=== PATIENT | male | born 1950 | race Caucasian/White ===

== ENCOUNTER 2020-05-19 01:09 | Outpatient (CLI) | payer MEDICARE, BC, SELFPAY ==
[2020-05-19 20:15] LABS: SARS-CoV-2 RNA PCR Negative
== END 2020-05-19 01:10 | disposition home or self-care (01) ==
LOC: ANHCOVIDDT 01:10
PROVIDERS: PCP Family Medicine; Visit Provider Internal Medicine Gastroenterology
DX: Z01.812 Encounter for preprocedural laboratory examination (principal); Z20.828 Contact with and (suspected) exposure to other viral communicable diseases
CPT/HCPCS: 87635; C9803; U0003

== ENCOUNTER 2020-05-22 01:12 | Day surgery (SDC) | payer MEDICARE, BC, SELFPAY ==
[2020-05-16 10:07] VITALS: BMI 22.7
[2020-05-22 07:40] VITALS: BP 142/85; PULSE 69; RESP 20; TEMP 36.4; O2SAT 98
[2020-05-22] MEDS: LACTATED RINGERS 1,000 ML 150 ML IV CONT (07:53)
--- NOTE | 2020-05-22 08:14 | WPDANESEPPF ---
Anes - Initial Pre Proc Eval Procedure: Operation Date: 05/22/20 09:00 Proposed Procedures p Esophagogastroduodenoscopy - Yifan Simpson MD Date/Time: 05/22/20 08:14 Surgeon: Yifan Simpson MD Pre Op Diagnosis: dysphagia Patient Data Age: 69 Gender: M Height: 5 ft 10 in Weight: 68.7 kg Last Vital Signs Temp 36.4 C L 05/22/20 07:40 Pulse 69 05/22/20 07:40 Resp 20 05/22/20 07:40 BP 142/85 H 05/22/20 07:40 Pulse Ox 98 05/22/20 07:40 Allergies Allergy/AdvReac Type Severity Reaction Status Date / Time cat dander Allergy Mild Congested Verified 05/22/20 07:37 Home Medications Medication Instructions Recorded Confirmed Type travoprost 0.004 % eye drops 1 drop EACH EYE QPM 06/23/19 05/16/20 History omeprazole 40 mg capsule,delayed 40 mg PO DAILY #30 cap 04/26/20 05/16/20 Rx release Patient hx anesthesia problems: none Family hx anesthesia problems: none PMFSH Past Medical History Medical History Cerebral atherosclerosis Dysphagia History of bleeding peptic ulcer Tear of medial meniscus of right knee Social History Social History Smoking packs per day: 1 Smoking cigarettes per day: 20.0 Years smoked: 2 Smoking pack-years: 2.00 Smoking status: Former smoker Alcohol intake: current Drinks per week: 1 Substance use: never Substance use type: does not use Living arrangements: with family Gender identity (if verbalized by the patient): Male Spiritual care concerns: No Anes - Eval Final PreProcedure Day of Procedure 05/22/20 08:14 Patient weight: normal Heart: regular rate and rhythm Lungs: clear to auscultation Airway: Mallampati scale class II Neurological: alert and oriented Last oral intake: >/= 8 hours ASA classification: II Emergent: no Anesthetic plan: proceed Anesthesia type and monitoring: general GIVS and standard monitoring Informed Consent: The patient's anesthetic plan and its attendant risks and benefits were discussed with the patient/family/POA. Questions were solicited and answers provided to the satisfaction of the patient/family/POA.
--- NOTE | 2020-05-22 08:41 | WPDGICN ---
Assessment and Plan Assessment and plan (1) Dysphagia: Qualifiers: Dysphagia type: esophageal phase Qualified Code(s): R13.10 - Dysphagia, unspecified Code(s): R13.10 - Dysphagia, unspecified Status: Acute Assessment and Plan: Patient has difficulty with food catching in the mid epigastric area. Plan to evaluate more thoroughly with EGD. Agree with trial of omeprazole 20 mg p.o. daily. Soft diet is advised. Further recommendations will be given after endoscopy. (2) History of bleeding peptic ulcer: Code(s): Z87.11 - Personal history of peptic ulcer disease Status: Acute GI Consult Note Consult date/time: 05/22/20 08:41 HPI: Suhail Elise is a 69 year old male Seen in evaluation at the request of Dr. Ambrose Watkins. Patient has a history of difficulty swallowing over the last several years. He states food will enter the stomach but probably hold up. This happens more commonly with solid foods rather than liquids. He will feel gassy. Feels full very quickly. Eventually this will pass and he will feel better. He has noticed some improvement on taking omeprazole over the last 3 weeks. He has a rather vague upper abdominal discomfort. He denies any weight loss or bleeding. Omeprazole over the last 3 weeks has helped to some degree. The patient gives a very distant history of peptic ulcer disease for which she was treated. He had bleeding. He was treated for H pylori at that time. Family history is noncontributory. Patient denies any weight loss or bleeding currently. Review of Systems Review of Systems: All systems reviewed & are unremarkable except as noted in HPI and below PMFSH Past Medical History Medical History Cerebral atherosclerosis Dysphagia History of bleeding peptic ulcer Tear of medial meniscus of right knee Social History Social History Smoking packs per day: 1 Smoking cigarettes per day: 20.0 Years smoked: 2 Smoking pack-years: 2.00 Smoking status: Former smoker Alcohol intake: current Drinks per week: 1 Substance use: never Substance use type: does not use Living arrangements: with family Gender identity (if verbalized by the patient): Male Spiritual care concerns: No Meds Home Medications and Allergies Home Medications Medication Instructions Recorded Confirmed Type travoprost 0.004 % eye drops 1 drop EACH EYE QPM 06/23/19 05/16/20 History omeprazole 40 mg capsule,delayed 40 mg PO DAILY #30 cap 04/26/20 05/16/20 Rx release Allergies Allergy/AdvReac Type Severity Reaction Status Date / Time cat dander Allergy Mild Congested Verified 05/22/20 07:37 Vital Signs Vital Signs - 24 hr 05/22/20 07:40 Temperature 97.5 F L Pulse Rate 69 Respiratory Rate 20 Blood Pressure 142/85 H Pulse Oximetry 98 Exam Narrative: Exam Narrative: Physical exam reveals patient to be alert. Vital signs stable. HEENT exam unremarkable. Lungs are clear to auscultation and percussion. Heart is without murmur or extra sounds. Abdominal exam bowel sounds are present soft nontender no organomegaly. No distention. No tenderness.
[2020-05-22] MEDS: BENZOCAINE (*SP) 60 ML SPRAY CAN (HURRICAINE) 1 SPRAY MUCOUS MEM (08:52)
[2020-05-22 08:58] VITALS: BP 122/81; PULSE 68; RESP 18; O2SAT 97
[2020-05-22 09:08] VITALS: BP 128/64; PULSE 64; RESP 20; O2SAT 98
[2020-05-22 09:18] VITALS: BP 131/64; PULSE 57; RESP 15; O2SAT 99
== END 2020-05-22 09:38 | disposition home or self-care (01) ==
PROVIDERS: PCP Family Medicine; Visit Provider Internal Medicine Gastroenterology
PROC: 0DJ08ZZ Inspection of Upper Intestinal Tract, Via Natural or Artificial Opening Endoscopic (ICD-10-PCS; CPT 43235; principal; 2020-05-22 09:00)
DX: R13.10 Dysphagia, unspecified (principal); Q39.4 Esophageal web; Z87.11 Personal history of peptic ulcer disease; I67.2 Cerebral atherosclerosis; Z87.891 Personal history of nicotine dependence
CPT/HCPCS: 43450; 43235; J2704; J7120

== ENCOUNTER 2020-08-14 09:14 | Outpatient (CLI) | payer MEDICARE, BC, SELFPAY | END 2020-08-14 09:15 | disposition home or self-care (01) | LOC: ANHCOVIDVC 09:14 | PROVIDERS: PCP Family Medicine | DX: Z23 Encounter for immunization (principal) | CPT/HCPCS: 0001A; 91300 ==

== ENCOUNTER 2020-09-04 09:13 | Outpatient (CLI) | payer MEDICARE, BC, SELFPAY | END 2020-09-04 09:14 | disposition home or self-care (01) | LOC: ANHCOVIDVC 09:13 | PROVIDERS: PCP Family Medicine | DX: Z23 Encounter for immunization (principal) | CPT/HCPCS: 0002A; 91300 ==

== ENCOUNTER 2021-01-31 06:41 | Outpatient (CLI) | payer MEDICARE, BC, SELFPAY ==
[2021-01-31 08:04] LABS: Anion Gap 6 mmol/L (8-16); Blood Urea Nitrogen 19 mg/dL (9-20); Calcium 9.1 mg/dL (8.4-10.2); Carbon Dioxide 27 mmol/L (22-30); Chloride 107 mmol/L (98-107); Cholesterol 147 mg/dL (0-200); Estimated Glomerular Filt Rate > 60; Glucose 101 mg/dL (65-110); HDL Direct 44 mg/dL; Sodium 140 mmol/L (137-145); Triglycerides 96 mg/dL (<150)
[2021-01-31 08:16] LABS: LDL Cholesterol Direct 72 mg/dL
[2021-01-31 08:35] LABS: Prostate Specific Antigen 2.1 ng/mL (< OR = 4.0)
== END 2021-01-31 06:42 | disposition home or self-care (01) ==
PROVIDERS: PCP Family Medicine; Visit Provider Physician Assistant Medical
DX: Z13.1 Encounter for screening for diabetes mellitus (principal); E78.5 Hyperlipidemia, unspecified; Z13.220 Encounter for screening for lipoid disorders; Z12.5 Encounter for screening for malignant neoplasm of prostate
CPT/HCPCS: 36415; 80048; 80061; 84153; G0103

== ENCOUNTER 2021-10-12 06:49 | Outpatient (CLI) | payer MEDICARE, BC, SELFPAY ==
[2021-10-12 08:09] LABS: Alanine Aminotransferase 15 U/L (4-50); Cholesterol 155 mg/dL (0-200); Creatine Kinase 148 U/L (55-170); HDL Direct 43 mg/dL; Triglycerides 64 mg/dL (<150)
[2021-10-12 08:20] LABS: LDL Cholesterol Direct 80 mg/dL
== END 2021-10-12 06:50 | disposition home or self-care (01) ==
LOC: ANHLAB 06:53
PROVIDERS: PCP Family Medicine; Visit Provider Physician Assistant Medical
DX: E78.5 Hyperlipidemia, unspecified (principal)
CPT/HCPCS: 36415; 80061; 82550; 84460

== ENCOUNTER 2022-09-16 06:50 | Outpatient (CLI) | payer MEDICARE, BC, SELFPAY ==
[2022-09-16 07:33] LABS: Anion Gap 6 mmol/L (8-16); Blood Urea Nitrogen 21 mg/dL (9-20); Calcium 8.6 mg/dL (8.4-10.2); Carbon Dioxide 29 mmol/L (22-30); Chloride 105 mmol/L (98-107); Cholesterol 137 mg/dL (0-200); Estimated Glomerular Filt Rate > 60; Glucose 91 mg/dL (65-110); HDL Direct 41 mg/dL; Potassium 3.9 mmol/L (3.4-5.0); Sodium 140 mmol/L (137-145); Triglycerides 106 mg/dL (<150)
[2022-09-16 07:47] LABS: LDL Cholesterol Direct 74 mg/dL
[2022-09-16 08:03] LABS: Prostate Specific Antigen 2.7 ng/mL (< OR = 4.0)
== END 2022-09-16 06:51 | disposition home or self-care (01) ==
LOC: ANHLAB 06:51
PROVIDERS: PCP Family Medicine; Visit Provider Nurse Practitioner Family
DX: R13.10 Dysphagia, unspecified (principal); E78.5 Hyperlipidemia, unspecified; Z12.5 Encounter for screening for malignant neoplasm of prostate; Z13.29 Encounter for screening for other suspected endocrine disorder
CPT/HCPCS: 36415; 80048; 80061; 84153; 84443; G0103

== ENCOUNTER 2022-10-14 15:15 | Emergency (ER) | payer MEDICARE, BC, SELFPAY ==
--- NOTE | ~2022-10-14 | XR_ITS ---
EXAMINATION: XR chest 2V 10/14/2022 16:50 INDICATION: Shortness of breath PROCEDURE: 2 view chest COMPARISON: 09/04/2014 FINDINGS: The lungs are clear. The cardiomediastinal silhouette is within normal limits. There are no pleural effusions. There is no pneumothorax suspected. IMPRESSION: 1: NO ACUTE CARDIOPULMONARY DISEASE. Reviewed, dictated and finalized at location L.
[2022-10-14 15:25] VITALS: BP 137/70; PULSE 60; RESP 16; TEMP 36.6; O2SAT 96
--- NOTE | 2022-10-14 15:33 | ECG_ITS ---
Measurements Intervals [place] Rate: 58 P: -43 NV: 146 QRS: 28 QRSD: 101 T: 30 QT: 391 QTc: 385 Interpretive Statements SINUS BRADYCARDIA CANNOT RULE OUT SEPTAL INFARCT, AGE INDETERMINATE ABNORMAL ECG NO PREVIOUS ECG AVAILABLE FOR COMPARISON Electronically Signed On 10-15-2022 14:08:46 CDT by Ousmane Palomino D.O.
[2022-10-14 16:53] LABS: Basophils Percent Auto 0.8 % (0.2-1.2); Eosinophils Absolute Auto 0.1 K/mm3 (0-0.3); Eosinophils Percent Auto 2.2 % (0-4.4); Hematocrit 43.6 % (42.0-52.0); Hemoglobin 15.5 g/dL (14.0-18.0); Immature Granulocyte Absolute 0.01 K/mm3 (0.00-0.031); Immature Granulocyte Percent A 0.2 % (0-0.5); Lymphocytes Absolute Auto 1.22 K/mm3 (0.9-3.2); Lymphocytes Percent Auto 24.5 % (18.3-44.2); Mean Corpuscular HGB Conc 35.6 g/dl (32-36); Mean Corpuscular Hemoglobin 33.3 pg (26-34); Mean Corpuscular Volume 93.6 fl (80-100); Mean Platelet Volume 10.2 fl (7.4-10.4); Monocytes Absolute Auto 0.5 K/mm3 (0.1-0.6); Monocytes Percent Auto 10.2 % (2.6-8.5); Neutrophils Absolute Auto 3.1 K/mm3 (1.3-6.7); Neutrophils Percent Auto 62.1 % (45.5-73.1); Platelet Count Result 217 k/mm3 (150-375); Red Blood Count 4.66 M/mm3 (4.6-6.20); Red Cell Distribution Width 12.9 % (11.5-14.5)
[2022-10-14 17:04] LABS: Alanine Aminotransferase 18 U/L (6-50); Albumin Level 4.3 g/dL (3.5-5.1); Alkaline Phosphatase 61 U/L (38-126); Anion Gap 5 mmol/L (8-16); Aspartate Amino Transferase 29 U/L (17-59); Blood Urea Nitrogen 21 mg/dL (9-20); Carbon Dioxide 26 mmol/L (22-30); Chloride 107 mmol/L (98-107); Estimated CRCL calculation 49 ml/min; Estimated Glomerular Filt Rate 59; Glucose 95 mg/dL (65-110); Sodium 138 mmol/L (137-145)
--- NOTE | 2022-10-14 17:48 | ED.GENADULT ---
HPI - General Adult General Chief complaint: Shortness of Breath/Dyspnea Stated complaint: generalized weakness Time Seen by Provider: 10/14/22 16:40 Source: patient and family Mode of arrival: ambulatory Limitations: no limitations History of Present Illness HPI narrative: 71-year-old here with complaints of intermittent shortness of breath. Patient states that he has to take a deep breath, several times a day at times. He denied having any chest pain. He also states that they have after eating meal he has to take a deep breath. He states that he is not anxious but it is making him stressful. Related Data Home Medications Medication Instructions Recorded Confirmed travoprost 0.004 % eye drops 1 drop ophthalmic (eye) QPM 06/23/19 09/15/22 (Travatan Z) Allergies Allergy/AdvReac Type Severity Reaction Status Date / Time No Known Allergies Allergy Verified 10/14/22 16:40 Review of Systems Review of Systems: All systems reviewed & are unremarkable except as noted in HPI and below Constitutional: Constitutional: Reports no additional constitutional complaints Eyes: Eyes: Reports no additional eye complaints ENT: Reports system reviewed and no additional complaints, except as documented Cardiovascular: Cardiovascular: Reports no additional cardiovascular complaints Respiratory: Respiratory: Reports as per HPI Gastrointestinal: Gastrointestinal: Reports no additional gastrointestinal complaints Genitourinary: Genitourinary: Reports no additional male genitourinary complaints Musculoskeletal: Musculoskeletal: Reports no additional musculoskeletal complaints Integumentary/Breasts: Skin/Breast: Reports system reviewed and no additional complaints, except as docu Neurologic: Reports system reviewed and no additional complaints, except as documented PMF Past Medical History Medical History BMI 21.0-21.9, adult Cerebral atherosclerosis Dysphagia History of bleeding peptic ulcer Tear of medial meniscus of right knee Surgical History Surgical History H/O knee surgery Family History Family History Mother No problems noted. Sibling No problems noted. Social History Social History Smoking packs per day: 1 Smoking cigarettes per day: 20.0 Years smoked: 2 Smoking pack-years: 2.00 Smoking status: Former smoker Second hand tobacco smoke exposure: No Alcohol intake: current Drinks per week: 1 Substance use: never Substance use type: does not use Lack of Transportation: No Lack of Food: Never True Current Housing: I Have Housing Concerned About Future Housing: No Difficulty Paying Gas/Electric Bills: No Difficulty Paying for Meds: No Currently Unemployed: No Education: Bachelor's Degree Difficulty w/ Childcare or Family Care: No Living arrangements: with family Occupation/Education: retired 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 HEAD: Normocephalic, atraumatic. EYES: PERRLA and EOMI.. NECK: Supple. CHEST: Clear to auscultation. No respiratory distress. HEART: Regular rate and rhythm. No murmur heard. Normal peripheral pulses. ABDOMEN: Soft, nontender, nondistended, normal active bowel sounds. EXTREMITIES: Normal range of motion. No edema. SKIN: Warm, dry, no rash. NEURO: No focal deficits. Alert and oriented x3. PSYCH: Normal mood and affect. Course Course Emergency Course: Patient remained asymptomatic while he was here in the ER. Informed him and his about his lab work, EKG and chest x-ray findings. Because of intermittent take deep b
[2022-10-14 18:16] VITALS: RESP 20; O2SAT 100
== END 2022-10-14 18:17 | disposition home or self-care (01) ==
LOC: ANHED 18:02
PROVIDERS: Preventive Medicine Aerospace Medicine; Emergency Provider Family Medicine; PCP Family Medicine
DX: F41.9 Anxiety disorder, unspecified (principal); I67.2 Cerebral atherosclerosis; Z87.891 Personal history of nicotine dependence; R00.1 Bradycardia, unspecified; R94.31 Abnormal electrocardiogram [ECG] [EKG]
CPT/HCPCS: 36415; 71046; 80053; 85025; 93005; 99284

== ENCOUNTER 2022-10-30 07:49 | Outpatient (CLI) | payer MEDICARE, BC, SELFPAY ==
--- NOTE | ~2022-10-30 | NM_ITS ---
EXAM: NM gastric emptying study DATE: 10/30/2022 13:01 CDT INDICATION: Esophageal obstruction TECHNIQUE: A gastric emptying study was performed using the methodology of Keiry HAYDEN, et al. J Nucl Med 2007; 48:568-572. The patient was given a meal consisting of 2 scrambled eggs labeled with 0.944 mCi Tc-99m sulfur colloid, 2 slices of toast, two packages of jam, and approximately 120 mL of water . Simultaneous anterior and posterior 1-min images of the abdomen were obtained with the patient supi ne at multiple time points over a total period of 4 hours. The geometric mean of anterior and posteri or views was determined, and the percentage retention was calculated for each time point. COMPARISON: CT dated 02/14/2019 FINDINGS: Gastric retention of the radiotracer-labeled meal was 50%, 32%, and 3% at the 1-hour, 2-ho ur, and 4-hour time points, respectively. With this technique, apparent rapid gastric emptying is sug gested by <30% gastric retention at 1 hour. Delayed gastric emptying is defined by gastric retention of >90% at 1 hour, >60% retention at 2 hours, or >10% retention at 4 hours. IMPRESSION: 1. Normal gastric emptying. Reviewed, dictated and finalized at location L. IMPRESSION: 1. Normal gastric emptying.
== END 2022-10-30 07:50 | disposition home or self-care (01) ==
PROVIDERS: PCP Family Medicine; Visit Provider Family Medicine
DX: K22.2 Esophageal obstruction (principal); R14.0 Abdominal distension (gaseous)
CPT/HCPCS: 78264; A9541

== ENCOUNTER 2023-09-30 07:42 | Outpatient (CLI) | payer MEDICARE, BC, SELFPAY ==
[2023-09-30 08:31] LABS: Alanine Aminotransferase 16 U/L (6-50); Albumin Level 4.4 g/dL (3.5-5.1); Alkaline Phosphatase 60 U/L (38-126); Anion Gap 5 mmol/L (4-12); Aspartate Amino Transferase 27 U/L (17-59); Bilirubin,Total 1.1 mg/dL (0.2-1.3); Blood Urea Nitrogen 16 mg/dL (9-20); Calcium 9.4 mg/dL (8.4-10.2); Carbon Dioxide 28 mmol/L (22-30); Chloride 108 mmol/L (98-107); Cholesterol 137 mg/dL (0-200); Estimated Glomerular Filt Rate > 60; Glucose 107 mg/dL (65-110); HDL Direct 46 mg/dL; Potassium 4.5 mmol/L (3.4-5.0); Sodium 141 mmol/L (137-145); Triglycerides 109 mg/dL (<150)
[2023-09-30 08:42] LABS: LDL Cholesterol Direct 78 mg/dL
[2023-09-30 09:01] LABS: Prostate Specific Antigen 3.9 ng/mL (< OR = 4.0)
== END 2023-09-30 07:43 | disposition home or self-care (01) ==
LOC: ANHLAB 07:46
PROVIDERS: PCP Family Medicine; Visit Provider Nurse Practitioner Family
DX: Z12.5 Encounter for screening for malignant neoplasm of prostate (principal); E78.5 Hyperlipidemia, unspecified; Z13.29 Encounter for screening for other suspected endocrine disorder
CPT/HCPCS: 36415; 80053; 80061; 84153; 84443; G0103

== ENCOUNTER 2024-03-04 14:09 | Outpatient (CLI) | payer MEDICARE, BC, SELFPAY ==
[2024-03-04 15:03] LABS: Basophils Percent Auto 0.7 % (0.2-1.2); Eosinophils Absolute Auto 0.1 K/mm3 (0-0.3); Eosinophils Percent Auto 3.3 % (0-4.4); Hematocrit 42.5 % (42.0-52.0); Hemoglobin 15.5 g/dL (14.0-18.0); Immature Granulocyte Absolute 0.01 K/mm3 (0.00-0.031); Immature Granulocyte Percent A 0.2 % (0-0.5); Lymphocytes Absolute Auto 1.35 K/mm3 (0.9-3.2); Mean Corpuscular HGB Conc 36.5 g/dl (32-36); Mean Corpuscular Hemoglobin 33.5 pg (26-34); Mean Platelet Volume 10.4 fl (7.4-10.4); Monocytes Absolute Auto 0.4 K/mm3 (0.1-0.6); Monocytes Percent Auto 10.2 % (2.6-8.5); Neutrophils Absolute Auto 2.3 K/mm3 (1.3-6.7); Neutrophils Percent Auto 53.6 % (45.5-73.1); Platelet Count Result 221 k/mm3 (150-375); Red Blood Count 4.62 M/mm3 (4.6-6.20); White Blood Count 4.2 K/mm3 (4.5-10.0)
[2024-03-04 15:27] LABS: Alanine Aminotransferase 14 U/L (6-50); Albumin Level 4.1 g/dL (3.5-5.1); Alkaline Phosphatase 57 U/L (38-126); Anion Gap 8 mmol/L (4-12); Aspartate Amino Transferase 28 U/L (17-59); Bilirubin,Total 1.2 mg/dL (0.2-1.3); Blood Urea Nitrogen 21 mg/dL (9-20); Calcium 8.9 mg/dL (8.4-10.2); Carbon Dioxide 27 mmol/L (22-30); Chloride 106 mmol/L (98-107); Estimated Glomerular Filt Rate > 60; Glucose 93 mg/dL (65-110); Potassium 3.8 mmol/L (3.4-5.0); Sodium 141 mmol/L (137-145)
[2024-03-04 15:51] LABS: Prostate Specific Antigen 3.6 ng/mL (< OR = 4.0)
== END 2024-03-04 14:10 | disposition home or self-care (01) ==
PROVIDERS: PCP Family Medicine; Visit Provider Physician Assistant Medical
DX: D72.9 Disorder of white blood cells, unspecified (principal); R10.11 Right upper quadrant pain; G89.29 Other chronic pain; R97.20 Elevated prostate specific antigen [PSA]
CPT/HCPCS: 36415; 80053; 84153; 85025; 86664; 86665

== ENCOUNTER 2024-03-10 09:39 | Outpatient (CLI) | payer MEDICARE, BC, SELFPAY ==
--- NOTE | ~2024-03-10 | US_ITS ---
Abdominal Sonogram: Real-time sonographic imaging of the abdomen was performed. Clinical History: Abdominal pain Findings: The liver appears normal with no evidence of solid mass lesion or bile duct dilatation. Sm all hepatic cyst noted. Main portal vein demonstrates normal direction of flow. The spleen is normal in size without evidence of focal lesion. The gallbladder is well distended, and appears normal with no evidence of gallstone or wall thickening. The common bile duct measures 4 mm. The visualized fraire creas, aorta, and IVC are unremarkable. The right kidney measures 10.2 cm in length and the left kid jered measures 10.8 cm. There is no hydronephrosis or renal calculus. Impression: No significant abnormality. Reviewed, dictated and finalized at [facility]. Impression: No significant abnormality.
== END 2024-03-10 09:40 | disposition home or self-care (01) ==
LOC: ANHIMG 09:41
PROVIDERS: PCP Family Medicine; Visit Provider Physician Assistant Medical
DX: G89.29 Other chronic pain (principal); R10.11 Right upper quadrant pain
CPT/HCPCS: 76700

== ENCOUNTER 2024-04-06 08:12 | Outpatient (CLI) | payer MEDICARE, BC, SELFPAY ==
[2024-04-06 09:07] LABS: Basophils Percent Auto 0.8 % (0.2-1.2); Eosinophils Absolute Auto 0.2 K/mm3 (0-0.3); Eosinophils Percent Auto 3.9 % (0-4.4); Hematocrit 46.2 % (42.0-52.0); Hemoglobin 16.4 g/dL (14.0-18.0); Immature Granulocyte Absolute 0.01 K/mm3 (0.00-0.031); Immature Granulocyte Percent A 0.3 % (0-0.5); Lymphocytes Absolute Auto 1.25 K/mm3 (0.9-3.2); Lymphocytes Percent Auto 32.1 % (18.3-44.2); Mean Corpuscular HGB Conc 35.5 g/dl (32-36); Mean Corpuscular Hemoglobin 33.1 pg (26-34); Mean Corpuscular Volume 93.3 fl (80-100); Mean Platelet Volume 10.6 fl (7.4-10.4); Monocytes Absolute Auto 0.4 K/mm3 (0.1-0.6); Monocytes Percent Auto 10.3 % (2.6-8.5); Neutrophils Absolute Auto 2.1 K/mm3 (1.3-6.7); Neutrophils Percent Auto 52.6 % (45.5-73.1); Platelet Count Result 207 k/mm3 (150-375); Red Blood Count 4.95 M/mm3 (4.6-6.20); Red Cell Distribution Width 12.8 % (11.5-14.5); White Blood Count 3.9 K/mm3 (4.5-10.0)
== END 2024-04-06 08:13 | disposition home or self-care (01) ==
PROVIDERS: PCP Family Medicine; Visit Provider Physician Assistant Medical
DX: R14.0 Abdominal distension (gaseous) (principal); D72.9 Disorder of white blood cells, unspecified
CPT/HCPCS: 36415; 85025

== ENCOUNTER 2024-05-06 08:49 | Emergency (ER) | payer MEDICARE, BC, SELFPAY ==
--- NOTE | ~2024-05-06 | XR_ITS ---
EXAMINATION: XR shoulder LT min 2V DATE: 05/06/2024 09:12 INDICATION: Left shoulder pain post fall TECHNIQUE: AP internally and externally rotated, AP oblique externally rotated and transscapular Y vi ews of the left shoulder were obtained. COMPARISON: None FINDINGS: Normal alignment. No fracture.Mild left of acromioclavicular and glenohumeral osteoarthritis. Visual ized portions of the left lung are clear with no pneumothorax or evident pleural effusion. Soft tissu es are unremarkable. 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 No acute osseous abnormality Reviewed, dictated and finalized at location A. [facility]
[2024-05-06 08:54] VITALS: BP 146/84; PULSE 61; RESP 18; TEMP 36.6; O2SAT 100
--- NOTE | 2024-05-06 09:37 | ED_ITS ---
HPI - Extremity Injury (Upper) General Chief Complaint: Extremity Injury, Upper Stated Complaint: fall yesterday, L shoulder pain Time Seen by Provider: 05/06/24 09:03 Source: patient Mode of arrival: ambulatory Limitations: no limitations History of Present Illness HPI narrative: this is a 73-year-old male that presents to the emergency department after a fall yesterday. Reports he tripped and fell down about 2 steps. He landed on his left shoulder. Reports decreased range of motion in the shoulder due to pain. He did not hit his head or lose consciousness. He is not on anticoagulation. Denies weakness or numbness. Related Data Home Medications Medication Instructions Recorded Confirmed travoprost 0.004 % eye drops 1 drop ophthalmic (eye) QPM 06/23/20 03/01/24 (Travatan Z) Allergies Allergy/AdvReac Type Severity Reaction Status Date / Time No Known Allergies Allergy Verified 05/06/24 08:50 Review of Systems Review of Systems: CONSTITUTIONAL: Denies fever MUSCULOSKELETAL: Reports joint pain, and myalgia. NEUROLOGIC: Denies numbness, or weakness. All systems reviewed & are unremarkable except as noted in HPI and below PMFSH Past Medical History Medical History Bloating BMI 21.0-21.9, adult Cerebral atherosclerosis Dysphagia Esophageal stricture History of bleeding peptic ulcer Tear of medial meniscus of right knee Surgical History Surgical History H/O knee surgery Family History Family History Mother No problems noted. Sibling No problems noted. Social History Social History Smoking packs per day: 1 Smoking cigarettes per day: 20.0 Years smoked: 2 Smoking pack-years: 2.00 Smoking status: Former smoker Second hand tobacco smoke exposure: No Alcohol intake: current Drinks per week: 1 Substance use: never Substance use type: does not use Lack of Transportation: No Lack of Food: Never True Current Housing: I Have Housing Concerned About Future Housing: No Difficulty Paying Gas/Electric Bills: No Difficulty Paying for Meds: No Currently Unemployed: No Education: Bachelor's Degree Difficulty w/ Childcare or Family Care: No Living arrangements: with family Occupation/Education: retired 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 HEAD: Normocephalic, atraumatic. EYES: EOMI. CHEST: Clear to auscultation. No respiratory distress. No wheezes rales or rhonchi HEART: Regular rate and rhythm. No murmur heard. Normal peripheral pulses. EXTREMITIES: Decreased active range of motion in the left shoulder due to pain. No edema or obvious deformity. Normal radial pulse. Normal sensation SKIN: Warm, dry, no rash. NEURO: No focal deficits. Alert and oriented x3. PSYCH: Normal mood and affect Course Course Emergency Course: patient updated on his workup. Offered further evaluation with advanced imaging with CT scan, he declines at this time. Will be placed in sling and given follow-up with Orthopedics Vital Signs Vital signs: Vital Signs Temperature 97.9 F 05/06/24 08:54 Pulse Rate 61 05/06/24 08:54 Respiratory Rate 18 05/06/24 08:54 Blood Pressure 146/84 H 05/06/24 08:54 Pulse Oximetry 100 05/06/24 08:54 Oxygen Delivery Room Air 05/06/24 08:54 Temperature 97.9 F 05/06/24 08:54 Pulse Rate 61 05/06/24 08:54 Respiratory Rate 18 05/06/24 08:54 Blood Pressure 146/84 H 05/06/24 08:54 Pulse Oximetry 100 05/06/24 08:54 Oxygen Delivery Room Air 05/06/24 08:54 MDM - Extremity Injury (Upper) MDM Narrative Medical decision making narrative: patient presents to the emergency department after a fall yesterday with left shoulder pain. Reports he fell down 2 steps. Landed on his left shoulder. He did not hit his head or lose consciousness. He is not on anticoagulation. No other focal injuries or areas of pain. He is neurovascularly intact. Left shoulder x-ray shows mild osteoarthritis. No acute osseous abnormalities. Patient placed in a sling for comfort and instructed to follow up with his orthopedics doctor. 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 No acute osseous abnormality Critical Care Time Critical Care Time Critical Care Time: No Discharge Plan Discharge Clinical Impression: Shoulder sprain Qualifiers: Encounter type: initial encounter Shoulder sprain type: unspecified sprain Laterality: left Qualified Code(s): S43.402A - Unspecified sprain of left shoulder joint, initial encounter Patient Disposition: Home, Self-Care Condition: Stable Instructions: Shoulder Sprain (ED) Additional Instructions: Return to the ER if you experience fever, weakness, numbness, redness and swelling of your arm, or any other symptoms that are concerning to you Rest, use ice/heat, take anti-inflammatories (Aleve, Ibuprofen, Naproxen, etc) or Tylenol as needed for pain Follow up with your orthopedics doctor Prescriptions: No Action travoprost [Travatan Z] 0.004 % drops 1 drop EACH EYE QPM omeprazole 20 mg capsule,delayed release(DR/EC) 20 mg PO DAILY Qty: 30 12RF Follow-up/Referrals: Ambrose Watkins MD [Primary Care Provider] - Loc Nicolas MD [Physician] -
== END 2024-05-06 09:51 | disposition home or self-care (01) ==
PROVIDERS: Emergency Provider Physician Assistant; PCP Family Medicine
DX: S43.402A Unspecified sprain of left shoulder joint, initial encounter (principal); W10.9XXA Fall (on) (from) unspecified stairs and steps, initial encounter; Z87.891 Personal history of nicotine dependence
CPT/HCPCS: 73030; 99283; A4565

== ENCOUNTER 2024-07-11 13:09 | Outpatient (CLI) | payer MEDICARE, BC, SELFPAY ==
--- NOTE | ~2024-07-11 | XR_ITS ---
Right Knee Technique: AP, lateral, and sunrise views were obtained. Clinical History: Pain Findings: No fracture or dislocation is seen. Osseous alignment is anatomic. There is mild tricompart mental degenerative spurring. There is chondrocalcinosis of the lateral meniscus. Small joint effusio n is seen. Impression: Mild degenerative change. Chondrocalcinosis, as above. Small joint effusion. Reviewed, dictated and finalized at location [facility] Impression: Mild degenerative change. Chondrocalcinosis, as above. Small joint effusion.
--- OUTSIDE RECORDS SUMMARY | 2024-07-11 14:08 | XMS_ITS | Patient Health Summary ---
Author Organization [facility] Address [address] [place] [address] Care Team Providers Care [employer] Medical Sergeant Name Role Phone Ambrose Watkins MD Primary Care Provider [phone] Note from [facility],non-owned Affiliates and Associated Physician Practices is amultiple site organization consisting of ambulatory clinics and hospital sitesin [place], [place], [place] and [place]. This disclosure is being madepursuant to the Care Everywhere program and may not contain all information available regarding this patient. Last updated 18.[facility] [employer] Allergies No known active allergies Active Problems Problem Noted Date Diagnosed Date Need for prophylactic vaccin ation and inoculation against influenza 05/05/2021 Immunizations * INFLUENZA VACCINE, ADJUVANTED, QUADR. (FLUAD QUADRIVALENT; 65Y+) (AIIV4)(Given 05/05/2021) * INFLUENZA VACCINE, HIGH-DOSE, QUADR. (FLUZONE HIGH-DOSE QUADRIVALENT; 65Y+), 0.7 ML (HD-IIV4)(Given 04/14/2017, 04/08/2016) * INFLUENZA VACCINE, QUADR. (FLUZONE; FLULAVAL; FLUARIX; AFLURIA QUADRIVALENT; 6MO+), 0.5 ML (IIV4)(Given 04/19/2018) * TDAP (7yrs+)(Given 07/28/2019) Social History Tobacco Use Types Packs/Day Years Used Date Smoking Tobacco: Never Assessed Sex and Gender Information Value Date Recorded Sex Assigned at Not on file Gender Identity Not on file Sexual Orientation Not on file Care Teams [employer] Medical Sergeant Relationship Specialty Start Date End Date Ambrose Watkins MD [address] [place] [address] PCP - General Family Medicine 04/08/16
--- OUTSIDE RECORDS SUMMARY | 2024-07-11 14:08 | XMS_ITS | Clinical Summary ---
Author Organization [facility] Address [address] [address] Care Team Providers Care Digital Account Supervisor Name Role Phone Ambrose Watkins MD Primary Care Provider [phone] Source Comments [facility],non-owned Affiliates and Associated Physician Practices is amultiple site organization consisting of ambulatory clinics and hospital sitesin [place], [place], [place] and [place]. This disclosure is being madepursuant to the Care Everywhere program and may not contain all information available regarding this patient. Last updated 18.[facility] Allergies No known active allergies Active Problems Problem Noted Date Diagnosed Date Need for prophylactic vaccin ation and inoculation against influenza 05/05/2021 Immunizations Name Administration Dates Next Due INFLUENZA VACCINE, ADJUVANTE D, QUADR. (FLUAD QUADRIVALENT; 65Y+) (AIIV4) 05/05/2021 INFLUENZA VACCINE, HIGH-DOSE , QUADR. (FLUZONE HIGH-DOSE QUADRIVALENT; 65Y+), 0.7 ML (HD-IIV4) 04/14/2017,04/08/2016 INFLUENZA VACCINE, QUADR. (F LUZONE; FLULAVAL; FLUARIX; AFLURIA QUADRIVALENT; 6MO+), 0.5 ML (IIV4) 04/19/2018 TDAP (7yrs+) 07/28/2019 Social History Tobacco Use Types Packs/Day Years Used Date Smoking Tobacco: Never Assessed Sex and Gender Information Value Date Recorded Sex Assigned at Not on file Gender Identity Not on file Sexual Orientation Not on file Plan of Treatment Health Maintenance Due Date Last Done Comments COLOGUARD (AGES 45-75) - COLON CA SCREENING 1948 COLON MONITORING 1948 COLONOSCOPY - COLON CA SCREENING 1948 CT COLONOGRAPHY - COLON CA SCREENING 1948 Colorectal Cancer Screening 1948 FIT - COLON CA SCREENING 1948 FLEX SIG - COLON CA SCREENING 1948 LIPID TESTING 1948 MEDICARE AWV ? 12 MONTHS 1948 HEPATITIS C SCREENING 10/12/1966 PNEUMOCOCCAL VACCINE 50+ (1 of 1 - PCV) 1998 ZOSTER VACCINE (1 of 2) 1998 Respiratory Syncytial Virus (RSV) Vaccine Pt: or over 60 yrs (1 - 1-dose 75+ series) 10/17/2023 COVID-19 VACCINE (5 - season) 2024 04/09/2021, 09/04/2020, 08/28/2020, Additional history exists INFLUENZA VACCINE (#1) 2024 , 04/14/2019, 04/19/2018, Additional history exists DEPRESSION SCREENING 06/08/2024 DTAP/TDAP/TD VACCINES (2 - Td or Tdap) 07/28/2029 07/28/2019 HEPATITIS B VACCINE Aged Out No longe r eligible based on patient's age to complete this topic HIB VACCINE Aged Out No longer eligi ble based on patient's age to complete this topic HPV VACCINE Aged Out No longer eligi ble based on patient's age to complete this topic MENINGOCOCCAL (Group B) VACCINE Aged Out No longer eligible based on patient's age to complete this topic MENINGOCOCCAL VACCINE Aged Out No greg ag eligible based on patient's age to complete this topic Care Teams Digital Account Supervisor Relationship Specialty Start Date End Date Ambrose Watkins MD [address] [place] [address] PCP - General Family Medicine 04/08/16
--- OUTSIDE RECORDS SUMMARY | 2024-07-11 14:08 | XMS_ITS | Referral Summary ---
Author Organization [facility] Address [address] [place] [address] Care Team Providers Care Events Intern Name Role Phone Ambrose Watkins MD Primary Care Provider [phone] Source Comments [facility],non-owned Affiliates and Associated Physician Practices is amultiple site organization consisting of ambulatory clinics and hospital sitesin [place], [place], [place] and [place]. This disclosure is being madepursuant to the Care Everywhere program and may not contain all information available regarding this patient. Last updated 18.[facility] Allergies No known active allergies Active Problems [...] Orientation Not on file Plan of Treatment Not on file Care Teams Events Intern Relationship Specialty Start Date End Date Ambrose Watkins MD [address] [place] [address] PCP - General Family Medicine 04/08/16
--- OUTSIDE RECORDS SUMMARY | 2024-07-11 14:08 | XMS_ITS | Clinical Summary ---
Author Organization [facility] Address [address] [place] [address] Phone Care Team Providers Care Csr Retail Name Role Phone Ambrose Watkins MD Primary Care Provider + [phone] Liliya Montalvo MUSEUM OR ZOO DIRECTOR Unavailable [phone] Allergies Active Allergy Reactions Criticality Noted Date Comments Cat Dander Unknown 12/31/2012 Medications latanoprost (XALATAN) 0.005 % ophthalmic solution INT 1 GTT IN OU QD HS 11/10/2019 Active brimonidine-tana loL (COMBIGAN) 0.2-0.5 % ophthalmic solution Active omeprazole (PriLOSEC) 20 mg capsule Take by mouth daily 09/08/2020 Active Active Problems Problem Noted Date Diagnosed Date Hemochromatosis 11/12/2017 Encounters Date Type Department Care Team Description 07/06/2024 2:45 PM MANAGER DIVISION Infusion [facility] [place] at [address] [place] [address] Hereditary hemochromatosis (HCC) 07/06/2024 2:00 PM MANAGER DIVISION Lab [facility] [place] at [address] [address] Hereditary hemochromatosis (HCC) 06/15/2024 Orders Only [facility] [address] [place] [address] 6 [place] [address] Dia De Anda Hereditary hemochromatosis (HCC) (Primary Dx) 06/13/2024 Telephone [facility] [place] Floor 6 [place] [address] Dia De Anda Parisa 05/12/2024 Anticoagulation Visit [facility] Floor [address] [place] [address] Hazel Hardwick RN 05/03/2024 Orders Only [facility] 6 [place] [address] Darling Frank Hereditary hemochromatosis (HCC) (Primary Dx) 04/27/2024 10:45 AM MANAGER DIVISION Infusion [facility] at [address] [place] [address] Hereditary hemochromatosis (HCC) (Primary Dx) 04/27/2024 10:15 AM MANAGER DIVISION Lab [facility] at [address] [address] Hereditary hemochromatosis (HCC) 04/27/2024 Telephone [facility] 6 [place] [address] Darling Frank 04/27/2024 Orders Only [facility] [address] [facility] 2nd Floor [address] [place] [address] Jayne Ag NP from Last 3 Months Immunizations Name Administration Dates Next Due Influenza, Quad, Adjuvantate d, Intramuscular 02/29/2020 Influenza, Quadrivalent, Spl it, Preservative Free, Intramuscular 04/19/2018 Influenza, Trivalent, High D ose, Split, Preservative Free, Intramuscular 04/14/2019,04/14/2017,04/08/2016 Pfizer SARS-CoV-2 Monovalent Vaccination (12+ Yrs) HINTON-READY TO USE 04/09/2022,03/10/2022,12/16/2021 Pfizer SARS-CoV-2 Monovalent Vaccination (12+ Yrs) PURPLE 09/11/2020,08/28/2020 Pneumococcal Polysaccharide PPV23 06/11/2018 Tdap 07/28/2019 ZOSTER LIVE 04/20/2017,04/02/2016 Surgical History Surgery Date Site/Laterality Comments COLONOSCOPY Medical History Medical History Date Comments Hereditary hemochromatosis (HCC) Social History Tobacco Use Types Packs/Day Years Used Date Smoking Tobacco: Former Cigarettes 0.5 1 Smokeless Tobacco: Never Alcohol Use Standard Drinks/Week Comments Yes 0 (1 standard drink = 0.6 oz pur e alcohol) AUDIT-C Answer Date Recorded Q1: How often do you have a drink containing alc ohol? 2-3 times a week 10/19/2023 Q2: How many drinks containi ng alcohol do you have on a typical day when you are drinking? 1 or 2 10/19/2023 Q3: How often do you have si x or more drinks on one occasion? Never 10/19/2023 Sex and Gender Information Value Date Recorded Sex Assigned at Not on file Legal Sex Male 10:28 AM MANAGER DIVISION Gender Identity Not on file Sexual Orientation Not on file Obstetrics History Last Filed Vital Signs Vital Sign Reading Time Taken Comments Blood Pressure 144/78 07/06/2024 2:13 PM MANAGER DIVISION Pulse 70 07/06/2024 2:13 PM MANAGER DIVISION Temperature 36.6 ??C (97.9 ??F) 07/06/2024 2:13 PM CS T Respiratory Rate 18 07/06/2024 2:13 PM MANAGER DIVISION Oxygen Saturation 98% 07/06/2024 2:13 PM MANAGER DIVISION Inhaled Oxygen Concentration - - Weight 70.9 kg (156 lb 4.8 oz) 07/06/2024 2:13 P M MANAGER DIVISION Height 179.1 cm (5' 10.5 ) 10/19/2023 1:42 PM CD T Body Mass Index 22.11 10/19/2023 1:42 PM CDT Plan of Treatment Health Maintenance Due Date Last Done Comments Colon Cancer Screening-Colonoscopy 1948 Depression Screening 1948 Fall Risk Assessment 1948 Hepatitis C Screening 1948 Hepatitis B Screening 1966 Abdominal Aortic Aneurysm (A AA) Screen 2013 Well Visit 65+ 2013 Zoster Vaccine (2 of 3) 06/15/2017 04/20/2017, 04/02 Pneumococcal vaccine 65+ (2 of 2 - PCV) 06/11/2019 06/11/2018 Covid-19 Vaccine (2023-2 5 season) 2024 04/09/2022, 03/10/2022, 12/16/2021, Additional history exists Influenza Vaccine (#1) 2024 , 04/14/2019, 04/19/2018, Additional history exists DTaP/Tdap/Td Vaccine (2 - Td or Tdap) 07/28/2029 07/28/2019 Procedures Procedure Name Priority Date/Time Associated Diagnosis Comments EGFR Routine 07/06/2024 1:42 PM MANAGER DIVISION Hereditary hemochromatosis (HCC) DIFFERENTIAL AUTO Routine 07/06/2024 1:4 2 PM MANAGER DIVISION Hereditary hemochromatosis (HCC) IRON PROFILE W/ IBC Routine 07/06/2024 1 :42 PM MANAGER DIVISION Hereditary hemochromatosis (HCC) FERRITIN Routine 07/06/2024 1:42 PM MANAGER DIVISION Hereditary hemochromatosis (HCC) CBC WITH AUTO DIFFERENTIAL Routine 07/06/2024 1:42 PM MANAGER DIVISION Hereditary hemochromatosis (HCC) COMPREHENSIVE METABOLIC PANEL Routine 07/06/2024 1:42 PM MANAGER DIVISION Hereditary hemochromatosis (HCC) EGFR Routine 04/27/2024 10:27 AM MANAGER DIVISION Hereditary hemochromatosis (HCC) DIFFERENTIAL AUTO Routine 04/27/2024 10: 27 AM MANAGER DIVISION Hereditary hemochromatosis (HCC) CBC WITH AUTO DIFFERENTIAL Routine 04/27/2024 10:27 AM MANAGER DIVISION Hereditary hemochromatosis (HCC) FERRITIN Routine 04/27/2024 10:27 AM MANAGER DIVISION Hereditary hemochromatosis (HCC) RETICULOCYTES Routine 04/27/2024 10:27 AM MANAGER DIVISION Hereditary hemochromatosis (HCC) IRON PROFILE W/ IBC Routine 04/27/2024 1 0:27 AM MANAGER DIVISION Hereditary hemochromatosis (HCC) COMPREHENSIVE METABOLIC PANEL Routine 04/27/2024 10:27 AM MANAGER DIVISION Hereditary hemochromatosis (HCC) [id number], TUMOR MARKER Routine 04/27/2024 10:27 AM MANAGER DIVISION Hereditary hemochromatosis (HCC) from Last 3 Months Results * eGFR (07/06/2024 1:42 PM MANAGER DIVISION) eGFR 89 >=60 mL/min/1. 73 m2 Comment: Interpretive Data Reference Interval Normal ?>/= 90 mL/min/1.73m2 Mildly decreased* ? 60 - 89 mL/min/1.73m2 Mildly to moderately decreased ?45 - 59 mL/min/1.73m2 Moderately to severely decreased ??30 - 44 mL/min/1.73m2 Severely decreased ?15 - 29 mL/min/1.73m2 Kidney Failure ?< 15 ??mL/min/1.73m2 *Relative to young adult level Estimated glomerular filtration rate is determined by the 2020 CKD-EPI equation recommended by the National Kidney Foundation (A Unifying Approach to GFR Estimation: Recommendations of the NKF-ASK Task Force on Reassessing the Inclusion of Race in Diagnosing Kidney Disease, JASN 2020). The CKD-EPI equation should not be used for patients with unstable renal function and has not been validated in children and those over 70. Current interpretive data was last reviewed 2021. Testing performed by: [facility], [address] [place] [address], [place]., [address] Blood 07/06/2024 1:42 PM MANAGER DIVISION 07/06/2024 1:49 PM MANAGER DIVISION Jayne Ag MUSEUM OR ZOO DIRECTOR LAB BLOOD ORDERABLES Final Result [facility] [address] Department [place] [address] * Differential, auto (07/06/2024 1:42 PM MANAGER DIVISION) Neutrophil abs 2.7 1.5 - 6.5 K/cumm Comment:Testing performed by : [address] [address] Imm gran abs 0.0 0.0 - 0.1 K/cumm [facility] Comment:Testing performed by : [address] [address] Lymphocyte abs 1.0 0.8 - 3.3 K/cumm T[facility]HA Comment:Testing performed by : [address] [address] Monocyte abs 0.3 0.2 - 0.8 K/cumm [facility] Comment:Testing performed by : [address] [address] Eosinophil abs 0.0 0.0 - 0.5 K/cumm T[facility] Comment:Testing performed by : [address] [address] Basophil abs 0.0 0.0 - 0.1 K/cumm [facility] Comment:Testing performed by : [address] [address] Neutrophil pct 66.0 % [facility] Comment: Interpretive Data Percent cell count reference ranges are not reported, since discordance with absolute values may lead to misinterpretation of CBC data. Current Interpretive Data was last revised on 2017. Testing performed by: [address] [address] Imm gran pct 0.2 % [facility] Comment: Interpretive Data Percent cell count reference ranges are not reported, since discordance with absolute values may lead to misinterpretation of CBC data. Current Interpretive Data was last revised on 2017. Testing performed by: [address] [address] Lymphocyte pct 24.0 % [facility] Comment: Interpretive Data Percent cell count reference ranges are not reported, since discordance with absolute values may lead to misinterpretation of CBC data. Current Interpretive Data was last revised on 2017. Testing performed by: [address] [address] Monocyte pct 8.3 % [facility] Comment: Interpretive Data Percent cell count reference ranges are not reported, since discordance with absolute values may lead to misinterpretation of CBC data. Current Interpretive Data was last revised on 2017. Testing performed by: [address] [address] Eosinophil pct 1.0 % [facility] Comment: Interpretive Data Percent cell count reference ranges are not reported, since discordance with absolute values may lead to misinterpretation of CBC data. Current Interpretive Data was last revised on 2017. Testing performed by: [address] [address] Basophil pct 0.5 % [facility] Comment: Interpretive Data Percent cell count reference ranges are not reported, since discordance with absolute values may lead to misinterpretation of CBC data. Current Interpretive Data was last revised on 2017. Testing performed by: [address] [address] Blood 07/06/2024 1:42 PM MANAGER DIVISION 07/06/2024 1:49 PM MANAGER DIVISION Jayne Ag MUSEUM OR ZOO DIRECTOR LAB BLOOD ORDERABLES Final Result [facility] [address] [facility] Department [place] [address] * (ABNORMAL) Iron profile w/ IBC (07/06/2024 1:42 PM MANAGER DIVISION) Iron 154(H) 50 - 150 mcg/dL Comment:Testing performed by : [address] [address] TIBC 206(L) 250 - 400 mcg/dL [facility] Comment:Testing performed by : [address] [address] Transferrin saturation 75(H) 20 - 50 % [facility] Comment:Testing performed by : [address] [address] Blood 07/06/2024 1:42 PM MANAGER DIVISION 07/06/2024 4:43 PM MANAGER DIVISION Jayne Ag MUSEUM OR ZOO DIRECTOR LAB BLOOD ORDERABLES Final Result [facility] [address] [facility] Department [place] [address] * (ABNORMAL) CBC with auto differential (07/06/2024 1:42 PM MANAGER DIVISION) Pathologist [facility] WBC 4.1 3.8 - 9.9 K/cumm Comment:Testing performed by : [address] [address] Hgb 15.5 13.0 - 17.5 g/dL [facility] Comment:Testing performed by : [address] [address] Hct 42.9 38.9 - 50.3 % [facility] Comment:Testing performed by : [address] [address] Plt 252 150 - 400 K/cumm [facility] Comment:Testing performed by : [address] [address] MPV 9.7 9.1 - 12.3 fL [facility] Comment:Testing performed by : [address] [address] RBC 4.83 4.30 - 5.80 M/cumm [facility] Comment:Testing performed by : [address] [address] MCV 88.8 81.3 - 96.4 fL [facility] Comment:Testing performed by : [address] [address] MCH 32.1 27.1 - 33.3 pg [facility] MUNOZ Comment:Testing performed by : [address] [address] MCHC 36.1(H) 32.3 - 35.7 g/dL [facility]HA MUNOZ Comment:Testing performed by : [address] [address] RDW CV 12.5 11.1 - 14.9 % [facility] Comment:Testing performed by : [address] [address] RDW SD 40.7 35.7 - 48.1 fL [facility] MUNOZ Comment:Testing performed by : [address] [address] NRBC abs 0.00 0.00 - 0.01 K/cumm [facility] Comment:Testing performed by : [address] [address] Blood 07/06/2024 1:42 PM MANAGER DIVISION 07/06/2024 1:49 PM MANAGER DIVISION Jayne Ag MUSEUM OR ZOO DIRECTOR LAB BLOOD ORDERABLES Final Result Performing Organization Address City/[facility] Co de Phone Number [address] [place] [address] * Ferritin (07/06/2024 1:42 PM MANAGER DIVISION) Pathologist [facility] Ferritin 132 30 - 400 ng/mL Comment:Testing performed by : [address], [address] Blood 07/06/2024 1:42 PM MANAGER DIVISION 07/06/2024 4:43 PM MANAGER DIVISION Jayne Ag LAB BLOOD ORDERABLES Final Result Performing Organization Address City/[facility] Co de Phone Number [address] [place] [address] * (ABNORMAL) Comprehensive metabolic panel (07/06/2024 1:42 PM MANAGER DIVISION) [facility] Sodium 145 135 - 145 mmol/L Comment:Testing performed by : [address] [address] Potassium, pl 4.2 3.3 - 4.9 mmol/L [facility] MUNOZ Comment:Testing performed by : [address] [address] Chloride 108 97 - 110 mmol/L [facility] Comment:Testing performed by : [facility], [address] [place] [address]., [address] CO2 27 22 - 32 mmol/L [facility] Comment:Testing performed by : [address] [address] Anion gap 10 2 - 15 mmol/L [facility] Comment:Testing performed by : [address], [place]., [address] BUN 17 6 - 25 mg/dL [facility] Comment:Testing performed by : [address], [place]., [address] Creatinine 0.90 0.80 - 1.30 mg/dL [facility] Comment:Testing performed by : [address] [address] Glucose 115 70 - 199 mg/dL [facility] Comment: Interpretive Data Fasting glucose >/= 126 mg/dl is diagnostic for diabetes. ?? Fasting is defined as no caloric intake for at least 8 hours. Fasting glucose between 100 mg/dl to 125 mg/dl is diagnostic of prediabetes. In a patient with classic symptoms of hyperglycemia or hyperglycemic crisis, a random glucose >/= 200 mg/dl is diagnostic for diabetes. In the absence of unequivocal hyperglycemia, results should be confirmed by repeat testing. The classification and Diagnosis of Diabetes Diabetes Care 202; 46: S19-S40. Current interpretive data was last revised 2022. Testing performed by: [address] [address] Calcium 9.1 8.5 - 10.3 mg/dL [facility] Comment:Testing performed by : [address] [address] Bilirubin, total 0.7 0.1 - 1.2 mg/dL [facility] Comment:Testing performed by : [address] [address] Protein, pl 6.4(L) 6.5 - 8.5 g/dL [facility] Comment:Testing performed by : [address] [address] Albumin 4.1 3.5 - 5.0 g/dL [facility] Comment:Testing performed by : [facility], [address] [place] [address]., [address] Alk phos 73 40 - 130 Units/L [facility] Comment:Testing performed by : [address] [address] ALT 8 7 - 55 Units/L [facility] Comment:Testing performed by : [address] [address] AST 14 10 - 50 Units/L [facility] Comment:Testing performed by : [address] [address] Blood 07/06/2024 1:42 PM MANAGER DIVISION 07/06/2024 1:49 PM MANAGER DIVISION us Jayne Ag MUSEUM OR ZOO DIRECTOR LAB BLOOD ORDERABLES Final Result Performing Organization Address City/State/[facility] Co de Phone Number [facility] [address] [facility] Department of Laboratories [place], [place] [id number] * eGFR (04/27/2024 10:27 AM MANAGER DIVISION) eGFR 70 >=60 mL/min/1. 73 m2 Comment: Interpretive Data Reference Interval Normal ?>/= 90 mL/min/1.73m2 Mildly decreased* ? 60 - 89 mL/min/1.73m2 Mildly to moderately decreased ?45 - 59 mL/min/1.73m2 Moderately to severely decreased ??30 - 44 mL/min/1.73m2 Severely decreased ?15 - 29 mL/min/1.73m2 Kidney Failure ?< 15 ??mL/min/1.73m2 *Relative to young adult level Estimated glomerular filtration rate is determined by the 2020 CKD-EPI equation recommended by the National Kidney Foundation (A Unifying Approach to GFR Estimation: Recommendations of the NKF-ASK Task Force on Reassessing the Inclusion of Race in Diagnosing Kidney Disease, BERNADETTESN 2020). The CKD-EPI equation should not be used for patients with unstable renal function and has not been validated in children and those over 70. Current interpretive data was last reviewed 2021. Testing performed by: [address] [address] Blood 04/27/2024 10:2 7 AM MANAGER DIVISION 04/27/2024 10:30 AM MANAGER DIVISION Jayne Ag MUSEUM OR ZOO DIRECTOR LAB BLOOD ORDERABLES Final Result [facility] [address] [facility] Department [place] [address] * Differential, auto (04/27/2024 10:27 AM MANAGER DIVISION) Neutrophil abs 2.1 1.5 - 6.5 K/cumm Comment:Testing performed by : [address] [address] Imm gran abs 0.0 0.0 - 0.1 K/cumm [facility] Comment:Testing performed by : [address] [address] Lymphocyte abs 0.9 0.8 - 3.3 K/cumm [facility] Comment:Testing performed by : [address] [address] Monocyte abs 0.4 0.2 - 0.8 K/cumm [facility] Comment:Testing performed by : [address] [address] Eosinophil abs 0.1 0.0 - 0.5 K/cumm [facility] Comment:Testing performed by : [address] [address] Basophil abs 0.0 0.0 - 0.1 K/cumm [facility] Comment:Testing performed by : [address] [address] Neutrophil pct 59.2 % [facility] Comment: Interpretive Data Percent cell count reference ranges are not reported, since discordance with absolute values may lead to misinterpretation of CBC data. Current Interpretive Data was last revised on 2017. Testing performed by: [address] [address] Imm gran pct 0.3 % [facility] Comment: Interpretive Data Percent cell count reference ranges are not reported, since discordance with absolute values may lead to misinterpretation of CBC data. Current Interpretive Data was last revised on 2017. Testing performed by: [address] [address] Lymphocyte pct 26.6 % [facility] Comment: Interpretive Data Percent cell count reference ranges are not reported, since discordance with absolute values may lead to misinterpretation of CBC data. Current Interpretive Data was last revised on 2017. Testing performed by: [address] [address] Monocyte pct 10.8 % [facility] Comment: Interpretive Data Percent cell count reference ranges are not reported, since discordance with absolute values may lead to misinterpretation of CBC data. Current Interpretive Data was last revised on 2017. Testing performed by: [address] [address] Eosinophil pct 2.3 % [facility] Comment: Interpretive Data Percent cell count reference ranges are not reported, since discordance with absolute values may lead to misinterpretation of CBC data. Current Interpretive Data was last revised on 2017. Testing performed by: [address] [address] Basophil pct 0.8 % [facility] Comment: Interpretive Data Percent cell count reference ranges are not reported, since discordance with absolute values may lead to misinterpretation of CBC data. Current Interpretive Data was last revised on 2017. Testing performed by: [address] [address] Blood 04/27/2024 10:2 7 AM MANAGER DIVISION 04/27/2024 10:30 AM MANAGER DIVISION Jayne Ag NP LAB BLOOD ORDERABLES Final Result [facility] [address] [facility] Department [place] [address] * (ABNORMAL) Iron profile w/ IBC (04/27/2024 10:27 AM MANAGER DIVISION) [facility] Iron 209(H) 50 - 150 mcg/dL Comment:Testing performed by : [address] [address] TIBC <226(L) 250 - 400 mcg/dL T[facility]HA MUNOZ Comment:Testing performed by : [address] [address] Transferrin saturation >92(H) 20 - 50 % [facility]HA MUNOZ Comment:Testing performed by : [address] [address] Blood 04/27/2024 10:2 7 AM MANAGER DIVISION 04/27/2024 12:06 PM MANAGER DIVISION Jayne Ag MUSEUM OR ZOO DIRECTOR LAB BLOOD ORDERABLES Final Result Performing Organization Address City/State/[facility] Co de Phone Number T[facility]HA MUNOZ [address] [facility] Department [place] [address] * (ABNORMAL) CBC with auto differential (04/27/2024 10:27 AM MANAGER DIVISION) [facility] WBC 3.5(L) 3.8 - 9.9 K/cumm Comment:Testing performed by : [address] [address] Hgb 15.7 13.0 - 17.5 g/dL [facility]HA MUNOZ Comment:Testing performed by : [address] [address] Hct 43.6 38.9 - 50.3 % [facility] MUNOZ Comment:Testing performed by : [address] [address] Plt 227 150 - 400 K/cumm TISHA MUNOZ Comment:Testing performed by : [address] [address] MPV 9.8 9.1 - 12.3 fL [facility]HA MUNOZ Comment:Testing performed by : [address] [address] RBC 4.82 4.30 - 5.80 M/cumm [facility] Comment:Testing performed by : [address] [address] MCV 90.5 81.3 - 96.4 fL [facility] Comment:Testing performed by : [address] [address] MCH 32.6 27.1 - 33.3 pg T[facility]HA MUNOZ Comment:Testing performed by : [address] [address] MCHC 36.0(H) 32.3 - 35.7 g/dL [facility] Comment:Testing performed by : [address], [address] RDW CV 12.6 11.1 - 14.9 % [facility] Comment:Testing performed by : [address] [address] RDW SD 41.5 35.7 - 48.1 fL [facility] Comment:Testing performed by : [address] [address] NRBC abs 0.00 0.00 - 0.01 K/cumm [facility] Comment:Testing performed by : [address] [address] Blood 04/27/2024 10:2 7 AM MANAGER DIVISION 04/27/2024 10:30 AM MANAGER DIVISION Jayne Ag NP LAB BLOOD ORDERABLES Final Result [facility] [address] [facility] Department [place] [address] * Wshli-1-[id number], Tumor Marker (04/27/2024 10:27 AM MANAGER DIVISION) Pathologist [facility] alpha Fetoprotein 2.2 0.0 - 8.3 ng/mL Comment: Interpretive Data The Cathy AFP assay procedure was used. Results from different manufacturers or methods may not be comparable. Serial testing should be performed using the same method. 0-1 ??month. ?? AFP concentrations may reach or exceed 100,000 ng/mL after depending on gestational age and weight. 1-3 months ? 50 ? 1000 ng/ml 3-6 months ? 10 ? 500 ng/ml 6-12 months ?3.0 ? 100 ng/ml >1 year ?0.0 ? 8.3 ng/ml References Jewel Mccrary et al. ??J. Ped Surg 1978;13:155-156 Mehreen Marcano et al. Clin Chem Lab Med 2018;57:783-797 Kierangeovanna Butt et al. ??Clin Chem 2014;8025-3852. Current interpretive data was last revised 2022. Testing performed by: [address] [address] Blood 04/27/2024 10:2 7 AM MANAGER DIVISION 04/27/2024 12:06 PM MANAGER DIVISION Jayne Ag NP LAB BLOOD ORDERABLES Final Result Performing Organization Address City/State/[facility] Co de Phone Number [facility] [address] [facility] Department [place] [address] * Reticulocyte Count (04/27/2024 10:27 AM MANAGER DIVISION) Retics, absolute 0.048 0.020 - 0.087 M/cumm Comment:Testing performed by : [address] [address] Retics 1.0 0.4 - 2.9 % [facility] Comment:Testing performed by : [address] [address] Reticulocyte Hgb 37.1 30.5 - 38.0 pg [facility]HA Comment:Testing performed by : [address] [address] Blood 04/27/2024 10:2 7 AM MANAGER DIVISION 04/27/2024 10:30 AM MANAGER DIVISION Jayne Ag NP LAB BLOOD ORDERABLES Final Result [facility] [place] [address] * Ferritin (04/27/2024 10:27 AM MANAGER DIVISION) Pathologist [facility] Ferritin 141 30 - 400 ng/mL Comment:Testing performed by : [address] [address] Blood 04/27/2024 10:2 7 AM MANAGER DIVISION 04/27/2024 12:06 PM MANAGER DIVISION Jayne Ag MUSEUM OR ZOO DIRECTOR LAB BLOOD ORDERABLES Final Result Performing Organization Address City/[facility] Co de Phone Number [facility] [address] [place] [address] * Comprehensive metabolic panel (04/27/2024 10:27 AM MANAGER DIVISION) [facility] Sodium 143 135 - 145 mmol/L Comment:Testing performed by : [address] [address] Potassium, pl 4.3 3.3 - 4.9 mmol/L TISHA Comment:Testing performed by : [address] [address] Chloride 106 97 - 110 mmol/L TISHA Comment:Testing performed by : [address] [address] CO2 26 22 - 32 mmol/L TISHA Comment:Testing performed by : [address] [address] Anion gap 11 2 - 15 mmol/L TISHA Comment:Testing performed by : [address] [address] BUN 18 6 - 25 mg/dL TISHA Comment:Testing performed by : [address] [address] Creatinine 1.10 0.80 - 1.30 mg/dL TISHA Comment:Testing performed by : [address] [address] Glucose 76 70 - 199 mg/dL TISHA Comment: Interpretive Data Fasting glucose >/= 126 mg/dl is diagnostic for diabetes. ?? Fasting is defined as no caloric intake for at least 8 hours. Fasting glucose between 100 mg/dl to 125 mg/dl is diagnostic of prediabetes. In a patient with classic symptoms of hyperglycemia or hyperglycemic crisis, a random glucose >/= 200 mg/dl is diagnostic for diabetes. In the absence of unequivocal hyperglycemia, results should be confirmed by repeat testing. The classification and Diagnosis of Diabetes Diabetes Care 202; 46: S19-S40. Current interpretive data was last revised 2022. Testing performed by: [address] [address] Calcium 9.4 8.5 - 10.3 mg/dL TISHA Comment:Testing performed by : [address] [address] Bilirubin, total 0.7 0.1 - 1.2 mg/dL TISHA Comment:Testing performed by : [address] [address] Protein, pl 6.5 6.5 - 8.5 g/dL TISHA Comment:Testing performed by : [address] [address] Albumin 4.2 3.5 - 5.0 g/dL TISHA Comment:Testing performed by : [address] [address] Alk phos 74 40 - 130 Units/L TISHA Comment:Testing performed by : [address] [address] ALT 10 7 - 55 Units/L TISHA Comment:Testing performed by : [address] [address] AST 18 10 - 50 Units/L TISHA Comment:Testing performed by : [address] [address] Blood 04/27/2024 10:2 7 AM MANAGER DIVISION 04/27/2024 10:30 AM MANAGER DIVISION us Jayne Ag NP LAB BLOOD ORDERABLES Final Result [facility] [id number] [facility] Department [place] [address] from Last 3 Months Insurance MEDICARE [facility] FED[employer]AL MEDICARE [facility] Address: [address] [place] [phone] [facility] [employer] Care Teams Csr Retail Relationship Specialty Start Date End Date Ambrose Watkins MD PCP - General Family Medicine 05/10/18 Liliya Montalvo NP [address] [place] [address] Nurse Practitioner Medical Oncology 10/20/22
--- OUTSIDE RECORDS SUMMARY | 2024-07-11 14:08 | XMS_ITS | Referral Summary ---
Author Organization [facility] Address [address] [place] [address] Phone Care Team Providers Care Aluminum Container Tester Name Role Phone Ambrose Watkins MD Primary Care Provider + [phone] Liliya Montalvo INSTALLATION SPECIALIST Unavailable [phone] Encounters Date Type Department Care Team Description 07/06/2024 2:45 PM RENT CONTROL OFFICE MANAGER Infusion [facility] at [address] [place] [address] Hereditary hemochromatosis (HCC) 07/06/2024 2:00 PM RENT CONTROL OFFICE MANAGER Lab [facility] at [address] [address] Hereditary hemochromatosis (HCC) 06/15/2024 Orders Only [facility] Hematology [address] [place] [phone] Dia De Anda Hereditary hemochromatosis (HCC) (Primary Dx) 06/13/2024 Telephone [facility] Hematology [address] [place] [address] 6 [place] [address] Dia De Anda 05/12/2024 Anticoagulation Visit [facility] Hematology [address] [place] [address] 6 [place] [address] Hazel Hardwick RN 05/03/2024 Orders Only [facility] Hematology [address] [place] [phone] Darling Frank Hereditary hemochromatosis (HCC) (Primary Dx) 04/27/2024 Telephone [facility] Hematology [address] [facility] Floor 6 [place] [phone] Darling Frank 04/27/2024 10:15 AM RENT CONTROL OFFICE MANAGER Lab [facility] [place] [address] [place] [address] Hereditary hemochromatosis (HCC) 04/27/2024 Orders Only [facility] Hematology [address] 2nd [address] [place] [address] Jayne Ag NP 04/27/2024 10:45 AM RENT CONTROL OFFICE MANAGER Infusion [facility] [place] at [address] [place] [phone] Hereditary hemochromatosis (HCC) (Primary Dx) from Last 3 Months Allergies Active Allergy Reactions Criticality Noted Date Comments Cat Dander Unknown 12/31/2012 Medications latanoprost (XALATAN) 0.005 % ophthalmic solution INT 1 GTT IN OU QD HS 11/10/2019 Active brimonidine-tana loL (COMBIGAN) 0.2-0.5 % ophthalmic solution Active omeprazole (PriLOSEC) 20 mg capsule Take by mouth daily 09/08/2020 Active Active Problems Problem Noted Date Diagnosed Date Hemochromatosis 11/12/2017 Immunizations Name Administration Dates Next Due Influenza, Quad, Adjuvantate d, Intramuscular 02/29/2020 Influenza, Quadrivalent, Spl it, Preservative Free, Intramuscular 04/19/2018 Influenza, Trivalent, High D ose, Split, Preservative Free, Intramuscular 04/14/2019,04/14/2017,04/08/2016 Pfizer SARS-CoV-2 Monovalent Vaccination (12+ Yrs) HINTON-READY TO USE 04/09/2022,03/10/2022,12/16/2021 Pfizer SARS-CoV-2 Monovalent Vaccination (12+ Yrs) PURPLE 09/11/2020,08/28/2020 Pneumococcal Polysaccharide PPV23 06/11/2018 Tdap 07/28/2019 ZOSTER LIVE 04/20/2017,04/02/2016 Social History Tobacco Use Types Packs/Day Years [...] on file Legal Sex Male 10:28 AM RENT CONTROL OFFICE MANAGER Gender Identity Not on file Sexual Orientation Not on file Last Filed Vital Signs Vital Sign Reading Time Taken Comments Blood Pressure 144/78 07/06/2024 2:13 PM RENT CONTROL OFFICE MANAGER Pulse 70 07/06/2024 2:13 PM RENT CONTROL OFFICE MANAGER Temperature 36.6 ??C (97.9 ??F) 07/06/2024 2:13 PM CS T Respiratory Rate 18 07/06/2024 2:13 PM RENT CONTROL OFFICE MANAGER Oxygen Saturation 98% 07/06/2024 2:13 PM RENT CONTROL OFFICE MANAGER Inhaled Oxygen Concentration - - Weight 70.9 kg (156 lb 4.8 oz) 07/06/2024 2:13 P M RENT CONTROL OFFICE MANAGER Height 179.1 cm (5' 10.5 ) 10/19/2023 1:42 PM CD T Body Mass Index 22.11 10/19/2023 1:42 PM CDT Plan of Treatment Not on file Procedures Procedure Name Priority Date/Time Associated Diagnosis Comments EGFR Routine 07/06/2024 1:42 PM RENT CONTROL OFFICE MANAGER Hereditary hemochromatosis (HCC) DIFFERENTIAL AUTO Routine 07/06/2024 1:4 2 PM RENT CONTROL OFFICE MANAGER Hereditary hemochromatosis (HCC) IRON PROFILE W/ IBC Routine 07/06/2024 1 :42 PM RENT CONTROL OFFICE MANAGER Hereditary hemochromatosis (HCC) FERRITIN Routine 07/06/2024 1:42 PM RENT CONTROL OFFICE MANAGER Hereditary hemochromatosis (HCC) CBC WITH AUTO DIFFERENTIAL Routine 07/06/2024 1:42 PM RENT CONTROL OFFICE MANAGER Hereditary hemochromatosis (HCC) COMPREHENSIVE METABOLIC PANEL Routine 07/06/2024 1:42 PM RENT CONTROL OFFICE MANAGER Hereditary hemochromatosis (HCC) EGFR Routine 04/27/2024 10:27 AM RENT CONTROL OFFICE MANAGER Hereditary hemochromatosis (HCC) DIFFERENTIAL AUTO Routine 04/27/2024 10: 27 AM RENT CONTROL OFFICE MANAGER Hereditary hemochromatosis (HCC) CBC WITH AUTO DIFFERENTIAL Routine 04/27/2024 10:27 AM RENT CONTROL OFFICE MANAGER Hereditary hemochromatosis (HCC) FERRITIN Routine 04/27/2024 10:27 AM RENT CONTROL OFFICE MANAGER Hereditary hemochromatosis (HCC) RETICULOCYTES Routine 04/27/2024 10:27 AM RENT CONTROL OFFICE MANAGER Hereditary hemochromatosis (HCC) IRON PROFILE W/ IBC Routine 04/27/2024 1 0:27 AM RENT CONTROL OFFICE MANAGER Hereditary hemochromatosis (HCC) COMPREHENSIVE METABOLIC PANEL Routine 04/27/2024 10:27 AM RENT CONTROL OFFICE MANAGER Hereditary hemochromatosis (HCC) SOPPO-3-PLEHWMACZER, TUMOR MARKER Routine 04/27/2024 10:27 AM RENT CONTROL OFFICE MANAGER Hereditary hemochromatosis (HCC) from Last 3 Months Results * eGFR (07/06/2024 1:42 PM RENT CONTROL OFFICE MANAGER) eGFR 89 >=60 mL/min/1. 73 m2 Comment: [...] was last reviewed 2021. Testing performed by: [address] [address] Blood 07/06/2024 1:42 PM RENT CONTROL OFFICE MANAGER 07/06/2024 1:49 PM RENT CONTROL OFFICE MANAGER Jayne Ag INSTALLATION SPECIALIST LAB BLOOD ORDERABLES Final Result TISHA [address] [facility] Department [place] [address] * Differential, auto (07/06/2024 1:42 PM RENT CONTROL OFFICE MANAGER) Neutrophil abs 2.7 1.5 - 6.5 K/cumm Comment:Testing performed by : [address] [address] Imm gran abs 0.0 0.0 - 0.1 K/cumm TISHA Comment:Testing performed by : [address] [address] Lymphocyte abs 1.0 0.8 - 3.3 K/cumm TISHA Comment:Testing performed by : [address] [address] Monocyte abs 0.3 0.2 - 0.8 K/cumm TISHA Comment:Testing performed by : [address] [address] Eosinophil abs 0.0 0.0 - 0.5 K/cumm TISHA Comment:Testing performed by : [address] [address] Basophil abs 0.0 0.0 - 0.1 K/cumm TISHA Comment:Testing performed by : [address] [address] Neutrophil pct 66.0 % CERTAMANNA Comment: Interpretive Data Percent cell count reference ranges are not reported, since discordance with absolute values may lead to misinterpretation of CBC data. Current Interpretive Data was last revised on 2017. Testing performed by: [address] [address] Imm gran pct 0.2 % TISHA Comment: Interpretive Data Percent cell count reference ranges are not reported, since discordance with absolute values may lead to misinterpretation of CBC data. Current Interpretive Data was last revised on 2017. Testing performed by: [address] [address] Lymphocyte pct 24.0 % TISHA Comment: Interpretive Data Percent cell count reference ranges are not reported, since discordance with absolute values may lead to misinterpretation of CBC data. Current Interpretive Data was last revised on 2017. Testing performed by: [address] [address] Monocyte pct 8.3 % TISHA Comment: Interpretive Data Percent cell count reference ranges are not reported, since discordance with absolute values may lead to misinterpretation of CBC data. Current Interpretive Data was last revised on 2017. Testing performed by: [address] [address] Eosinophil pct 1.0 % TISHA Comment: Interpretive Data Percent cell count reference ranges are not reported, since discordance with absolute values may lead to misinterpretation of CBC data. Current Interpretive Data was last revised on 2017. Testing performed by: [address] [address] Basophil pct 0.5 % CERTAMANNA Comment: Interpretive Data Percent cell count reference ranges are not reported, since discordance with absolute values may lead to misinterpretation of CBC data. Current Interpretive Data was last revised on 2017. Testing performed by: [address] [address] Blood 07/06/2024 1:42 PM RENT CONTROL OFFICE MANAGER 07/06/2024 1:49 PM RENT CONTROL OFFICE MANAGER Jayne Ag INSTALLATION SPECIALIST LAB BLOOD ORDERABLES Final Result Performing Organization Address [facility] de Phone Number TISHA [facility] [place] [address] * (ABNORMAL) Iron profile w/ IBC (07/06/2024 1:42 PM RENT CONTROL OFFICE MANAGER) Iron 154(H) 50 - 150 mcg/dL Comment:Testing performed by : [address] [address] TIBC 206(L) 250 - 400 mcg/dL TISHA MUNOZ Comment:Testing performed by : [address] [address] Transferrin saturation 75(H) 20 - 50 % TISHA MUNOZ Comment:Testing performed by : [address] [address] Blood 07/06/2024 1:42 PM RENT CONTROL OFFICE MANAGER 07/06/2024 4:43 PM RENT CONTROL OFFICE MANAGER Jayne Ag INSTALLATION SPECIALIST LAB BLOOD ORDERABLES Final Result Performing Organization Address [facility] de Phone Number [place] [phone] [facility] [place] [address] * (ABNORMAL) CBC with auto differential (07/06/2024 1:42 PM RENT CONTROL OFFICE MANAGER) WBC 4.1 3.8 - 9.9 K/cumm Comment:Testing performed by : [address] [address] Hgb 15.5 13.0 - 17.5 g/dL TISHA MUNOZ Comment:Testing performed by : [address] [address] Hct 42.9 38.9 - 50.3 % TISHA MUNOZ Comment:Testing performed by : [address] [address] Plt 252 150 - 400 K/cumm TISHA MUNOZ Comment:Testing performed by : [address] [address] MPV 9.7 9.1 - 12.3 fL TISHA MUNOZ Comment:Testing performed by : [address] [address] RBC 4.83 4.30 - 5.80 M/cumm TISHA MUNOZ Comment:Testing performed by : [address] [address] MCV 88.8 81.3 - 96.4 fL TISHA Comment:Testing performed by : [address] [address] MCH 32.1 27.1 - 33.3 pg TISHA Comment:Testing performed by : [address] [address] MCHC 36.1(H) 32.3 - 35.7 g/dL TISHA Comment:Testing performed by : [address], [address] RDW CV 12.5 11.1 - 14.9 % TISHA Comment:Testing performed by : [address] [address] RDW SD 40.7 35.7 - 48.1 fL TISHA Comment:Testing performed by : [address] [address] NRBC abs 0.00 0.00 - 0.01 K/cumm TISHA Comment:Testing performed by : [address] [address] Blood 07/06/2024 1:42 PM RENT CONTROL OFFICE MANAGER 07/06/2024 1:49 PM RENT CONTROL OFFICE MANAGER us Jayne Ag INSTALLATION SPECIALIST LAB BLOOD ORDERABLES Final Result TISHA [address] [facility] Department of Laboratories [place], [place] [id number] * Ferritin (07/06/2024 1:42 PM RENT CONTROL OFFICE MANAGER) Pathologist [facility] Ferritin 132 30 - 400 ng/mL Comment:Testing performed by : [address] [address] Blood 07/06/2024 1:42 PM RENT CONTROL OFFICE MANAGER 07/06/2024 4:43 PM RENT CONTROL OFFICE MANAGER Jayne Ag INSTALLATION SPECIALIST LAB BLOOD ORDERABLES Final Result [facility] [address] [facility] Department [place] [address] * (ABNORMAL) Comprehensive metabolic panel (07/06/2024 1:42 PM RENT CONTROL OFFICE MANAGER) Pathologist [facility] Sodium 145 135 - 145 mmol/L Comment:Testing performed by : [address] [address] Potassium, pl 4.2 3.3 - 4.9 mmol/L TISHA Comment:Testing performed by : [address] [address] Chloride 108 97 - 110 mmol/L TISHA Comment:Testing performed by : [address] [address] CO2 27 22 - 32 mmol/L TISHA Comment:Testing performed by : [address] [address] Anion gap 10 2 - 15 mmol/L TISHA Comment:Testing performed by : [address] [address] BUN 17 6 - 25 mg/dL TISHA Comment:Testing performed by : [address] [address] Creatinine 0.90 0.80 - 1.30 mg/dL TISHA Comment:Testing performed by : [address] [address] Glucose 115 70 - 199 mg/dL TISHA [...] was last revised 2022. Testing performed by: [address] [address] Calcium 9.1 8.5 - 10.3 mg/dL TISHA Comment:Testing performed by : [address] [address] Bilirubin, total 0.7 0.1 - 1.2 mg/dL TISHA Comment:Testing performed by : [address] [address] Protein, pl 6.4(L) 6.5 - 8.5 g/dL TISHA Comment:Testing performed by : [address] [address] Albumin 4.1 3.5 - 5.0 g/dL [facility] Comment:Testing performed by : [address] [address] Alk phos 73 40 - 130 Units/L TISHA Comment:Testing performed by : [address] [address] ALT 8 7 - 55 Units/L TISHA Comment:Testing performed by : [address] [address] AST 14 10 - 50 Units/L [facility] Comment:Testing performed by : [address] [address] Blood 07/06/2024 1:42 PM RENT CONTROL OFFICE MANAGER 07/06/2024 1:49 PM RENT CONTROL OFFICE MANAGER us Jayne Ag NP LAB BLOOD ORDERABLES Final Result TISHA [address] [facility] Department of Laboratories [place], [place] [id number] * eGFR (04/27/2024 10:27 AM RENT CONTROL OFFICE MANAGER) Pathologist [facility] eGFR 70 >=60 mL/min/1. 73 m2 Comment: [...] was last reviewed 2021. Testing performed by: [facility], [address] [place] [address]., [address] Blood 04/27/2024 10:2 7 AM RENT CONTROL OFFICE MANAGER 04/27/2024 10:30 AM RENT CONTROL OFFICE MANAGER us Jayne Ag INSTALLATION SPECIALIST LAB BLOOD ORDERABLES Final Result TISHA [address] [facility] Department [place] [address] * Differential, auto (04/27/2024 10:27 AM RENT CONTROL OFFICE MANAGER) [facility] Neutrophil abs 2.1 1.5 - 6.5 K/cumm Comment:Testing performed by : [address] [address] Imm gran abs 0.0 0.0 - 0.1 K/cumm [facility] Comment:Testing performed by : [address] [address] Lymphocyte abs 0.9 0.8 - 3.3 K/cumm [facility] Comment:Testing performed by : [address] [address] Monocyte abs 0.4 0.2 - 0.8 K/cumm [facility] Comment:Testing performed by : [address] [address] Eosinophil abs 0.1 0.0 - 0.5 K/cumm [facility] Comment:Testing performed by : [address] [address] Basophil abs 0.0 0.0 - 0.1 K/cumm [facility] Comment:Testing performed by : [address] [address] Neutrophil pct 59.2 % [facility] Comment: Interpretive Data Percent cell count reference ranges are not reported, since discordance with absolute values may lead to misinterpretation of CBC data. Current Interpretive Data was last revised on 2017. Testing performed by: [address] [address] Imm gran pct 0.3 % [facility] Comment: Interpretive Data Percent cell count reference ranges are not reported, since discordance with absolute values may lead to misinterpretation of CBC data. Current Interpretive Data was last revised on 2017. Testing performed by: [address] [address] Lymphocyte pct 26.6 % [facility] Comment: Interpretive Data Percent cell count reference ranges are not reported, since discordance with absolute values may lead to misinterpretation of CBC data. Current Interpretive Data was last revised on 2017. Testing performed by: [address] [address] Monocyte pct 10.8 % [facility] Comment: Interpretive Data Percent cell count reference ranges are not reported, since discordance with absolute values may lead to misinterpretation of CBC data. Current Interpretive Data was last revised on 2017. Testing performed by: [address] [address] Eosinophil pct 2.3 % TISHA Comment: Interpretive Data Percent cell count reference ranges are not reported, since discordance with absolute values may lead to misinterpretation of CBC data. Current Interpretive Data was last revised on 2017. Testing performed by: [address] [address] Basophil pct 0.8 % TISHA Comment: Interpretive Data Percent cell count reference ranges are not reported, since discordance with absolute values may lead to misinterpretation of CBC data. Current Interpretive Data was last revised on 2017. Testing performed by: [address] [address] Blood 04/27/2024 10:2 7 AM RENT CONTROL OFFICE MANAGER 04/27/2024 10:30 AM RENT CONTROL OFFICE MANAGER Jayne Ag LAB BLOOD ORDERABLES Final Result Performing Organization Address [facility] de Phone Number [place] [address] [facility] [place] [address] * (ABNORMAL) Iron profile w/ IBC (04/27/2024 10:27 AM RENT CONTROL OFFICE MANAGER) Iron 209(H) 50 - 150 mcg/dL Comment:Testing performed by : [address] [address] TIBC <226(L) 250 - 400 mcg/dL TISHA Comment:Testing performed by : [address] [address] Transferrin saturation >92(H) 20 - 50 % TISHA Comment:Testing performed by : [address] [address] Blood 04/27/2024 10:2 7 AM RENT CONTROL OFFICE MANAGER 04/27/2024 12:06 PM RENT CONTROL OFFICE MANAGER Jayne Ag INSTALLATION SPECIALIST LAB BLOOD ORDERABLES Final Result Performing Organization Address [facility] de Phone Number [facility] [address] Department [place] [address] * (ABNORMAL) CBC with auto differential (04/27/2024 10:27 AM RENT CONTROL OFFICE MANAGER) [facility] WBC 3.5(L) 3.8 - 9.9 K/cumm Comment:Testing performed by : [address] [address] Hgb 15.7 13.0 - 17.5 g/dL TISHA Comment:Testing performed by : [address] [address] Hct 43.6 38.9 - 50.3 % TISHA Comment:Testing performed by : [address], [address] Plt 227 150 - 400 K/cumm TISHA Comment:Testing performed by : [address] [address] MPV 9.8 9.1 - 12.3 fL TISHA Comment:Testing performed by : [address], [address] RBC 4.82 4.30 - 5.80 M/cumm TISHA Comment:Testing performed by : [address], [address] MCV 90.5 81.3 - 96.4 fL TISHA Comment:Testing performed by : [address] [address] MCH 32.6 27.1 - 33.3 pg TISHA Comment:Testing performed by : [address] [address] MCHC 36.0(H) 32.3 - 35.7 g/dL TISHA Comment:Testing performed by : [address], [address] RDW CV 12.6 11.1 - 14.9 % TISHA Comment:Testing performed by : [address], [address] RDW SD 41.5 35.7 - 48.1 fL TISHA Comment:Testing performed by : [address], [address] NRBC abs 0.00 0.00 - 0.01 K/cumm TISHA MUNOZ Comment:Testing performed by : [facility], [address] [place] [address]., [address] Blood 04/27/2024 10:2 7 AM RENT CONTROL OFFICE MANAGER 04/27/2024 10:30 AM RENT CONTROL OFFICE MANAGER Jayne Ag NP LAB BLOOD ORDERABLES Final Result TISHA [address] [facility] Department [place] [address] * [id number], Tumor Marker (04/27/2024 10:27 AM RENT CONTROL OFFICE MANAGER) alpha Fetoprotein 2.2 0.0 - 8.3 ng/mL [...] year ?0.0 ? 8.3 ng/ml References Jewel Piper. et al. ??J. Ped Surg 1978;13:155-156 Mehreen Marcano et al. Clin Chem Lab Med 2018;57:783-797 Kieran Butt et al. ??Clin Chem 2014;2823-6669. Current interpretive data was last revised 2022. Testing performed by: [facility], [address] [place] [address]., [address] Blood 04/27/2024 10:2 7 AM RENT CONTROL OFFICE MANAGER 04/27/2024 12:06 PM RENT CONTROL OFFICE MANAGER Jayne Ag NP LAB BLOOD ORDERABLES Final Result Performing Organization Address [facility] de Phone Number CHATO[address] [address] * Reticulocyte Count (04/27/2024 10:27 AM RENT CONTROL OFFICE MANAGER) [facility] Retics, absolute 0.048 0.020 - 0.087 M/cumm Comment:Testing performed by : [address] [address] Retics 1.0 0.4 - 2.9 % TISHA Comment:Testing performed by : [address] [address] Reticulocyte Hgb 37.1 30.5 - 38.0 pg TISHA Comment:Testing performed by : [address] [address] Blood 04/27/2024 10:2 7 AM RENT CONTROL OFFICE MANAGER 04/27/2024 10:30 AM RENT CONTROL OFFICE MANAGER Jayne Ag INSTALLATION SPECIALIST LAB BLOOD ORDERABLES Final Result Performing Organization Address [facility] de Phone Number [address] [address] * Ferritin (04/27/2024 10:27 AM RENT CONTROL OFFICE MANAGER) [facility] Ferritin 141 30 - 400 ng/mL Comment:Testing performed by : [address] [address] Blood 04/27/2024 10:2 7 AM RENT CONTROL OFFICE MANAGER 04/27/2024 12:06 PM RENT CONTROL OFFICE MANAGER Jayne Ag INSTALLATION SPECIALIST LAB BLOOD ORDERABLES Final Result Performing Organization Address [facility] de Phone Number [address] [address] * Comprehensive metabolic panel (04/27/2024 10:27 AM RENT CONTROL OFFICE MANAGER) [facility] Sodium 143 135 - 145 mmol/L Comment:Testing performed by : [address] [place]., [address] Potassium, pl 4.3 3.3 - 4.9 mmol/L [facility] Comment:Testing performed by : [address] [address] Chloride 106 97 - 110 mmol/L TISHA Comment:Testing performed by : [address], [place]., [address] CO2 26 22 - 32 mmol/L TISHA Comment:Testing performed by : [address] [address] Anion gap 11 2 - 15 mmol/L [facility] Comment:Testing performed by : [address] [address] BUN 18 6 - 25 mg/dL [facility] Comment:Testing performed by : [address], [place]., [address] Creatinine 1.10 0.80 - 1.30 mg/dL TISHA Comment:Testing performed by : [address] [address] Glucose 76 70 - 199 mg/dL [facility] Comment: Interpretive Data Fasting glucose >/= 126 [...] was last revised 2022. Testing performed by: [address] [address] Calcium 9.4 8.5 - 10.3 mg/dL TISHA Comment:Testing performed by : [address] [address] Bilirubin, total 0.7 0.1 - 1.2 mg/dL [facility] Comment:Testing performed by : [address] [address] Protein, pl 6.5 6.5 - 8.5 g/dL TISHA MUNOZ Comment:Testing performed by : [address] [address] Albumin 4.2 3.5 - 5.0 g/dL TISHA MUNOZ Comment:Testing performed by : [address] [address] Alk phos 74 40 - 130 Units/L TISHA Comment:Testing performed by : [address] [address] ALT 10 7 - 55 Units/L TISHA Comment:Testing performed by : [address] [address] AST 18 10 - 50 Units/L TISHA Comment:Testing performed by : [address] [address] Blood 04/27/2024 10:2 7 AM RENT CONTROL OFFICE MANAGER 04/27/2024 10:30 AM RENT CONTROL OFFICE MANAGER Jayne Ag INSTALLATION SPECIALIST LAB BLOOD ORDERABLES Final Result TISHA [address] [facility] Department [place] [address] from Last 3 Months Insurance MEDICARE [facility] MEDICARE [facility] Care Teams Aluminum Container Tester Relationship Specialty Start Date End Date Ambrose Watkins MD PCP - General Family Medicine 05/10/18 Liliya Montalvo NP [address] [place] [id number] Nurse Practitioner Medical Oncology 10/20/22
--- OUTSIDE RECORDS SUMMARY | 2024-07-11 14:08 | XMS_ITS | Continuity of Care Document ---
Author Organization [facility] Address [address] [place] [address] [place] [address] Phone Care Team Providers Care Mortgage Processing Manager Name Role Phone Vinay Paulino DO Unavailable Unavailable Advance Directives Directive Yes / No Effective Date File Name No Information Encounters Encounter Description Practice Location Reason(s) For Visit Diagnoses Date Provider Providers Copied on Encounter [facility], [id number] [place] [address] [address], [place], [place], [id number], [place] tel:[phone] [facility] No Information Jefferson Jose. [address] [facility], [place], [address], [place]. tel: [phone] Family History Family Member Type Diagnosis Age At Onset No Information Payers Payer name Insurance type Covered democrat ID Authoriza tion(s) [facility] [id number] Social History Type Description Quantity Date Captured [...]
== END 2024-07-11 13:10 | disposition home or self-care (01) ==
LOC: ANHIMG 13:13
PROVIDERS: PCP Family Medicine; Visit Provider Orthopaedic Surgery
DX: M94.261 Chondromalacia, right knee (principal); M17.11 Unilateral primary osteoarthritis, right knee; M25.561 Pain in right knee; M25.461 Effusion, right knee
CPT/HCPCS: 73564

== ENCOUNTER 2024-07-19 13:30 | Outpatient (CLI) | payer MEDICARE, BC, SELFPAY ==
[2024-07-19 13:47] LABS: Hematocrit 43.6 % (42.0-52.0); Hemoglobin 15.4 g/dL (14.0-18.0); Mean Corpuscular HGB Conc 35.3 g/dl (32-36); Mean Corpuscular Hemoglobin 32.7 pg (26-34); Mean Corpuscular Volume 92.6 fl (80-100); Mean Platelet Volume 9.6 fl (7.4-10.4); Platelet Count Result 211 k/mm3 (150-375); Red Blood Count 4.71 M/mm3 (4.6-6.20)
--- OUTSIDE RECORDS SUMMARY | 2024-07-19 14:18 | XMS_ITS | Clinical Summary ---
Author Organization [facility] Address [address] [place] [address] Phone Care Team Providers Care Lei Maker Name Role Phone Ambrose Watkins MD Primary Care Provider [phone] Liliya Montalvo DRY CELL SEALER Unavailable [phone] Allergies Active Allergy Reactions Criticality Noted [...] Encounters Date Type Department Care Team Description 07/19/2024 Telephone [facility] Hematology [address] [place] [phone] Dia De Anda 07/19/2024 Orders Only [facility] Hematology [address] [place] [address] 6 [place] [address] Dia De Anda Hereditary hemochromatosis (HCC) (Primary Dx) 07/15/2024 Telephone [facility] Hematology [address] [place] [address] 6 [place] [address] Dia De Anda 07/06/2024 2:45 PM UNEMPLOYMENT EXAMINER Infusion [facility] at [address] [place] [address] Hereditary hemochromatosis (HCC) 07/06/2024 2:00 PM UNEMPLOYMENT EXAMINER Lab [facility] at [address] [address] Hereditary hemochromatosis (HCC) 06/15/2024 Orders Only [facility] Hematology [address] [place] [address] 6 [place] [phone] Dia De Anda Hereditary hemochromatosis (HCC) (Primary Dx) 06/13/2024 Telephone [facility] Hematology [address] [place] [address] 6 [place] [phone] Dia De Anda 05/12/2024 Anticoagulation Visit [facility] Hematology [address] [place] [phone] Hazel Hardwick RN 05/03/2024 Orders Only [facility] Hematology [address] [place] [phone] Darling Frank Hereditary hemochromatosis (HCC) (Primary Dx) 04/27/2024 10:45 AM UNEMPLOYMENT EXAMINER Infusion [facility] at [address] [place] [address] Hereditary hemochromatosis (HCC) (Primary Dx) 04/27/2024 10:15 AM UNEMPLOYMENT EXAMINER Lab [facility] at [address] [address] Hereditary hemochromatosis (HCC) 04/27/2024 Telephone [facility] Hematology [address] [place] [phone] Darling Frank 04/27/2024 Orders Only [facility] [address] [facility] [address] [place] [address] Jayne Ag NP from Last 3 Months [...] on file Legal Sex Male 10:28 AM UNEMPLOYMENT EXAMINER Gender Identity Not on file Sexual Orientation Not on file Obstetrics History Last Filed Vital Signs Vital Sign Reading Time Taken Comments Blood Pressure 144/78 07/06/2024 2:13 PM UNEMPLOYMENT EXAMINER Pulse 70 07/06/2024 2:13 PM UNEMPLOYMENT EXAMINER Temperature 36.6 C (97.9 F) 07/06/2024 2:13 PM UNEMPLOYMENT EXAMINER Respiratory Rate 18 07/06/2024 2:13 PM UNEMPLOYMENT EXAMINER Oxygen Saturation 98% 07/06/2024 2:13 PM UNEMPLOYMENT EXAMINER Inhaled Oxygen Concentration - - Weight 70.9 kg (156 lb 4.8 oz) 07/06/2024 2:13 P M UNEMPLOYMENT EXAMINER Height 179.1 cm (5' 10.5 ) 10/19/2023 [...] 2 - PCV) 06/11/2019 06/11/2018 Covid-19 Vaccine (6 - 2023-2 5 season) 2024 04/09/2022, 03/10/2022, 12/16/2021, Additional history exists Influenza Vaccine (#1) 2024 , 04/14/2019, 04/19/2018, Additional history exists DTaP/Tdap/Td Vaccine (2 - Td or Tdap) 07/28/2029 07/28/2019 Procedures Procedure Name Priority Date/Time Associated Diagnosis Comments EGFR Routine 07/06/2024 1:42 PM UNEMPLOYMENT EXAMINER Hereditary hemochromatosis (HCC) DIFFERENTIAL AUTO Routine 07/06/2024 1:4 2 PM UNEMPLOYMENT EXAMINER Hereditary hemochromatosis (HCC) IRON PROFILE W/ IBC Routine 07/06/2024 1 :42 PM UNEMPLOYMENT EXAMINER Hereditary hemochromatosis (HCC) FERRITIN Routine 07/06/2024 1:42 PM UNEMPLOYMENT EXAMINER Hereditary hemochromatosis (HCC) CBC WITH AUTO DIFFERENTIAL Routine 07/06/2024 1:42 PM UNEMPLOYMENT EXAMINER Hereditary hemochromatosis (HCC) COMPREHENSIVE METABOLIC PANEL Routine 07/06/2024 1:42 PM UNEMPLOYMENT EXAMINER Hereditary hemochromatosis (HCC) EGFR Routine 04/27/2024 10:27 AM UNEMPLOYMENT EXAMINER Hereditary hemochromatosis (HCC) DIFFERENTIAL AUTO Routine 04/27/2024 10: 27 AM UNEMPLOYMENT EXAMINER Hereditary hemochromatosis (HCC) CBC WITH AUTO DIFFERENTIAL Routine 04/27/2024 10:27 AM UNEMPLOYMENT EXAMINER Hereditary hemochromatosis (HCC) FERRITIN Routine 04/27/2024 10:27 AM UNEMPLOYMENT EXAMINER Hereditary hemochromatosis (HCC) RETICULOCYTES Routine 04/27/2024 10:27 AM UNEMPLOYMENT EXAMINER Hereditary hemochromatosis (HCC) IRON PROFILE W/ IBC Routine 04/27/2024 1 0:27 AM UNEMPLOYMENT EXAMINER Hereditary hemochromatosis (HCC) COMPREHENSIVE METABOLIC PANEL Routine 04/27/2024 10:27 AM UNEMPLOYMENT EXAMINER Hereditary hemochromatosis (HCC) [id number], TUMOR MARKER Routine 04/27/2024 10:27 AM UNEMPLOYMENT EXAMINER Hereditary hemochromatosis (HCC) from Last 3 Months Results * eGFR (07/06/2024 1:42 PM UNEMPLOYMENT EXAMINER) eGFR 89 >=60 mL/min/1. 73 m2 Comment: Interpretive Data Reference Interval Normal >/= 90 mL/min/1.73m2 Mildly decreased* 60 - 89 mL/min/1.73m2 Mildly to moderately decreased 45 - 59 mL/min/1.73m2 Moderately to severely decreased 30 - 44 mL/min/1.73m2 Severely decreased 15 - 29 mL/min/1.73m2 Kidney Failure < 15 mL/min/1.73m2 *Relative to young adult level Estimated glomerular [...] was last reviewed 2021. Testing performed by: [facility], [address] [place] [address], [place]., [address] Blood 07/06/2024 1:42 PM UNEMPLOYMENT EXAMINER 07/06/2024 1:49 PM UNEMPLOYMENT EXAMINER us Jayne Imani Ancelmo GRACIA LAB BLOOD ORDERABLES Final Result [facility] [address] [facility] Department [place] [address] * Differential, auto (07/06/2024 1:42 PM UNEMPLOYMENT EXAMINER) Neutrophil abs 2.7 1.5 - 6.5 K/cumm Comment:Testing performed by : [address] [address] Imm gran abs 0.0 0.0 - 0.1 K/cumm TISHA Comment:Testing performed by : [address] [address] Lymphocyte abs 1.0 0.8 - 3.3 K/cumm TISHA Comment:Testing performed by : [address] [address] Monocyte abs 0.3 0.2 - 0.8 K/cumm TISHA Comment:Testing performed by : [address] [address] Eosinophil abs 0.0 0.0 - 0.5 K/cumm TISHA Comment:Testing performed by : [address] [address] Basophil abs 0.0 0.0 - 0.1 K/cumm TISHA Comment:Testing performed by : [address] [address] Neutrophil pct 66.0 % TISHA Comment: Interpretive Data Percent cell count reference ranges are not reported, since discordance with absolute values may lead to misinterpretation of CBC data. Current Interpretive Data was last revised on 2017. Testing performed by: [address] [address] Imm gran pct 0.2 % TISHA Comment: Interpretive Data Percent cell count reference ranges are not reported, since discordance with absolute values may lead to misinterpretation of CBC data. Current Interpretive Data was last revised on 2017. Testing performed by: [address] [address] Lymphocyte pct 24.0 % TISHA Comment: Interpretive Data Percent cell count reference ranges are not reported, since discordance with absolute values may lead to misinterpretation of CBC data. Current Interpretive Data was last revised on 2017. Testing performed by: [address] [address] Monocyte pct 8.3 % TISHA Comment: Interpretive Data Percent cell count reference ranges are not reported, since discordance with absolute values may lead to misinterpretation of CBC data. Current Interpretive Data was last revised on 2017. Testing performed by: [address] [address] Eosinophil pct 1.0 % TISHA Comment: Interpretive Data Percent cell count reference ranges are not reported, since discordance with absolute values may lead to misinterpretation of CBC data. Current Interpretive Data was last revised on 2017. Testing performed by: [address] [address] Basophil pct 0.5 % TISHA Comment: Interpretive Data Percent cell count reference ranges are not reported, since discordance with absolute values may lead to misinterpretation of CBC data. Current Interpretive Data was last revised on 2017. Testing performed by: [address] [address] Blood 07/06/2024 1:42 PM UNEMPLOYMENT EXAMINER 07/06/2024 1:49 PM UNEMPLOYMENT EXAMINER Jayne Ag DRY CELL SEALER LAB BLOOD ORDERABLES Final Result [facility] [address] [facility] Department [place] [address] * (ABNORMAL) Iron profile w/ IBC (07/06/2024 1:42 PM UNEMPLOYMENT EXAMINER) Iron 154(H) 50 - 150 mcg/dL Comment:Testing performed by : [address] [address] TIBC 206(L) 250 - 400 mcg/dL TISHA Comment:Testing performed by : [address] [address] Transferrin saturation 75(H) 20 - 50 % TISHA Comment:Testing performed by : [address] [address] Blood 07/06/2024 1:42 PM UNEMPLOYMENT EXAMINER 07/06/2024 4:43 PM UNEMPLOYMENT EXAMINER Jayne Ag DRY CELL SEALER LAB BLOOD ORDERABLES Final Result [facility] [address] [facility] Department [place] [address] * (ABNORMAL) CBC with auto differential (07/06/2024 1:42 PM UNEMPLOYMENT EXAMINER) WBC 4.1 3.8 - 9.9 K/cumm Comment:Testing performed by : [address] [address] Hgb 15.5 13.0 - 17.5 g/dL TISHA Comment:Testing performed by : [address] [address] Hct 42.9 38.9 - 50.3 % TISHA Comment:Testing performed by : [address] [address] Plt 252 150 - 400 K/cumm TISHA Comment:Testing performed by : [address] [address] MPV 9.7 9.1 - 12.3 fL TISHA Comment:Testing performed by : [address] [address] RBC 4.83 4.30 - 5.80 M/cumm TISHA Comment:Testing performed by : [address] [address] MCV 88.8 81.3 - 96.4 fL TISHA Comment:Testing performed by : [address] [address] MCH 32.1 27.1 - 33.3 pg TISHA Comment:Testing performed by : [address] [address] MCHC 36.1(H) 32.3 - 35.7 g/dL TISHA MUNOZ Comment:Testing performed by : [address] [address] RDW CV 12.5 11.1 - 14.9 % TISHA MUNOZ Comment:Testing performed by : [address] [address] RDW SD 40.7 35.7 - 48.1 fL TISHA Comment:Testing performed by : [address] [address] NRBC abs 0.00 0.00 - 0.01 K/cumm TISHA Comment:Testing performed by : [address], [address] Blood 07/06/2024 1:42 PM UNEMPLOYMENT EXAMINER 07/06/2024 1:49 PM UNEMPLOYMENT EXAMINER Jayne Ag DRY CELL SEALER LAB BLOOD ORDERABLES Final Result Performing Organization Address City/[facility] Co de Phone Number [address] [place] [address] * Ferritin (07/06/2024 1:42 PM UNEMPLOYMENT EXAMINER) Pathologist [facility] Ferritin 132 30 - 400 ng/mL Comment:Testing performed by : [address] [address] Blood 07/06/2024 1:42 PM UNEMPLOYMENT EXAMINER 07/06/2024 4:43 PM UNEMPLOYMENT EXAMINER Jayne Ag DRY CELL SEALER LAB BLOOD ORDERABLES Final Result Performing Organization Address [facility] Co de Phone Number [address] [address] * (ABNORMAL) Comprehensive metabolic panel (07/06/2024 1:42 PM UNEMPLOYMENT EXAMINER) Pathologist [facility] Sodium 145 135 - 145 mmol/L Comment:Testing performed by : [address], [address] Potassium, pl 4.2 3.3 - 4.9 mmol/L TISHA Comment:Testing performed by : [address], [place]., [address] Chloride 108 97 - 110 mmol/L TISHA Comment:Testing performed by : [address], [place]., [address] CO2 27 22 - 32 mmol/L TISHA Comment:Testing performed by : [address], [place]., [address] Anion gap 10 2 - 15 mmol/L TISHA Comment:Testing performed by : [address], [place]., [address] BUN 17 6 - 25 mg/dL [facility] Comment:Testing performed by : [address], [place]., [address] Creatinine 0.90 0.80 - 1.30 mg/dL TISHA Comment:Testing performed by : [address] [address] Glucose 115 70 - 199 mg/dL TISHA Comment: Interpretive Data Fasting glucose >/= 126 mg/dl is diagnostic for diabetes. Fasting is defined as no caloric intake [...] classification and Diagnosis of Diabetes Diabetes Care 2021; 46: S19-S40. Current interpretive data was last revised 2022. Testing performed by: [address] [address] Calcium 9.1 8.5 - 10.3 mg/dL [facility] Comment:Testing performed by : [address] [address] Bilirubin, total 0.7 0.1 - 1.2 mg/dL TISHA Comment:Testing performed by : [address], [place]., [address] Protein, pl 6.4(L) 6.5 - 8.5 g/dL TISHA Comment:Testing performed by : [address] [address] Albumin 4.1 3.5 - 5.0 g/dL TISHA MUNOZ Comment:Testing performed by : [address] [address] Alk phos 73 40 - 130 Units/L TISHA MUNOZ Comment:Testing performed by : [address] [address] ALT 8 7 - 55 Units/L TISHA Comment:Testing performed by : [address] [address] AST 14 10 - 50 Units/L TISHA Comment:Testing performed by : [address] [address] Blood 07/06/2024 1:42 PM UNEMPLOYMENT EXAMINER 07/06/2024 1:49 PM UNEMPLOYMENT EXAMINER Jayne Ag NP LAB BLOOD ORDERABLES Final Result [facility] Department [place] [address] * eGFR (04/27/2024 10:27 AM UNEMPLOYMENT EXAMINER) eGFR 70 >=60 mL/min/1. 73 m2 Comment: Interpretive Data Reference Interval Normal >/= 90 mL/min/1.73m2 Mildly decreased* 60 - 89 mL/min/1.73m2 Mildly to moderately decreased 45 - 59 mL/min/1.73m2 Moderately to severely decreased 30 - 44 mL/min/1.73m2 Severely decreased 15 - 29 mL/min/1.73m2 Kidney Failure < 15 mL/min/1.73m2 *Relative to young adult level Estimated glomerular [...] was last reviewed 2021. Testing performed by: [address] [address] Blood 04/27/2024 10:2 7 AM UNEMPLOYMENT EXAMINER 04/27/2024 10:30 AM UNEMPLOYMENT EXAMINER aJyne Diallo Ancelmo DRY CELL SEALER LAB BLOOD ORDERABLES Final Result [facility] [address] [facility] Department [place] [address] * Differential, auto (04/27/2024 10:27 AM UNEMPLOYMENT EXAMINER) Neutrophil abs 2.1 1.5 - 6.5 K/cumm Comment:Testing performed by : [address] [address] Imm gran abs 0.0 0.0 - 0.1 K/cumm TISHA Comment:Testing performed by : [address] [address] Lymphocyte abs 0.9 0.8 - 3.3 K/cumm TISHA Comment:Testing performed by : [address] [address] Monocyte abs 0.4 0.2 - 0.8 K/cumm TISHA Comment:Testing performed by : [address] [address] Eosinophil abs 0.1 0.0 - 0.5 K/cumm TISHA Comment:Testing performed by : [address] [address] Basophil abs 0.0 0.0 - 0.1 K/cumm TISHA Comment:Testing performed by : [address] [address] Neutrophil pct 59.2 % TISHA Comment: Interpretive Data Percent cell count reference ranges are not reported, since discordance with absolute values may lead to misinterpretation of CBC data. Current Interpretive Data was last revised on 2017. Testing performed by: [address] [address] Imm gran pct 0.3 % TISHA Comment: Interpretive Data Percent cell count reference ranges are not reported, since discordance with absolute values may lead to misinterpretation of CBC data. Current Interpretive Data was last revised on 2017. Testing performed by: [address] [address] Lymphocyte pct 26.6 % [facility] Comment: Interpretive Data Percent cell count reference ranges are not reported, since discordance with absolute values may lead to misinterpretation of CBC data. Current Interpretive Data was last revised on 2017. Testing performed by: [address] [address] Monocyte pct 10.8 % [facility] Comment: Interpretive Data Percent cell count reference ranges are not reported, since discordance with absolute values may lead to misinterpretation of CBC data. Current Interpretive Data was last revised on 2017. Testing performed by: [address] [address] Eosinophil pct 2.3 % [facility] Comment: Interpretive Data Percent cell count reference ranges are not reported, since discordance with absolute values may lead to misinterpretation of CBC data. Current Interpretive Data was last revised on 2017. Testing performed by: [address] [address] Basophil pct 0.8 % [facility] Comment: Interpretive Data Percent cell count reference ranges are not reported, since discordance with absolute values may lead to misinterpretation of CBC data. Current Interpretive Data was last revised on 2017. Testing performed by: [address] [address] Blood 04/27/2024 10:2 7 AM UNEMPLOYMENT EXAMINER 04/27/2024 10:30 AM UNEMPLOYMENT EXAMINER us Jayne Ag NP LAB BLOOD ORDERABLES Final Result [facility] [address] [facility] Department of Laboratories [place], [place] [id number] * (ABNORMAL) Iron profile w/ IBC (04/27/2024 10:27 AM UNEMPLOYMENT EXAMINER) Iron 209(H) 50 - 150 mcg/dL Comment:Testing performed by : [address] [address] TIBC <226(L) 250 - 400 mcg/dL T[facility]HA MUNOZ Comment:Testing performed by : [address] [address] Transferrin saturation >92(H) 20 - 50 % TISHA MUNOZ Comment:Testing performed by : [address] [address] Blood 04/27/2024 10:2 7 AM UNEMPLOYMENT EXAMINER 04/27/2024 12:06 PM UNEMPLOYMENT EXAMINER us Jayne Ag DRY CELL SEALER LAB BLOOD ORDERABLES Final Result Performing Organization Address City/State/[facility] Co de Phone Number [facility] Department [place] [address] * (ABNORMAL) CBC with auto differential (04/27/2024 10:27 AM UNEMPLOYMENT EXAMINER) Pathologist [facility] WBC 3.5(L) 3.8 - 9.9 K/cumm Comment:Testing performed by : [address] [address] Hgb 15.7 13.0 - 17.5 g/dL TISHA MUNOZ Comment:Testing performed by : [address] [address] Hct 43.6 38.9 - 50.3 % TISHA MUNOZ Comment:Testing performed by : [address] [address] Plt 227 150 - 400 K/cumm TISHA MUNOZ Comment:Testing performed by : [address] [address] MPV 9.8 9.1 - 12.3 fL TISHA MUNOZ Comment:Testing performed by : [address] [address] RBC 4.82 4.30 - 5.80 M/cumm TISHA MUNOZ Comment:Testing performed by : [address] [address] MCV 90.5 81.3 - 96.4 fL TISHA MUNOZ Comment:Testing performed by : [address] [address] MCH 32.6 27.1 - 33.3 pg TISHA MUNOZ Comment:Testing performed by : [address] [address] MCHC 36.0(H) 32.3 - 35.7 g/dL TISHA Comment:Testing performed by : [address] [address] RDW CV 12.6 11.1 - 14.9 % T[facility]HA Comment:Testing performed by : [address] [address] RDW SD 41.5 35.7 - 48.1 fL TISHA Comment:Testing performed by : [address] [address] NRBC abs 0.00 0.00 - 0.01 K/cumm TISHA Comment:Testing performed by : [address] [address] Blood 04/27/2024 10:2 7 AM UNEMPLOYMENT EXAMINER 04/27/2024 10:30 AM UNEMPLOYMENT EXAMINER Jayne Ag DRY CELL SEALER LAB BLOOD ORDERABLES Final Result [facility] [address] [facility] Department [place] [address] * [id number], Tumor Marker (04/27/2024 10:27 AM UNEMPLOYMENT EXAMINER) alpha Fetoprotein 2.2 0.0 - 8.3 ng/mL Comment: Interpretive Data The Cathy AFP assay procedure was used. Results from different manufacturers or methods may not be comparable. Serial testing should be performed using the same method. 0-1 month. AFP concentrations may reach or exceed 100,000 ng/mL after depending on gestational age and weight. 1-3 months 50 1000 ng/ml 3-6 months 10 500 ng/ml 6-12 months 3.0 100 ng/ml >1 year 0.0 8.3 ng/ml References Jewel Mccrary et al. J. Ped Surg 1978;13:155-156 Mehreen Marcano et al. Clin Chem Lab Med 2018;57:783-797 Kieran Butt et al. Clin Chem 2014;6030-1705. Current interpretive data was last revised 2022. Testing performed by: [address] [address] Blood 04/27/2024 10:2 7 AM UNEMPLOYMENT EXAMINER 04/27/2024 12:06 PM UNEMPLOYMENT EXAMINER Jayne Ag DRY CELL SEALER LAB BLOOD ORDERABLES Final Result Performing Organization Address City/State/[facility] Co de Phone Number [facility] [address] [facility] [place] [address] * Reticulocyte Count (04/27/2024 10:27 AM UNEMPLOYMENT EXAMINER) Retics, absolute 0.048 0.020 - 0.087 M/cumm Comment:Testing performed by : [address] [address] Retics 1.0 0.4 - 2.9 % TISHA Comment:Testing performed by : [address] [address] Reticulocyte Hgb 37.1 30.5 - 38.0 pg TISHA Comment:Testing performed by : [address] [address] Blood 04/27/2024 10:2 7 AM UNEMPLOYMENT EXAMINER 04/27/2024 10:30 AM UNEMPLOYMENT EXAMINER Jayne Ag DRY CELL SEALER LAB BLOOD ORDERABLES Final Result Performing Organization Address City/[facility]/ZIP Co de Phone Number [facility] [address] [facility] [place] [address] * Ferritin (04/27/2024 10:27 AM UNEMPLOYMENT EXAMINER) Ferritin 141 30 - 400 ng/mL Comment:Testing performed by : [address] [address] Blood 04/27/2024 10:2 7 AM UNEMPLOYMENT EXAMINER 04/27/2024 12:06 PM UNEMPLOYMENT EXAMINER Jayne Imani Ancelmo DRY CELL SEALER LAB BLOOD ORDERABLES Final Result [facility] [address] [facility] Department [place] [address] * Comprehensive metabolic panel (04/27/2024 10:27 AM UNEMPLOYMENT EXAMINER) Sodium 143 135 - 145 mmol/L Comment:Testing performed by : [address] [address] Potassium, pl 4.3 3.3 - 4.9 mmol/L TISHA Comment:Testing performed by : [address] [address] Chloride 106 97 - 110 mmol/L TISHA Comment:Testing performed by : [address] [address] CO2 26 22 - 32 mmol/L T[facility]HA Comment:Testing performed by : [address] [address] Anion gap 11 2 - 15 mmol/L T[facility]HA Comment:Testing performed by : [address] [address] BUN 18 6 - 25 mg/dL T[facility]HA Comment:Testing performed by : [address] [address] Creatinine 1.10 0.80 - 1.30 mg/dL T[facility]HA Comment:Testing performed by : [address] [address] Glucose 76 70 - 199 mg/dL TISHA Comment: Interpretive Data Fasting glucose >/= 126 mg/dl is diagnostic for diabetes. Fasting is defined as no caloric intake [...] was last revised 2022. Testing performed by: [address] [address] Calcium 9.4 8.5 - 10.3 mg/dL T[facility]HA Comment:Testing performed by : [address] [address] Bilirubin, total 0.7 0.1 - 1.2 mg/dL T[facility]HA Comment:Testing performed by : [address] [address] Protein, pl 6.5 6.5 - 8.5 g/dL T[facility]HA Comment:Testing performed by : [address] [address] Albumin 4.2 3.5 - 5.0 g/dL T[facility]HA Comment:Testing performed by : [address] [address] Alk phos 74 40 - 130 Units/L T[facility]HA Comment:Testing performed by : [address] [address] ALT 10 7 - 55 Units/L T[facility]HA Comment:Testing performed by : [address] [address] AST 18 10 - 50 Units/L T[facility]HA Comment:Testing performed by : [address] [address] Blood 04/27/2024 10:2 7 AM UNEMPLOYMENT EXAMINER 04/27/2024 10:30 AM UNEMPLOYMENT EXAMINER Jayne Ag NP LAB BLOOD ORDERABLES Final Result [facility] [address] [facility] Department [place] [address] from Last 3 [place] [address] MEDICARE [facility] [employer] MEDICARE [facility] [employer] Care Teams Lei Maker Relationship Specialty Start Date End Date Ambrose Watkins MD PCP - General Family Medicine 05/10/18 Liliya Montalvo, SAMIA [address] [place] [id number] Nurse Practitioner Medical Oncology 10/20/22
--- OUTSIDE RECORDS SUMMARY | 2024-07-19 14:18 | XMS_ITS | Referral Summary ---
Author Organization [facility] Address [address] [place] [address] Phone Care Team Providers Care Capacity Planning Analyst Name Role Phone Ambrose Watkins MD Primary Care Provider [phone] Liliya Montalvo GLOBAL MARKETING SPECIALIST Unavailable [phone] Encounters Date Type Department Care Team Description 07/19/2024 Telephone [facility] Hematology [facility] [address] [place] [address] Dia De Anda 07/19/2024 Orders Only [facility] Hematology [facility] [address] [address] Dia De Anda Hereditary hemochromatosis (HCC) (Primary Dx) 07/15/2024 Telephone [facility] Hematology [facility] [address] [address] [phone] Dia De Andasia 07/06/2024 2:45 PM EXECUTIVE ADMIN Infusion [facility] at [address] [place] [id number] Hereditary hemochromatosis (HCC) 07/06/2024 2:00 PM EXECUTIVE ADMIN Lab [facility] at [address] [address] Hereditary hemochromatosis (HCC) 06/15/2024 Orders Only [facility] Hematology [facility] [address] [place] [id number] Dia De Anda Hereditary hemochromatosis (HCC) (Primary Dx) 06/13/2024 Telephone [facility] Hematology [address] [facility] Floor 6 [place] [address] Dia De Anda 05/12/2024 Anticoagulation Visit [facility] Hematology [address] [facility] Floor 6 [place] [address] Hazel Hardwick RN 05/03/2024 Orders Only [facility] Hematology [address] [facility] Floor 6 [place] [address] Darling Frank Hereditary hemochromatosis (HCC) (Primary Dx) 04/27/2024 Telephone [facility] Hematology [facility] Floor 6 [place] [address] Darling Frank 04/27/2024 10:15 AM EXECUTIVE ADMIN Lab [facility] at [address] [address] Hereditary hemochromatosis (HCC) 04/27/2024 Orders Only [facility] Hematology [address] [place] [address] Jayne Ag NP 04/27/2024 10:45 AM EXECUTIVE ADMIN Infusion [facility] at [address] [place] [address] Hereditary hemochromatosis (HCC) (Primary Dx) from Last [...] on file Legal Sex Male 10:28 AM EXECUTIVE ADMIN Gender Identity Not on file Sexual Orientation Not on file Last Filed Vital Signs Vital Sign Reading Time Taken Comments Blood Pressure 144/78 07/06/2024 2:13 PM EXECUTIVE ADMIN Pulse 70 07/06/2024 2:13 PM EXECUTIVE ADMIN Temperature 36.6 C (97.9 F) 07/06/2024 2:13 PM EXECUTIVE ADMIN Respiratory Rate 18 07/06/2024 2:13 PM EXECUTIVE ADMIN Oxygen Saturation 98% 07/06/2024 2:13 PM EXECUTIVE ADMIN Inhaled Oxygen Concentration - - Weight 70.9 kg (156 lb 4.8 oz) 07/06/2024 2:13 P M EXECUTIVE ADMIN Height 179.1 cm (5' 10.5 ) 10/19/2023 1:42 PM CD T Body Mass Index 22.11 10/19/2023 1:42 PM CDT Plan of Treatment Not on file Procedures Procedure Name Priority Date/Time Associated Diagnosis Comments EGFR Routine 07/06/2024 1:42 PM EXECUTIVE ADMIN Hereditary hemochromatosis (HCC) DIFFERENTIAL AUTO Routine 07/06/2024 1:4 2 PM EXECUTIVE ADMIN Hereditary hemochromatosis (HCC) IRON PROFILE W/ IBC Routine 07/06/2024 1 :42 PM EXECUTIVE ADMIN Hereditary hemochromatosis (HCC) FERRITIN Routine 07/06/2024 1:42 PM EXECUTIVE ADMIN Hereditary hemochromatosis (HCC) CBC WITH AUTO DIFFERENTIAL Routine 07/06/2024 1:42 PM EXECUTIVE ADMIN Hereditary hemochromatosis (HCC) COMPREHENSIVE METABOLIC PANEL Routine 07/06/2024 1:42 PM EXECUTIVE ADMIN Hereditary hemochromatosis (HCC) EGFR Routine 04/27/2024 10:27 AM EXECUTIVE ADMIN Hereditary hemochromatosis (HCC) DIFFERENTIAL AUTO Routine 04/27/2024 10: 27 AM EXECUTIVE ADMIN Hereditary hemochromatosis (HCC) CBC WITH AUTO DIFFERENTIAL Routine 04/27/2024 10:27 AM EXECUTIVE ADMIN Hereditary hemochromatosis (HCC) FERRITIN Routine 04/27/2024 10:27 AM EXECUTIVE ADMIN Hereditary hemochromatosis (HCC) RETICULOCYTES Routine 04/27/2024 10:27 AM EXECUTIVE ADMIN Hereditary hemochromatosis (HCC) IRON PROFILE W/ IBC Routine 04/27/2024 1 0:27 AM EXECUTIVE ADMIN Hereditary hemochromatosis (HCC) COMPREHENSIVE METABOLIC PANEL Routine 04/27/2024 10:27 AM EXECUTIVE ADMIN Hereditary hemochromatosis (HCC) [id number], TUMOR MARKER Routine 04/27/2024 10:27 AM EXECUTIVE ADMIN Hereditary hemochromatosis (HCC) from Last 3 Months Results * eGFR (07/06/2024 1:42 PM EXECUTIVE ADMIN) eGFR 89 >=60 mL/min/1. 73 m2 Comment: [...] was last reviewed 2021. Testing performed by: [address] [address] Blood 07/06/2024 1:42 PM EXECUTIVE ADMIN 07/06/2024 1:49 PM EXECUTIVE ADMIN us Jayne Ag GLOBAL MARKETING SPECIALIST LAB BLOOD ORDERABLES Final Result TISHA [address] [facility] Department [place] [address] * Differential, auto (07/06/2024 1:42 PM EXECUTIVE ADMIN) Neutrophil abs 2.7 1.5 - 6.5 K/cumm Comment:Testing performed by : [address] [address] Imm gran abs 0.0 0.0 - 0.1 K/cumm TISHA Comment:Testing performed by : [address] [address] Lymphocyte abs 1.0 0.8 - 3.3 K/cumm TISHA Comment:Testing performed by : [address] [address] Monocyte abs 0.3 0.2 - 0.8 K/cumm TISHA Comment:Testing performed by : [address] [place]., [address] Eosinophil abs 0.0 0.0 - 0.5 K/cumm [facility] Comment:Testing performed by : [address] [address] Basophil abs 0.0 0.0 - 0.1 K/cumm [facility] Comment:Testing performed by : [address] [address] Neutrophil pct 66.0 % [facility] Comment: Interpretive Data Percent cell count reference ranges are not reported, since discordance with absolute values may lead to misinterpretation of CBC data. Current Interpretive Data was last revised on 2017. Testing performed by: [address] [address] Imm gran pct 0.2 % [facility] Comment: Interpretive Data Percent cell count reference ranges are not reported, since discordance with absolute values may lead to misinterpretation of CBC data. Current Interpretive Data was last revised on 2017. Testing performed by: [address] [address] Lymphocyte pct 24.0 % [facility] Comment: Interpretive Data Percent cell count reference ranges are not reported, since discordance with absolute values may lead to misinterpretation of CBC data. Current Interpretive Data was last revised on 2017. Testing performed by: [address] [address] Monocyte pct 8.3 % [facility] Comment: Interpretive Data Percent cell count reference ranges are not reported, since discordance with absolute values may lead to misinterpretation of CBC data. Current Interpretive Data was last revised on 2017. Testing performed by: [address] [address] Eosinophil pct 1.0 % [facility] Comment: Interpretive Data Percent cell count reference ranges are not reported, since discordance with absolute values may lead to misinterpretation of CBC data. Current Interpretive Data was last revised on 2017. Testing performed by: [address] [address] Basophil pct 0.5 % [facility] Comment: Interpretive Data Percent cell count reference ranges are not reported, since discordance with absolute values may lead to misinterpretation of CBC data. Current Interpretive Data was last revised on 2017. Testing performed by: [address] [address] Blood 07/06/2024 1:42 PM EXECUTIVE ADMIN 07/06/2024 1:49 PM EXECUTIVE ADMIN Jayne Ag GLOBAL MARKETING SPECIALIST LAB BLOOD ORDERABLES Final Result Performing Organization Address [facility] de Phone Number [address] [place] [address] * (ABNORMAL) Iron profile w/ IBC (07/06/2024 1:42 PM EXECUTIVE ADMIN) Pathologist [facility] Iron 154(H) 50 - 150 mcg/dL Comment:Testing performed by : [address] [address] TIBC 206(L) 250 - 400 mcg/dL TISHA Comment:Testing performed by : [address] [address] Transferrin saturation 75(H) 20 - 50 % TISHA Comment:Testing performed by : [address] [address] Blood 07/06/2024 1:42 PM EXECUTIVE ADMIN 07/06/2024 4:43 PM EXECUTIVE ADMIN Jayne Ag LAB BLOOD ORDERABLES Final Result Performing Organization Address [facility] de Phone Number [address] [place] [address] * (ABNORMAL) CBC with auto differential (07/06/2024 1:42 PM EXECUTIVE ADMIN) [facility] WBC 4.1 3.8 - 9.9 K/cumm Comment:Testing performed by : [address] [address] Hgb 15.5 13.0 - 17.5 g/dL TISHA Comment:Testing performed by : [address] [address] Hct 42.9 38.9 - 50.3 % TISHA Comment:Testing performed by : [address], [address] Plt 252 150 - 400 K/cumm TISHA Comment:Testing performed by : [address], [address] MPV 9.7 9.1 - 12.3 fL TISHA Comment:Testing performed by : [address], [address] RBC 4.83 4.30 - 5.80 M/cumm TISHA Comment:Testing performed by : [address], [address] MCV 88.8 81.3 - 96.4 fL TISHA Comment:Testing performed by : [address], [address] MCH 32.1 27.1 - 33.3 pg TISHA Comment:Testing performed by : [address], [address] MCHC 36.1(H) 32.3 - 35.7 g/dL TISHA Comment:Testing performed by : [address], [address] RDW CV 12.5 11.1 - 14.9 % TISHA Comment:Testing performed by : [address], [address] RDW SD 40.7 35.7 - 48.1 fL TISHA Comment:Testing performed by : [address], [address] NRBC abs 0.00 0.00 - 0.01 K/cumm TISHA Comment:Testing performed by : [address], [address] Blood 07/06/2024 1:42 PM EXECUTIVE ADMIN 07/06/2024 1:49 PM EXECUTIVE ADMIN Jayne Ag NP LAB BLOOD ORDERABLES Final Result TISHA [address] [facility] Department [place] [address] * Ferritin (07/06/2024 1:42 PM EXECUTIVE ADMIN) Pathologist [facility] Ferritin 132 30 - 400 ng/mL Comment:Testing performed by : [address] [address] Blood 07/06/2024 1:42 PM EXECUTIVE ADMIN 07/06/2024 4:43 PM EXECUTIVE ADMIN Jayne Ag GLOBAL MARKETING SPECIALIST LAB BLOOD ORDERABLES Final Result TISHA [address] [facility] [place] [address] * (ABNORMAL) Comprehensive metabolic panel (07/06/2024 1:42 PM EXECUTIVE ADMIN) Pathologist [facility] Sodium 145 135 - 145 mmol/L Comment:Testing performed by : [address] [address] Potassium, pl 4.2 3.3 - 4.9 mmol/L TISHA Comment:Testing performed by : [address] [address] Chloride 108 97 - 110 mmol/L TISHA Comment:Testing performed by : [address] [address] CO2 27 22 - 32 mmol/L TISHA Comment:Testing performed by : [address] [address] Anion gap 10 2 - 15 mmol/L TISHA Comment:Testing performed by : [address] [address] BUN 17 6 - 25 mg/dL TISHA Comment:Testing performed by : [address] [address] Creatinine 0.90 0.80 - 1.30 mg/dL TISHA Comment:Testing performed by : [address] [address] Glucose 115 70 - 199 mg/dL TISHA [...] was last revised 2022. Testing performed by: [address] [address] Calcium 9.1 8.5 - 10.3 mg/dL TISHA Comment:Testing performed by : [address] [address] Bilirubin, total 0.7 0.1 - 1.2 mg/dL TISHA Comment:Testing performed by : [address] [address] Protein, pl 6.4(L) 6.5 - 8.5 g/dL TISHA Comment:Testing performed by : [address] [address] Albumin 4.1 3.5 - 5.0 g/dL TISHA Comment:Testing performed by : [address] [address] Alk phos 73 40 - 130 Units/L TISHA Comment:Testing performed by : [address] [address] ALT 8 7 - 55 Units/L TISHA Comment:Testing performed by : [address] [address] AST 14 10 - 50 Units/L TISHA Comment:Testing performed by : [address] [address] Blood 07/06/2024 1:42 PM EXECUTIVE ADMIN 07/06/2024 1:49 PM EXECUTIVE ADMIN Jayne Ag GLOBAL MARKETING SPECIALIST LAB BLOOD ORDERABLES Final Result TISHA [facility] Department [place] [address] * eGFR (04/27/2024 10:27 AM EXECUTIVE ADMIN) eGFR 70 >=60 mL/min/1. 73 m2 Comment: [...] was last reviewed 2021. Testing performed by: [address] [address] Blood 04/27/2024 10:2 7 AM EXECUTIVE ADMIN 04/27/2024 10:30 AM EXECUTIVE ADMIN Jayne Ag NP LAB BLOOD ORDERABLES Final Result TISHA [address] [facility] Department [place] [address] * Differential, auto (04/27/2024 10:27 AM EXECUTIVE ADMIN) Neutrophil abs 2.1 1.5 - 6.5 K/cumm Comment:Testing performed by : [address] [address] Imm gran abs 0.0 0.0 - 0.1 K/cumm TISHA Comment:Testing performed by : [address] [address] Lymphocyte abs 0.9 0.8 - 3.3 K/cumm TISHA Comment:Testing performed by : [address] [address] Monocyte abs 0.4 0.2 - 0.8 K/cumm TISHA Comment:Testing performed by : [address], [place]., [address] Eosinophil abs 0.1 0.0 - 0.5 K/cumm [facility] Comment:Testing performed by : [address] [address] Basophil abs 0.0 0.0 - 0.1 K/cumm [facility] Comment:Testing performed by : [address] [address] Neutrophil pct 59.2 % [facility] Comment: Interpretive Data Percent cell count reference ranges are not reported, since discordance with absolute values may lead to misinterpretation of CBC data. Current Interpretive Data was last revised on 2017. Testing performed by: [address] [address] Imm gran pct 0.3 % [facility] Comment: Interpretive Data Percent cell count reference ranges are not reported, since discordance with absolute values may lead to misinterpretation of CBC data. Current Interpretive Data was last revised on 2017. Testing performed by: [address] [address] Lymphocyte pct 26.6 % [facility] Comment: Interpretive Data Percent cell count reference ranges are not reported, since discordance with absolute values may lead to misinterpretation of CBC data. Current Interpretive Data was last revised on 2017. Testing performed by: [address] [address] Monocyte pct 10.8 % [facility] Comment: Interpretive Data Percent cell count reference ranges are not reported, since discordance with absolute values may lead to misinterpretation of CBC data. Current Interpretive Data was last revised on 2017. Testing performed by: [address] [address] Eosinophil pct 2.3 % [facility] Comment: Interpretive Data Percent cell count reference ranges are not reported, since discordance with absolute values may lead to misinterpretation of CBC data. Current Interpretive Data was last revised on 2017. Testing performed by: [address] [address] Basophil pct 0.8 % TISHA MUNOZ Comment: Interpretive Data Percent cell count reference ranges are not reported, since discordance with absolute values may lead to misinterpretation of CBC data. Current Interpretive Data was last revised on 2017. Testing performed by: [address] [address] Blood 04/27/2024 10:2 7 AM EXECUTIVE ADMIN 04/27/2024 10:30 AM EXECUTIVE ADMIN Jayne Ag LAB BLOOD ORDERABLES Final Result Performing Organization Address [facility] de Phone Number [address] [employer] [place] [address] * (ABNORMAL) Iron profile w/ IBC (04/27/2024 10:27 AM EXECUTIVE ADMIN) Iron 209(H) 50 - 150 mcg/dL Comment:Testing performed by : [address] [address] TIBC <226(L) 250 - 400 mcg/dL TISHA MUNOZ Comment:Testing performed by : [address] [address] Transferrin saturation >92(H) 20 - 50 % TISHA MUNOZ Comment:Testing performed by : [address] [address] Blood 04/27/2024 10:2 7 AM EXECUTIVE ADMIN 04/27/2024 12:06 PM EXECUTIVE ADMIN Jayne Ag GLOBAL MARKETING SPECIALIST LAB BLOOD ORDERABLES Final Result Performing Organization Address [facility] de Phone Number [address] [employer] [place] [address] * (ABNORMAL) CBC with auto differential (04/27/2024 10:27 AM EXECUTIVE ADMIN) WBC 3.5(L) 3.8 - 9.9 K/cumm Comment:Testing performed by : [address], [address] Hgb 15.7 13.0 - 17.5 g/dL TISHA Comment:Testing performed by : [address] [address] Hct 43.6 38.9 - 50.3 % TISHA Comment:Testing performed by : [address], [address] Plt 227 150 - 400 K/cumm TISHA Comment:Testing performed by : [address], [address] MPV 9.8 9.1 - 12.3 fL TISHA Comment:Testing performed by : [address], [address] RBC 4.82 4.30 - 5.80 M/cumm TISHA Comment:Testing performed by : [address], [address] MCV 90.5 81.3 - 96.4 fL TISHA Comment:Testing performed by : [address], [address] MCH 32.6 27.1 - 33.3 pg TISHA Comment:Testing performed by : [address], [address] MCHC 36.0(H) 32.3 - 35.7 g/dL TISHA Comment:Testing performed by : [address], [address] RDW CV 12.6 11.1 - 14.9 % TISHA Comment:Testing performed by : [address], [address] RDW SD 41.5 35.7 - 48.1 fL TISHA Comment:Testing performed by : [address] [address] NRBC abs 0.00 0.00 - 0.01 K/cumm TISHA Comment:Testing performed by : [address], [address] Blood 04/27/2024 10:2 7 AM EXECUTIVE ADMIN 04/27/2024 10:30 AM EXECUTIVE ADMIN Jayne Ag GLOBAL MARKETING SPECIALIST LAB BLOOD ORDERABLES Final Result Performing Organization Address [facility] de Phone Number TISHA [address] [address] * [id number], Tumor Marker (04/27/2024 10:27 AM EXECUTIVE ADMIN) alpha Fetoprotein 2.2 0.0 - 8.3 ng/mL [...] >1 year 0.0 8.3 ng/ml References Jewel Y. et al. J. Ped Surg 1978;13:155-156 Mehreen S. et al. Clin Chem Lab Med 2018;57:783-797 Kieran Butt et al. Clin Chem 2014;4749-4167. Current interpretive data was last revised 2022. Testing performed by: [address] [address] Blood 04/27/2024 10:2 7 AM EXECUTIVE ADMIN 04/27/2024 12:06 PM EXECUTIVE ADMIN Jayne Ag NP LAB BLOOD ORDERABLES Final Result Performing Organization Address [facility] Co de Phone Number TISHA [address] [employer] [place] [address] * Reticulocyte Count (04/27/2024 10:27 AM EXECUTIVE ADMIN) Pathologist [facility] Retics, absolute 0.048 0.020 - 0.087 M/cumm Comment:Testing performed by : [address] [address] Retics 1.0 0.4 - 2.9 % TISHA MUNOZ Comment:Testing performed by : [address] [address] Reticulocyte Hgb 37.1 30.5 - 38.0 pg TISHA MUNOZ Comment:Testing performed by : [address] [address] Blood 04/27/2024 10:2 7 AM EXECUTIVE ADMIN 04/27/2024 10:30 AM EXECUTIVE ADMIN Jayne Ag GLOBAL MARKETING SPECIALIST LAB BLOOD ORDERABLES Final Result Performing Organization Address [facility] Co de Phone Number TISHA [address] [employer] [place] [address] * Ferritin (04/27/2024 10:27 AM EXECUTIVE ADMIN) Ferritin 141 30 - 400 ng/mL Comment:Testing performed by : [address] [address] Blood 04/27/2024 10:2 7 AM EXECUTIVE ADMIN 04/27/2024 12:06 PM EXECUTIVE ADMIN Jayne Ag GLOBAL MARKETING SPECIALIST LAB BLOOD ORDERABLES Final Result Performing Organization Address [facility] Co de Phone Number [address] [address] * Comprehensive metabolic panel (04/27/2024 10:27 AM EXECUTIVE ADMIN) Sodium 143 135 - 145 mmol/L Comment:Testing performed by : [address] [address] Potassium, pl 4.3 3.3 - 4.9 mmol/L TISHA MUNOZ Comment:Testing performed by : [address] [address] Chloride 106 97 - 110 mmol/L TISHA MUNOZ Comment:Testing performed by : [address] [address] CO2 26 22 - 32 mmol/L TISHA Comment:Testing performed by : [address] [address] Anion gap 11 2 - 15 mmol/L TISHA Comment:Testing performed by : [address], [place]., [address] BUN 18 6 - 25 mg/dL TISHA Comment:Testing performed by : [address], [place]., [address] Creatinine 1.10 0.80 - 1.30 mg/dL TISHA Comment:Testing performed by : [address], [place]., [address] Glucose 76 70 - 199 mg/dL TISHA [...] was last revised 2022. Testing performed by: [address] [address] Calcium 9.4 8.5 - 10.3 mg/dL TISHA Comment:Testing performed by : [address] [address] Bilirubin, total 0.7 0.1 - 1.2 mg/dL TISHA Comment:Testing performed by : [address] [address] Protein, pl 6.5 6.5 - 8.5 g/dL TISHA Comment:Testing performed by : [address] [address] Albumin 4.2 3.5 - 5.0 g/dL TISHA Comment:Testing performed by : [address] [address] Alk phos 74 40 - 130 Units/L TISHA MUNOZ Comment:Testing performed by : [facility], [address] [place] [address]., [address] ALT 10 7 - 55 Units/L TISHA MUNOZ Comment:Testing performed by : [address] [address] AST 18 10 - 50 Units/L TISHA MUNOZ Comment:Testing performed by : [facility], [address] [place] [address]., [address] Blood 04/27/2024 10:2 7 AM EXECUTIVE ADMIN 04/27/2024 10:30 AM EXECUTIVE ADMIN us Jayne Ag NP LAB BLOOD ORDERABLES Final Result Performing Organization Address City/State/[facility] Co de Phone Number TISHA MUNOZ [address] [facility] Department [place] [address] from Last 3 Months Insurance MEDICARE [facility] MEDICARE [facility] Care Teams Capacity Planning Analyst Relationship Specialty Start Date End Date Ambrose Watkins MD PCP - General Family Medicine 05/10/18 Liliya Montalvo NP [address] [place] [address] Nurse Practitioner Medical Oncology 10/20/22
--- OUTSIDE RECORDS SUMMARY | 2024-07-19 14:18 | XMS_ITS | Patient Health Summary ---
Author Organization [facility] Address [address] [facility] [place] [address] Care Team Providers Care Video News Editor Name Role Phone Ambrose Watkins MD Primary Care Provider [phone] Note [address] [facility],non-owned Affiliates and Associated Physician Practices is amultiple site organization consisting of ambulatory clinics and hospital sitesin [place], [place], [place] and [place]. This disclosure is being madepursuant to the Care Everywhere program and may not contain all information available regarding this patient. Last updated 18.[facility] [employer] Allergies No known active allergies Active Problems [...] Sexual Orientation Not on file Care Teams Video News Editor Relationship Specialty Start Date End Date Ambrose Watkins MD [address] [place] [address] PCP - General Family Medicine 04/08/16
--- OUTSIDE RECORDS SUMMARY | 2024-07-19 14:18 | XMS_ITS | Continuity of Care Document ---
Author Organization [facility] Address [address] [place] [address] [place] [address] Phone Care Team Providers Care Locks Inspector Name Role Phone Vinay Paulino DO Unavailable Unavailable Advance Directives Directive Yes / No Effective Date File Name No Information Encounters Encounter Description Practice Location Reason(s) For Visit Diagnoses Date Provider Providers Copied on Encounter [facility], [id number] [place] [address] [address], [place], [place], [id number], [place] tel:[phone] [facility] No Information [place]. [address] [facility], [place], [address], [place]. tel: [phone] Family History Family Member Type Diagnosis Age At Onset No Information Payers Payer name Insurance type Covered alliance party ID Authoriza tion(s) [facility] [id number] Social History Type Description Quantity Date Captured [...]
--- OUTSIDE RECORDS SUMMARY | 2024-07-19 14:18 | XMS_ITS | Encounter Summary ---
Author Organization [facility] Address [address] [place] [address] Phone Care Team Providers Care Morale Officer Name Role Phone Ambrose Watkins MD Primary Care Provider [phone] Liliya Montalvo FINAL INSPECTOR AND TESTER Unavailable [phone] Encounter Details Date Type Department Care Team (Late st Contact Info) Description 07/19/2024 Orders Only [facility] Hematology [address] [facility] Floor 6 [place] [phone] Dia De Anda Hereditary hemochromatosis (HCC) (Primary Dx) Social History Tobacco Use Types Packs/Day Years [...] on file Legal Sex Male 10:28 AM EXERCISE PHYSIOLOGIST Gender Identity Not on file Sexual Orientation Not on file documented as of this encounter Plan of Treatment Not on file documented as of this encounter Visit Diagnoses Diagnosis Hereditary hemochromatosis (HCC)- Primary Hereditary hemochromatosis documented in this encounter Orders Appointment Requests Count Last Ordered Date Fi rst Ordered Date ONCBCN THERAPEUTIC PHLEBOTOM Y APPOINTMENT REQUEST 1 07/19/2024 documented in this encounter Care Teams Morale Officer Relationship Specialty Start Date End Date Ambrose Watkins MD PCP - General Family Medicine 05/10/18 Liliya Montalvo NP [address] [place] [address] Nurse Practitioner Medical Oncology 10/20/22 documented as of this encounter
--- OUTSIDE RECORDS SUMMARY | 2024-07-19 14:18 | XMS_ITS | Referral Summary ---
Author Organization [facility] Address [address] [place] [address] Care Team Providers Care Office Support Associate Name Role Phone Ambrose Watkins MD Primary Care Provider [phone] Source Comments [facility],non-owned Affiliates and Associated Physician Practices is amultiple site organization consisting of ambulatory clinics and hospital sitesin [place], [place], [place] and [place]. This disclosure is being madepursuant to the Care Everywhere program and may not contain all information available regarding this patient. Last updated 18.[employer] [facility] Allergies No known active allergies Active Problems [...] of Treatment Not on file Care Teams Office Support Associate Relationship Specialty Start Date End Date Ambrose Watkins MD [address] [place] [address] PCP - General Family Medicine 04/08/16
--- OUTSIDE RECORDS SUMMARY | 2024-07-19 14:18 | XMS_ITS | Clinical Summary ---
Author Organization [email or web address] Address [address] [place] [address] Care Team Providers Care Setter Machine Name Role Phone Ambrose Watkins MD Primary Care Provider [phone] Source Comments [facility] [email or web address],non-owned Affiliates and Associated Physician Practices is amultiple site organization consisting of ambulatory clinics and hospital sitesin [place], [place], [place] and [place]. This disclosure is being madepursuant to the Care Everywhere program and may not contain all information available regarding this patient. Last updated 18.[email or web address] Allergies No known active allergies Active Problems [...] SCREENING 1950 LIPID TESTING 1950 MEDICARE AWV 12 MONTHS 1950 HEPATITIS C SCREENING 10/12/1966 [...] age to complete this topic Care Teams Setter Machine Relationship Specialty Start Date End Date Ambrose Watkins MD [address] [place] [address] PCP - General Family Medicine 04/08/16
--- OUTSIDE RECORDS SUMMARY | 2024-07-19 14:18 | XMS_ITS | Encounter Summary ---
Author Organization [facility] Address [address] [place] [address] Phone Care Team Providers Care Television Cable Installer Name Role Phone Ambrose Watkins MD Primary Care Provider [phone] Liliya Montalvo HISTOPATHOLOGY TECHNICIAN Unavailable [phone] Encounter Details Date Type Department Care Team (Late st Contact Info) Description 07/19/2024 Telephone [place] [id number] [facility] Floor 6 [place] [address] Dia De Anda Social History Tobacco Use Types Packs/Day Years [...] on file Legal Sex Male 10:28 AM ECHO TECHNICIAN Gender Identity Not on file Sexual Orientation Not on file documented as of this encounter Miscellaneous Notes * Telephone Encounter - Dia De Anda - 07/19/2024 1:30 PM CST Pt called schedulers and was put on for 08/02 ----- Message from Jayne Ag NP sent at 07/15/2024 2:09 PM ECHO TECHNICIAN ----- Can we have him go for another PHL at the end of Jul with labs and then he is already scheduled forappmt and PHL in August. ----- Message ----- From: Interface, Lab Results In Sent: 07/06/2024 1:51 PM ECHO TECHNICIAN To: Jayne Ag NP TECHNICIAN TECHNICIAN documented in this encounter Plan of Treatment Not on file documented as of this encounter Visit Diagnoses Not on filedocumented in this encounter Care Teams Television Cable Installer Relationship Specialty Start Date End Date Ambrose Watkins MD PCP - General Family Medicine 05/10/18 Liliya Montalvo NP [address] [place] [address] Nurse Practitioner Medical Oncology 10/20/22 documented as of this encounter
== END 2024-07-19 13:31 | disposition home or self-care (01) ==
PROVIDERS: Visit Provider Nurse Practitioner Family
DX: D72.9 Disorder of white blood cells, unspecified (principal); E78.5 Hyperlipidemia, unspecified
CPT/HCPCS: 36415; 85027

== ENCOUNTER 2024-07-30 08:44 | Outpatient (CLI) | payer MEDICARE, BC, SELFPAY ==
--- NOTE | ~2024-07-30 | XR_ITS ---
EXAMINATION: XR elbow LT min 3V DATE: 07/30/2024 09:52 INDICATION: Left elbow pain and swelling post fall TECHNIQUE: Anteroposterior, two oblique and lateral views of the left elbow were obtained. COMPARISON: None. FINDINGS: Alignment is normal. No fracture or joint effusion. Mild osteoarthritis at the left elbow.. Prominent soft tissue swelling posterior to the olecranon. IMPRESSION: 1. Mild osteoarthritis at the left elbow with no joint effusion or acute osseous abnormality. Reviewed, dictated and finalized at location A. CREW FOREMAN IMPRESSION: 1. Mild osteoarthritis at the left elbow with no joint effusion or acute osseou s abnormality.
--- NOTE | ~2024-07-30 | MR_ITS ---
EXAMINATION: MR shoulder LT wo con DATE: 07/30/2024 09:41 INDICATION: Complete rotator cuff tear or rupture of left shoulder. TECHNIQUE: Magnetic resonance imaging (MRI) of the left shoulder was performed without intravenous co ntrast. Sequences included axial PD-weighted FS FSE, coronal oblique PD-weighted FS FSE and T2-weight ed FS FSE, and sagittal oblique T2-weighted FS FSE and T1-weighted FSE. COMPARISON: Left shoulder radiographs 05/06/2024 FINDINGS: Coracoacromial arch: The acromion undersurface is flat in morphology (type I). There is moderate acromioclavicular joint o steoarthritis. There is mild subacromial/subdeltoid bursitis. Rotator cuff: There is a full-thickness tear of supraspinatus and infraspinatus tendons measuring 11 mm anteroposte rior by 8 mm proximal to distal. Teres minor tendon is normal. There is a full-thickness tear of subs capularis tendon. There is no asymmetric fatty atrophy of the rotator cuff muscle bellies. Biceps tendon and glenoid labrum: There is a partial tear of biceps tendon. The majority of the tendon is medially displaced from the b icipital groove. There is degenerative tearing of the glenoid labrum. Fluid: There is a moderate-sized bilateral joint effusion. Bones/cartilage: There is shallow partial-thickness cartilage loss of glenoid and humeral head. IMPRESSION: 1. Full-thickness rotator cuff tear. 2. Partial tear of biceps tendon, the majority of which is medially displaced from the bicipital groo ve. 3. Mild glenohumeral joint chondrosis. 4. Moderate acromioclavicular joint osteoarthritis. 5. Moderate-sized glenohumeral joint effusion and mild subacromial/subdeltoid bursitis. Reviewed, dictated and finalized at location A. LITY REHAB DIRECTOR IMPRESSION: 1. Full-thickness rotator cuff tear. 2. Partial tear of biceps tendon, the majority of which is medially displaced f rom the bicipital groove. 3. Mild glenohumeral joint chondrosis. 4. Moderate acromioclavicular joint osteoarthritis. 5. Moderate-sized glenohumeral joint effusion and mild subacromial/subdeltoid b ursitis.
--- OUTSIDE RECORDS SUMMARY | 2024-07-30 08:53 | XMS_ITS | Patient Health Summary ---
Author Organization [facility] Address [address] [facility] [place] [address] Care Team Providers Care Collating Machine Operator Name Role Phone Ambrose Watkins MD Primary Care Provider [phone] Note from [facility],non-owned Affiliates and Associated Physician Practices is amultiple site organization consisting of ambulatory clinics and hospital sitesin [place], [place], [place] and [place]. This disclosure is being madepursuant to the Care Everywhere program and may not contain all information available regarding this patient. Last updated 18.[facility] [employer] Allergies No known active allergies Active Problems [...] Sexual Orientation Not on file Care Teams Collating Machine Operator Relationship Specialty Start Date End Date Ambrose Watkins MD [address] [place] [address] PCP - General Family Medicine 04/08/16
--- OUTSIDE RECORDS SUMMARY | 2024-07-30 08:53 | XMS_ITS | Clinical Summary ---
Author Organization [facility] Address [address] [place] [address] Phone Care Team Providers Care Maintenance Worker Swimming Pool Name Role Phone Ambrose Watkins MD Primary Care Provider [phone] Liliya Montalvo TIPPLE SUPERVISOR Unavailable [phone] Allergies Active Allergy Reactions Criticality Noted [...] Type Department Care Team Description 07/19/2024 Telephone [facility] Hematology [address] [place] [phone] Dia De Anda 07/19/2024 Orders Only [facility] Hematology [address] [place] [address] [address] [place] [address] Dia De Anda Hereditary hemochromatosis (HCC) (Primary Dx) 07/15/2024 Telephone [facility] Hematology [address] [place] [address] 6 [place] [address] Dia De Anda 07/06/2024 2:45 PM ACTUARY CLERK Infusion [facility] at [address] [place] [phone] Hereditary hemochromatosis (HCC) 07/06/2024 2:00 PM ACTUARY CLERK Lab [facility] at [facility] [address] [place] [address] Hereditary hemochromatosis (HCC) 06/15/2024 Orders Only [facility] Hematology [facility] [address] [place] [phone] Dia De Anda Hereditary hemochromatosis (HCC) (Primary Dx) 06/13/2024 Telephone [facility] Hematology [address] [place] [address] 6 [place] [phone] Dia De Anda 05/12/2024 Anticoagulation Visit [facility] Hematology [address] [place] [phone] Hazel Hardwick RN 05/03/2024 Orders Only [facility] Hematology [address] [place] [phone] Darling Frank Hereditary hemochromatosis (HCC) (Primary Dx) from Last 3 Months Immunizations Immunization Administration Dates Next Due Influenza, Quad, Adjuvantate [...] on file Legal Sex Male 10:28 AM ACTUARY CLERK Gender Identity Not on file Sexual Orientation Not on file Obstetrics History Last Filed Vital Signs Vital Sign Reading Time Taken Comments Blood Pressure 144/78 07/06/2024 2:13 PM ACTUARY CLERK Pulse 70 07/06/2024 2:13 PM ACTUARY CLERK Temperature 36.6 C (97.9 F) 07/06/2024 2:13 PM ACTUARY CLERK Respiratory Rate 18 07/06/2024 2:13 PM ACTUARY CLERK Oxygen Saturation 98% 07/06/2024 2:13 PM ACTUARY CLERK Inhaled Oxygen Concentration - - Weight 70.9 kg (156 lb 4.8 oz) 07/06/2024 2:13 P M ACTUARY CLERK Height 179.1 cm (5' 10.5 ) 10/19/2023 [...] Diagnosis Comments EGFR Routine 07/06/2024 1:42 PM ACTUARY CLERK Hereditary hemochromatosis (HCC) DIFFERENTIAL AUTO Routine 07/06/2024 1:4 2 PM ACTUARY CLERK Hereditary hemochromatosis (HCC) IRON PROFILE W/ IBC Routine 07/06/2024 1 :42 PM ACTUARY CLERK Hereditary hemochromatosis (HCC) FERRITIN Routine 07/06/2024 1:42 PM ACTUARY CLERK Hereditary hemochromatosis (HCC) CBC WITH AUTO DIFFERENTIAL Routine 07/06/2024 1:42 PM ACTUARY CLERK Hereditary hemochromatosis (HCC) COMPREHENSIVE METABOLIC PANEL Routine 07/06/2024 1:42 PM ACTUARY CLERK Hereditary hemochromatosis (HCC) from Last 3 Months Results * eGFR (07/06/2024 1:42 PM ACTUARY CLERK) eGFR 89 >=60 mL/min/1. 73 m2 Comment: [...] of Race in Diagnosing Kidney Disease, JASN 202). The CKD-EPI equation should not be used for patients with unstable renal function and has not been validated in children and those over 70. Current interpretive data was last reviewed 2021. Testing performed by: [facility], [address] [place] [address]., [address] Blood 07/06/2024 1:42 PM ACTUARY CLERK 07/06/2024 1:49 PM ACTUARY CLERK us Jayne Wigginse Ancelmo TIPPLE SUPERVISOR LAB BLOOD ORDERABLES Final Result TISHA [address] [facility] Department [place] [address] * Differential, auto (07/06/2024 1:42 PM ACTUARY CLERK) Neutrophil abs 2.7 1.5 - 6.5 K/cumm Comment:Testing performed by : [address] [address] Imm gran abs 0.0 0.0 - 0.1 K/cumm TISHA Comment:Testing performed by : [address] [address] Lymphocyte abs 1.0 0.8 - 3.3 K/cumm TISHA Comment:Testing performed by : [address] [address] Monocyte abs 0.3 0.2 - 0.8 K/cumm TISHA Comment:Testing performed by : [address] [address] Eosinophil abs 0.0 0.0 - 0.5 K/cumm TISHA Comment:Testing performed by : [address] [address] Basophil abs 0.0 0.0 - 0.1 K/cumm TISHA Comment:Testing performed by : [address] [address] Neutrophil pct 66.0 % TISHA Comment: Interpretive Data Percent cell count reference ranges are not reported, since discordance with absolute values may lead to misinterpretation of CBC data. Current Interpretive Data was last revised on 2017. Testing performed by: [address] [address] Imm gran pct 0.2 % TISHA Comment: Interpretive Data Percent cell count reference ranges are not reported, since discordance with absolute values may lead to misinterpretation of CBC data. Current Interpretive Data was last revised on 2017. Testing performed by: [address] [address] Lymphocyte pct 24.0 % [facility] Comment: Interpretive Data Percent cell count reference ranges are not reported, since discordance with absolute values may lead to misinterpretation of CBC data. Current Interpretive Data was last revised on 2017. Testing performed by: [address] [address] Monocyte pct 8.3 % [facility] Comment: Interpretive Data Percent cell count reference ranges are not reported, since discordance with absolute values may lead to misinterpretation of CBC data. Current Interpretive Data was last revised on 2017. Testing performed by: [address] [address] Eosinophil pct 1.0 % [facility] Comment: Interpretive Data Percent cell count reference ranges are not reported, since discordance with absolute values may lead to misinterpretation of CBC data. Current Interpretive Data was last revised on 2017. Testing performed by: [address] [address] Basophil pct 0.5 % [facility] Comment: Interpretive Data Percent cell count reference ranges are not reported, since discordance with absolute values may lead to misinterpretation of CBC data. Current Interpretive Data was last revised on 2017. Testing performed by: [address] [address] Blood 07/06/2024 1:42 PM ACTUARY CLERK 07/06/2024 1:49 PM ACTUARY CLERK us Jayne Ag TIPPLE SUPERVISOR LAB BLOOD ORDERABLES Final Result TISHA [address] [facility] Department [place] [address] * (ABNORMAL) Iron profile w/ IBC (07/06/2024 1:42 PM ACTUARY CLERK) Iron 154(H) 50 - 150 mcg/dL Comment:Testing performed by : [address] [address] TIBC 206(L) 250 - 400 mcg/dL TISHA MUNOZ Comment:Testing performed by : [address] [address] Transferrin saturation 75(H) 20 - 50 % TISHA MUNOZ Comment:Testing performed by : [address] [address] Blood 07/06/2024 1:42 PM ACTUARY CLERK 07/06/2024 4:43 PM ACTUARY CLERK Jayne Ag TIPPLE SUPERVISOR LAB BLOOD ORDERABLES Final Result TISHA [address] [facility] Department [place] [address] * (ABNORMAL) CBC with auto differential (07/06/2024 1:42 PM ACTUARY CLERK) WBC 4.1 3.8 - 9.9 K/cumm Comment:Testing performed by : [address] [address] Hgb 15.5 13.0 - 17.5 g/dL TISHA MUNOZ Comment:Testing performed by : [address] [address] Hct 42.9 38.9 - 50.3 % TISHA MUNOZ Comment:Testing performed by : [address] [address] Plt 252 150 - 400 K/cumm TISHA MUNOZ Comment:Testing performed by : [address] [address] MPV 9.7 9.1 - 12.3 fL TISHA MUNOZ Comment:Testing performed by : [address] [address] RBC 4.83 4.30 - 5.80 M/cumm TISHA MUNOZ Comment:Testing performed by : [address] [address] MCV 88.8 81.3 - 96.4 fL TISHA Comment:Testing performed by : [address] [address] MCH 32.1 27.1 - 33.3 pg TISHA MUNOZ Comment:Testing performed by : [facility], [address] [place] [address]., [address] MCHC 36.1(H) 32.3 - 35.7 g/dL TISHA MUNOZ Comment:Testing performed by : [address] [address] RDW CV 12.5 11.1 - 14.9 % TISHA MUNOZ Comment:Testing performed by : [address] [address] RDW SD 40.7 35.7 - 48.1 fL TISHA MUNOZ Comment:Testing performed by : [address] [address] NRBC abs 0.00 0.00 - 0.01 K/cumm TISHA MUNOZ Comment:Testing performed by : [address] [address] Blood 07/06/2024 1:42 PM ACTUARY CLERK 07/06/2024 1:49 PM ACTUARY CLERK Jayne Ag TIPPLE SUPERVISOR LAB BLOOD ORDERABLES Final Result Performing Organization Address City/[facility]/ZIP Co de Phone Number [address] [place] [address] * Ferritin (07/06/2024 1:42 PM ACTUARY CLERK) Pathologist [facility] Ferritin 132 30 - 400 ng/mL Comment:Testing performed by : [address] [address] Blood 07/06/2024 1:42 PM ACTUARY CLERK 07/06/2024 4:43 PM ACTUARY CLERK Jayne Ag TIPPLE SUPERVISOR LAB BLOOD ORDERABLES Final Result Performing Organization Address City[facility]/ZIP Co de Phone Number [address] [address] * (ABNORMAL) Comprehensive metabolic panel (07/06/2024 1:42 PM ACTUARY CLERK) Pathologist [facility] Sodium 145 135 - 145 mmol/L Comment:Testing performed by : [address], [place]., [address] Potassium, pl 4.2 3.3 - 4.9 mmol/L [facility] Comment:Testing performed by : [address], [place]., [address] Chloride 108 97 - 110 mmol/L [facility] Comment:Testing performed by : [address], [place]., [address] CO2 27 22 - 32 mmol/L TISHA Comment:Testing performed by : [address], [place]., [address] Anion gap 10 2 - 15 mmol/L [facility] Comment:Testing performed by : [address], [place]., [address] BUN 17 6 - 25 mg/dL [facility] Comment:Testing performed by : [address], [place]., [address] Creatinine 0.90 0.80 - 1.30 mg/dL [facility] Comment:Testing performed by : [address], [place]., [address] Glucose 115 70 - 199 mg/dL [facility] Comment: Interpretive Data Fasting glucose >/= [...] was last revised 2022. Testing performed by: [address] [address] Calcium 9.1 8.5 - 10.3 mg/dL TISHA Comment:Testing performed by : [address] [address] Bilirubin, total 0.7 0.1 - 1.2 mg/dL [facility] Comment:Testing performed by : [address] [address] Protein, pl 6.4(L) 6.5 - 8.5 g/dL TISHA Comment:Testing performed by : [address] [address] Albumin 4.1 3.5 - 5.0 g/dL TISHA Comment:Testing performed by : [address] [address] Alk phos 73 40 - 130 Units/L TISHA Comment:Testing performed by : [address] [address] ALT 8 7 - 55 Units/L TISHA Comment:Testing performed by : [address] [address] AST 14 10 - 50 Units/L TISHA Comment:Testing performed by : [address] [address] Blood 07/06/2024 1:42 PM ACTUARY CLERK 07/06/2024 1:49 PM ACTUARY CLERK Jayne Ag NP LAB BLOOD ORDERABLES Final Result TISHA [address] [facility] Department [place] [address] from Last 3 Months Insurance [place] [address] MEDICARE [facility] [employer] Care Teams Maintenance Worker Swimming Pool Relationship Specialty Start Date End Date Ambrose Watkins MD PCP - General Family Medicine 05/10/18 Liliya Montalvo NP [address] [place] [address] Nurse Practitioner Medical Oncology 10/20/22
--- OUTSIDE RECORDS SUMMARY | 2024-07-30 08:53 | XMS_ITS | Referral Summary ---
Author Organization [facility] Address [address] [facility] [place] [address] Care Team Providers Care Health Care Manager Name Role Phone Ambrose Watkins MD Primary Care Provider [phone] Source Comments [facility],non-owned Affiliates and Associated Physician Practices is amultiple site organization consisting of ambulatory clinics and hospital sitesin [place], [place], [place] and [place]. This disclosure is being madepursuant to the Care Everywhere program and may not contain all information available regarding this patient. Last updated 18.[employer] [facility] Allergies No known active allergies Active Problems [...] of Treatment Not on file Care Teams Health Care Manager Relationship Specialty Start Date End Date Ambrose Watkins MD [address] [place] [address] PCP - General Family Medicine 04/08/16
--- OUTSIDE RECORDS SUMMARY | 2024-07-30 08:53 | XMS_ITS | Continuity of Care Document ---
Author Organization [facility] Address [address] [place] [address] [place] [address] Phone Care Team Providers Care Computer Forwarding System Markup Clerk Name Role Phone Vinay Paulino DO Unavailable Unavailable Advance Directives Directive Yes / No Effective Date File Name No Information Encounters Encounter Description Practice Location Reason(s) For Visit Diagnoses Date Provider Providers Copied on Encounter [facility], [id number] [place] [address] [address], [place], [place], [id number], [place] tel:[phone] [facility] No Information Jefferson Jose. [address] [facility], [place], [address], [place]. tel: [phone] Family History Family Member Type Diagnosis Age At Onset No Information Payers Payer name Insurance type Covered republican ID Authoriza tion(s) [facility] [id number] Social History Type Description Quantity Date Captured [...]
--- OUTSIDE RECORDS SUMMARY | 2024-07-30 08:53 | XMS_ITS | Clinical Summary ---
Author Organization [facility] [employer] Address [address] [facility] [place] [address] Care Team Providers Care Faith Doctor Name Role Phone Ambrose Watkins MD Primary Care Provider [phone] Source Comments [facility] [employer],non-owned Affiliates and Associated Physician Practices is amultiple site organization consisting of ambulatory clinics and hospital sitesin [place], [place], [place] and [place]. This disclosure is being madepursuant to the Care Everywhere program and may not contain all information available regarding this patient. Last updated 18.[employer] Allergies No known active allergies Active Problems [...] age to complete this topic Care Teams Faith Doctor Relationship Specialty Start Date End Date Ambrose Watkins MD [address] [place] [address] PCP - General Family Medicine 04/08/16
--- OUTSIDE RECORDS SUMMARY | 2024-07-30 08:53 | XMS_ITS | Referral Summary ---
Author Organization [facility] Address [address] [place] [address] Phone Care Team Providers Care Bridge Mechanic Name Role Phone Ambrose Watkins MD Primary Care Provider [phone] Liliya Montalvo TRAIL MAINTENANCE WORKER Unavailable [phone] Encounters Date Type Department Care Team Description 07/19/2024 Telephone [facility] [address] [place] [address] Dia De Anda 07/19/2024 Orders Only [facility] [address] [address] Dia De Anda Hereditary hemochromatosis (HCC) (Primary Dx) 07/15/2024 Telephone [facility] [address] [address] [phone] Dia De Andasia 07/06/2024 2:45 PM SLAG MIXER Infusion [facility] at [address] [place] [id number] Hereditary hemochromatosis (HCC) 07/06/2024 2:00 PM SLAG MIXER Lab [facility] at [address] [address] Hereditary hemochromatosis (HCC) 06/15/2024 Orders Only [facility] [address] [place] [phone] Dia De Anda Hereditary hemochromatosis (HCC) (Primary Dx) 06/13/2024 Telephone [facility] Floor [address] [place] [address] Dia De Anda 05/12/2024 Anticoagulation Visit [facility] [address] [place] [address] Hazel Hardwick RN 05/03/2024 Orders Only [facility] [address] [place] [address] Darling Frank Hereditary hemochromatosis (HCC) [...] Noted Date Diagnosed Date Hemochromatosis 11/12/2017 Immunizations Immunization Administration Dates Next Due Influenza, [...] on file Legal Sex Male 10:28 AM SLAG MIXER Gender Identity Not on file Sexual Orientation Not on file Last Filed Vital Signs Vital Sign Reading Time Taken Comments Blood Pressure 144/78 07/06/2024 2:13 PM SLAG MIXER Pulse 70 07/06/2024 2:13 PM SLAG MIXER Temperature 36.6 C (97.9 F) 07/06/2024 2:13 PM SLAG MIXER Respiratory Rate 18 07/06/2024 2:13 PM SLAG MIXER Oxygen Saturation 98% 07/06/2024 2:13 PM SLAG MIXER Inhaled Oxygen Concentration - - Weight 70.9 kg (156 lb 4.8 oz) 07/06/2024 2:13 P M SLAG MIXER Height 179.1 cm (5' 10.5 ) 10/19/2023 1:42 PM CD T Body Mass Index 22.11 10/19/2023 1:42 PM CDT Plan of Treatment Not on file Procedures Procedure Name Priority Date/Time Associated Diagnosis Comments EGFR Routine 07/06/2024 1:42 PM SLAG MIXER Hereditary hemochromatosis (HCC) DIFFERENTIAL AUTO Routine 07/06/2024 1:4 2 PM SLAG MIXER Hereditary hemochromatosis (HCC) IRON PROFILE W/ IBC Routine 07/06/2024 1 :42 PM SLAG MIXER Hereditary hemochromatosis (HCC) FERRITIN Routine 07/06/2024 1:42 PM SLAG MIXER Hereditary hemochromatosis (HCC) CBC WITH AUTO DIFFERENTIAL Routine 07/06/2024 1:42 PM SLAG MIXER Hereditary hemochromatosis (HCC) COMPREHENSIVE METABOLIC PANEL Routine 07/06/2024 1:42 PM SLAG MIXER Hereditary hemochromatosis (HCC) from Last 3 Months Results * eGFR (07/06/2024 1:42 PM SLAG MIXER) eGFR 89 >=60 mL/min/1. 73 m2 Comment: [...] last reviewed 2021. Testing performed by: [address] [address] Blood 07/06/2024 1:42 PM SLAG MIXER 07/06/2024 1:49 PM SLAG MIXER Jayne Ag TRAIL MAINTENANCE WORKER LAB BLOOD ORDERABLES Final Result TISHA [address] [facility] Department [place] [address] * Differential, auto (07/06/2024 1:42 PM SLAG MIXER) Pathologist [facility] Neutrophil abs 2.7 1.5 - 6.5 K/cumm Comment:Testing performed by : [address] [address] Imm gran abs 0.0 0.0 - 0.1 K/cumm TISHA MUNOZ Comment:Testing performed by : [address] [address] Lymphocyte abs 1.0 0.8 - 3.3 K/cumm TISHA MUNOZ Comment:Testing performed by : [address] [address] Monocyte abs 0.3 0.2 - 0.8 K/cumm [facility] Comment:Testing performed by : [address] [address] Eosinophil abs 0.0 0.0 - 0.5 K/cumm [facility] Comment:Testing performed by : [address] [address] Basophil abs 0.0 0.0 - 0.1 K/cumm [facility] Comment:Testing performed by : [address] [address] Neutrophil pct 66.0 % [facility] Comment: Interpretive Data Percent cell count reference ranges are not reported, since discordance with absolute values may lead to misinterpretation of CBC data. Current Interpretive Data was last revised on 2017. Testing performed by: [address] [address] Imm gran pct 0.2 % [facility] Comment: Interpretive Data Percent cell count reference ranges are not reported, since discordance with absolute values may lead to misinterpretation of CBC data. Current Interpretive Data was last revised on 2017. Testing performed by: [address] [address] Lymphocyte pct 24.0 % [facility] Comment: Interpretive Data Percent cell count reference ranges are not reported, since discordance with absolute values may lead to misinterpretation of CBC data. Current Interpretive Data was last revised on 2017. Testing performed by: [address] [address] Monocyte pct 8.3 % [facility] Comment: Interpretive Data Percent cell count reference ranges are not reported, since discordance with absolute values may lead to misinterpretation of CBC data. Current Interpretive Data was last revised on 2017. Testing performed by: [address] [address] Eosinophil pct 1.0 % [facility] Comment: Interpretive Data Percent cell count reference ranges are not reported, since discordance with absolute values may lead to misinterpretation of CBC data. Current Interpretive Data was last revised on 2017. Testing performed by: [address] [place]., [address] Basophil pct 0.5 % TISHA Comment: Interpretive Data Percent cell count reference ranges are not reported, since discordance with absolute values may lead to misinterpretation of CBC data. Current Interpretive Data was last revised on 2017. Testing performed by: [facility], [address] [place] [address]., [address] Blood 07/06/2024 1:42 PM SLAG MIXER 07/06/2024 1:49 PM SLAG MIXER Jayne Ag TRAIL MAINTENANCE WORKER LAB BLOOD ORDERABLES Final Result TISHA [facility] [place] [address] * (ABNORMAL) Iron profile w/ IBC (07/06/2024 1:42 PM SLAG MIXER) Iron 154(H) 50 - 150 mcg/dL Comment:Testing performed by : [address] [address] TIBC 206(L) 250 - 400 mcg/dL TISHA Comment:Testing performed by : [address] [address] Transferrin saturation 75(H) 20 - 50 % TISHA Comment:Testing performed by : [address] [address] Blood 07/06/2024 1:42 PM SLAG MIXER 07/06/2024 4:43 PM SLAG MIXER Jayne Ag TRAIL MAINTENANCE WORKER LAB BLOOD ORDERABLES Final Result CHATOTAMANNA [address] [facility] [place] [address] * (ABNORMAL) CBC with auto differential (07/06/2024 1:42 PM SLAG MIXER) WBC 4.1 3.8 - 9.9 K/cumm Comment:Testing performed by : [address] [address] Hgb 15.5 13.0 - 17.5 g/dL TISHA Comment:Testing performed by : [address] [address] Hct 42.9 38.9 - 50.3 % TISHA Comment:Testing performed by : [address] [address] Plt 252 150 - 400 K/cumm TISHA Comment:Testing performed by : [address] [address] MPV 9.7 9.1 - 12.3 fL TISHA Comment:Testing performed by : [address] [address] RBC 4.83 4.30 - 5.80 M/cumm TISHA Comment:Testing performed by : [address] [address] MCV 88.8 81.3 - 96.4 fL TISHA Comment:Testing performed by : [address] [address] MCH 32.1 27.1 - 33.3 pg TISHA Comment:Testing performed by : [address] [address] MCHC 36.1(H) 32.3 - 35.7 g/dL TISHA Comment:Testing performed by : [address] [address] RDW CV 12.5 11.1 - 14.9 % TISHA Comment:Testing performed by : [address] [address] RDW SD 40.7 35.7 - 48.1 fL TISHA Comment:Testing performed by : [address] [address] NRBC abs 0.00 0.00 - 0.01 K/cumm TISHA Comment:Testing performed by : [address] [address] Blood 07/06/2024 1:42 PM SLAG MIXER 07/06/2024 1:49 PM SLAG MIXER Jayne Ag TRAIL MAINTENANCE WORKER LAB BLOOD ORDERABLES Final Result CHATO[address] [address] * Ferritin (07/06/2024 1:42 PM SLAG MIXER) Pathologist [facility] Ferritin 132 30 - 400 ng/mL Comment:Testing performed by : [address] [address] Blood 07/06/2024 1:42 PM SLAG MIXER 07/06/2024 4:43 PM SLAG MIXER Jayne Ag TRAIL MAINTENANCE WORKER LAB BLOOD ORDERABLES Final Result Performing Organization Address City/[facility] Co de Phone Number TISHA [address] [address] * (ABNORMAL) Comprehensive metabolic panel (07/06/2024 1:42 PM SLAG MIXER) [facility] Sodium 145 135 - 145 mmol/L Comment:Testing performed by : [address] [address] Potassium, pl 4.2 3.3 - 4.9 mmol/L TISHA Comment:Testing performed by : [address] [address] Chloride 108 97 - 110 mmol/L TISHA Comment:Testing performed by : [address] [address] CO2 27 22 - 32 mmol/L TISHA Comment:Testing performed by : [address] [address] Anion gap 10 2 - 15 mmol/L TISHA Comment:Testing performed by : [address] [address] BUN 17 6 - 25 mg/dL TISHA Comment:Testing performed by : [address] [address] Creatinine 0.90 0.80 - 1.30 mg/dL TISHA Comment:Testing performed by : [address] [place]., [address] Glucose 115 70 - 199 mg/dL [facility] [...] last revised 2022. Testing performed by: [address] [address] Calcium 9.1 8.5 - 10.3 mg/dL TISHA Comment:Testing performed by : [address] [address] Bilirubin, total 0.7 0.1 - 1.2 mg/dL [facility] Comment:Testing performed by : [address] [address] Protein, pl 6.4(L) 6.5 - 8.5 g/dL [facility] Comment:Testing performed by : [address] [address] Albumin 4.1 3.5 - 5.0 g/dL [facility] Comment:Testing performed by : [address] [address] Alk phos 73 40 - 130 Units/L [facility] Comment:Testing performed by : [address] [address] ALT 8 7 - 55 Units/L [facility] Comment:Testing performed by : [address] [address] AST 14 10 - 50 Units/L TISHA Comment:Testing performed by : [address] [address] Blood 07/06/2024 1:42 PM SLAG MIXER 07/06/2024 1:49 PM SLAG MIXER us Jayne Ag NP LAB BLOOD ORDERABLES Final Result CHATONER [address]42 [facility] Department [place] [address] from Last 3 Months Insurance MEDICARE [facility] FEDERAL MEDICARE BCBS FEDERAL Care Teams Bridge Mechanic Relationship Specialty Start Date End Date Ambrose Watkins MD PCP - General Family Medicine 05/10/18 Liliya Montalvo, SAMIA [address] [place] [address] Nurse Practitioner Medical Oncology 10/20/22
== END 2024-07-30 08:45 | disposition home or self-care (01) ==
PROVIDERS: PCP Family Medicine; Visit Provider Orthopaedic Surgery
DX: M70.22 Olecranon bursitis, left elbow (principal); M75.122 Complete rotator cuff tear or rupture of left shoulder, not specified as traumatic; M19.012 Primary osteoarthritis, left shoulder; M25.412 Effusion, left shoulder; M19.022 Primary osteoarthritis, left elbow
CPT/HCPCS: 73080; 73221

== ENCOUNTER 2024-08-31 00:01 | Day surgery (SDC) | payer MEDICARE, BC, SELFPAY ==
--- NOTE | 2024-08-18 13:14 | PC.NURSE ---
Report to the Outpatient Waiting Room, entrance under the green pavilion located off [facility], at time __10 AM on date _08/31/24 . Planned Procedure Time: _1200 NOON .? Time changes happen often and if your time is changed the preop area will call you the afternoon before. - You and your visitor will be asked to self-screen and do not enter if you have any COVID symptoms. Please call surgeon if you need to reschedule. - A mask is optional within the hospital at this time. Patients may have clear liquids (water, carbonated beverages, clear teas, apple juice) until 3 hours prior to surgery ( 9 AM) with a maximum of 20 ounces. - No food from midnight until time of surgery and no smoking, or chewing tobacco (or any form of nicotine). No chewing gum, candy or mints. - Take only the following medications with a SIP of water on the morning of surgery: EYE DROPS DO NOT STOP ANY OF YOUR OTHER PRESCRIPTION MEDICATIONS PRIOR TO SURGERY EXCEPT THE FOLLOWING Hold all vitamins and supplements for 3 days per anesthesiologist.LAST DOSE 08/27/24 Medications to discontinue per physician NONE Please no make-up, nail lao, hairspray, perfume, deodorant, or body powder the day of surgery.? No jewelry (including any body piercings) or valuables the day of surgery, leave them at home.? Please take a shower or bath the night before, or the morning of, surgery with an antibacterial soap.? Wear comfortable, loose fitting clothing.? Children are encouraged to wear pajamas. - Jewelry must be removed prior to entering the operating room.? Rings and piercings that are not removed may be cut off. - The hospital will not accept responsibility for valuables.? - Please leave all valuables, including medications, at home the day of surgery. If you are going home after surgery, a licensed gas truck driver must drive you home.? - NO public transportation without another adult if you receive anesthesia. - We recommend that an adult stay with you for 24 hours following discharge. - We also recommend that you do not drive, make important decision, drink alcoholic beverages, or take any drugs that were not prescribed by your health care provider for at least 24 hours after your discharge time. Follow any additional instructions given to you from your surgeon. Telephone instructions given to __PATIENT and asked if any additional questions and then verbalized understanding. Patient advised to call surgeon office or pre surgery nurse liaison [phone] if any additional questions.
[2024-08-18 13:25] VITALS: BMI 21.5
[2024-08-31] VITALS (11 sets, daily range): BP systolic 122–145; BP diastolic 63–72; PULSE 63–77; RESP 12–18; TEMP 36.2–36.5; O2SAT 95–100; BMI 21.4
--- OUTSIDE RECORDS SUMMARY | 2024-08-31 00:04 | XMS_ITS | Continuity of Care Document ---
Author Organization [facility] Address [address] [place] [address] [place] [address] Phone Care Team Providers Care Analytical Technician Name Role Phone Vinay Paulino DO Unavailable Unavailable Advance Directives Directive Yes / No Effective Date File Name No Information Encounters Encounter Description Practice Location Reason(s) For Visit Diagnoses Date Provider Providers Copied on Encounter [facility], [id number] [place] [address] [address], [place], [place], [id number], [place] tel:[phone] [facility] No Information [facility]. [address] [facility], [place], [address], [place]. tel: [phone] Family History Family Member Type Diagnosis Age At Onset No Information Payers Payer name Insurance type Covered alliance party ID Authoriza tion(s) [facility] [id number] Social History Type Description Quantity Date Captured [...]
--- OUTSIDE RECORDS SUMMARY | 2024-08-31 00:04 | XMS_ITS | Clinical Summary ---
Author Organization [facility] Address [address] [place] [address] Phone Care Team Providers Care Range Mechanic Name Role Phone Ambrose Watkins MD Primary Care Provider [phone] Liliya Montalvo [employer]KE [employer]ER Unavailable [phone] Allergies Active Allergy Reactions Criticality Noted [...] Encounters Date Type Department Care Team Description 08/17/2024 8:30 AM CDT Infusion [facility] at [address] [place] [address] Hereditary hemochromatosis (Primary Dx) 08/17/2024 8:00 AM CDT Lab [facility] at [address] [address] Hereditary hemochromatosis 08/17/2024 Orders Only [facility] Hematology [facility] Floor 6 [place] [address] Dia De Anda Hereditary hemochromatosis (Primary Dx) 08/02/2024 3:30 PM DEPUTY SHERIFF K9 HANDLER Infusion [facility] at [address] [place] [phone] Hereditary hemochromatosis (Primary Dx) 08/02/2024 3:00 PM DEPUTY SHERIFF K9 HANDLER Lab [facility] at [address] [address] Hereditary hemochromatosis 08/02/2024 Orders Only [facility] Hematology [facility] 6 [place] [id number] Darling Frank 08/02/2024 Orders Only [facility] Hematology [facility] Floor [address] [place] [address] Darling Frank Hereditary hemochromatosis (Primary Dx) 07/19/2024 Telephone [facility] Hematology [facility] 6 [place] [address] Dia De Anda 07/19/2024 Orders Only [facility] Hematology [facility] [address] [place] [address] Dia De Anda Hereditary hemochromatosis (Primary Dx) 07/15/2024 Telephone [facility] Hematology [facility] [address] [place] [address] Dia De Anda 07/06/2024 2:45 PM DEPUTY SHERIFF K9 HANDLER Infusion [facility] at [address] [place] [phone] Hereditary hemochromatosis 07/06/2024 2:00 PM DEPUTY SHERIFF K9 HANDLER Lab [facility] at [address] [address] Hereditary hemochromatosis 06/15/2024 Orders Only [facility] Hematology [facility] [address] [place] [address] Dia De Anda Hereditary hemochromatosis (Primary Dx) 06/13/2024 Telephone [facility] Hematology [address] [place] [address] 6 [place] [address] Dia De Anda from Last 3 Months Immunizations Immunization Administration [...] History Medical History Date Comments Hereditary hemochromatosis Social History Tobacco Use Types Packs/Day Years [...] on file Legal Sex Male 10:28 AM DEPUTY SHERIFF K9 HANDLER Gender Identity Not on file Sexual Orientation Not on file Obstetrics History Last Filed Vital Signs Vital Sign Reading Time Taken Comments Blood Pressure 172/88 08/17/2024 11:00 AM CDT Pulse 83 08/17/2024 11:00 AM CDT Temperature 36.5 C (97.7 F) 08/02/2024 2:51 PM DEPUTY SHERIFF K9 HANDLER Respiratory Rate 18 08/17/2024 11:00 AM CDT Oxygen Saturation 96% 08/17/2024 11:00 AM CDT Inhaled Oxygen Concentration - - Weight 70.5 kg (155 lb 6.4 oz) 08/17/2024 11:00 AM CDT Height 179.1 cm (5' 10.5 ) 10/19/2023 1:42 PM CD T Body Mass Index 21.98 10/19/2023 1:42 PM CDT Plan of Treatment [...] Additional history exists Influenza Vaccine (#1) 2024 0, 04/14/2019, 04/19/2018, Additional history exists DTaP/Tdap/Td Vaccine (2 - Td or Tdap) 07/28/2029 07/28/2019 Procedures Procedure Name Priority Date/Time Associated Diagnosis Comments EGFR Routine 08/17/2024 11:01 AM CDT Hereditary hemochromatosis DIFFERENTIAL AUTO Routine 08/17/2024 11: 01 AM CDT Hereditary hemochromatosis CBC WITH AUTO DIFFERENTIAL Routine 08/17/2024 11:01 AM CDT Hereditary hemochromatosis COMPREHENSIVE METABOLIC PANEL Routine 08/17/2024 11:01 AM CDT Hereditary hemochromatosis FERRITIN Routine 08/17/2024 11:01 AM CDT Hereditary hemochromatosis IRON PROFILE W/ IBC Routine 08/17/2024 1 1:01 AM CDT Hereditary hemochromatosis EGFR Routine 08/02/2024 2:43 PM DEPUTY SHERIFF K9 HAND[employer]ER Hereditary hemochromatosis DIFFERENTIAL AUTO Routine 08/02/2024 2:4 3 PM DEPUTY SHERIFF K9 HANDLER Hereditary hemochromatosis CBC WITH AUTO DIFFERENTIAL Routine 08/02/2024 2:43 PM DEPUTY SHERIFF K9 HANDLER Hereditary hemochromatosis COMPREHENSIVE METABOLIC PANEL Routine 08/02/2024 2:43 PM DEPUTY SHERIFF K9 HANDLER Hereditary hemochromatosis FERRITIN Routine 08/02/2024 2:43 PM DEPUTY SHERIFF K9 HANDLER Hereditary hemochromatosis IRON PROFILE W/ IBC Routine 08/02/2024 2 :43 PM DEPUTY SHERIFF K9 HANDLER Hereditary hemochromatosis EGFR Routine 07/06/2024 1:42 PM DEPUTY SHERIFF K9 HANDLER Hereditary hemochromatosis DIFFERENTIAL AUTO Routine 07/06/2024 1:4 2 PM DEPUTY SHERIFF K9 HANDLER Hereditary hemochromatosis IRON PROFILE W/ IBC Routine 07/06/2024 1 :42 PM DEPUTY SHERIFF K9 HANDLER Hereditary hemochromatosis FERRITIN Routine 07/06/2024 1:42 PM DEPUTY SHERIFF K9 HANDLER Hereditary hemochromatosis CBC WITH AUTO DIFFERENTIAL Routine 07/06/2024 1:42 PM DEPUTY SHERIFF K9 HANDLER Hereditary hemochromatosis COMPREHENSIVE METABOLIC PANEL Routine 07/06/2024 1:42 PM DEPUTY SHERIFF K9 HANDLER Hereditary hemochromatosis from Last 3 Months Results * eGFR (08/17/2024 11:01 AM CDT) Pathologist [facility] eGFR 70 >=60 mL/min/1. 73 m2 Comment: [...] was last reviewed 2021. Testing performed by: [address] [address] Blood 08/17/2024 11:0 1 AM CDT 08/17/2024 11:03 AM CDT us Jayne Ag [employer] LAB BLOOD ORDERABLES Final Result TISHA [address] [facility] Department [place] [address] * (ABNORMAL) Differential, auto (08/17/2024 11:01 AM CDT) Neutrophil abs 5.0 1.5 - 6.5 K/cumm Comment:Testing performed by : [address] [address] Imm gran abs 0.0 0.0 - 0.1 K/cumm TISHA Comment:Testing performed by : [address] [address] Lymphocyte abs 0.7(L) 0.8 - 3.3 K/cumm TISHA Comment:Testing performed by : [address] [address] Monocyte abs 0.6 0.2 - 0.8 K/cumm TISHA Comment:Testing performed by : [address] [address] Eosinophil abs 0.1 0.0 - 0.5 K/cumm TISHA Comment:Testing performed by : [address] [address] Basophil abs 0.0 0.0 - 0.1 K/cumm TISHA Comment:Testing performed by : [address] [address] Neutrophil pct 78.6 % TISHA Comment: Interpretive Data Percent cell count reference ranges are not reported, since discordance with absolute values may lead to misinterpretation of CBC data. Current Interpretive Data was last revised on 2017. Testing performed by: [address] [address] Imm gran pct 0.2 % [facility] Comment: Interpretive Data Percent cell count reference ranges are not reported, since discordance with absolute values may lead to misinterpretation of CBC data. Current Interpretive Data was last revised on 2017. Testing performed by: [address] [address] Lymphocyte pct 10.3 % [facility] Comment: Interpretive Data Percent cell count reference ranges are not reported, since discordance with absolute values may lead to misinterpretation of CBC data. Current Interpretive Data was last revised on 2017. Testing performed by: [address] [address] Monocyte pct 9.5 % [facility] Comment: Interpretive Data Percent cell count reference ranges are not reported, since discordance with absolute values may lead to misinterpretation of CBC data. Current Interpretive Data was last revised on 2017. Testing performed by: [address] [address] Eosinophil pct 1.1 % [facility] Comment: Interpretive Data Percent cell count reference ranges are not reported, since discordance with absolute values may lead to misinterpretation of CBC data. Current Interpretive Data was last revised on 2017. Testing performed by: [address] [address] Basophil pct 0.3 % [facility] Comment: Interpretive Data Percent cell count reference ranges are not reported, since discordance with absolute values may lead to misinterpretation of CBC data. Current Interpretive Data was last revised on 2017. Testing performed by: [address] [address] Blood 08/17/2024 11:0 1 AM CDT 08/17/2024 11:03 AM CDT Jayne Ag [employer] LAB BLOOD ORDERABLES Final Result [facility] [address] [facility] Department [place] [address] * (ABNORMAL) Iron profile w/ IBC (08/17/2024 11:01 AM CDT) [facility] Iron 113 50 - 150 mcg/dL Comment:Testing performed by : [address] [address] TIBC 218(L) 250 - 400 mcg/dL TISHA MUNOZ Comment:Testing performed by : [address] [address] Transferrin saturation 52(H) 20 - 50 % TISHA MUNOZ Comment:Testing performed by : [address] [address] Blood 08/17/2024 11:0 1 AM CDT 08/17/2024 11:39 AM CDT Jayne Ag [employer] LAB BLOOD ORDERABLES Final Result Performing Organization Address City/State/[facility] Co de Phone Number TISHA [address] [facility] Department [place] [address] * (ABNORMAL) CBC with auto differential (08/17/2024 11:01 AM CDT) [facility] WBC 6.3 3.8 - 9.9 K/cumm Comment:Testing performed by : [address] [address] Hgb 15.2 13.0 - 17.5 g/dL TISHA MUNOZ Comment:Testing performed by : [address] [address] Hct 42.0 38.9 - 50.3 % TISHA MUNOZ Comment:Testing performed by : [address] [address] Plt 204 150 - 400 K/cumm TISHA MUNOZ Comment:Testing performed by : [address] [address] MPV 9.9 9.1 - 12.3 fL TISHA MUNOZ Comment:Testing performed by : [address] [address] RBC 4.71 4.30 - 5.80 M/cumm TISHA MUNOZ Comment:Testing performed by : [address] [address] MCV 89.2 81.3 - 96.4 fL TISHA MUNOZ Comment:Testing performed by : [address] [address] MCH 32.3 27.1 - 33.3 pg TISHA MUNOZ Comment:Testing performed by : [address], [address] MCHC 36.2(H) 32.3 - 35.7 g/dL TISHA MUNOZ Comment:Testing performed by : [address], [address] RDW CV 12.6 11.1 - 14.9 % TISHA MUNOZ Comment:Testing performed by : [address], [address] RDW SD 41.5 35.7 - 48.1 fL TISHA Comment:Testing performed by : [address], [address] NRBC abs 0.00 0.00 - 0.01 K/cumm TISHA Comment:Testing performed by : [address] [address] Blood 08/17/2024 11:0 1 AM CDT 08/17/2024 11:03 AM CDT Jayne Ag [employer] LAB BLOOD ORDERABLES Final Result TISHA [address] [facility] Department of Laboratories [place], [place] [id number] * Ferritin (08/17/2024 11:01 AM CDT) [facility] Ferritin 83 30 - 400 ng/mL Comment:Testing performed by : [address] [address] Blood 08/17/2024 11:0 1 AM CDT 08/17/2024 11:39 AM CDT us Jayne Ag [employer] LAB BLOOD ORDERABLES Final Result TISHA [address] [facility] Department [place] [address] * Comprehensive metabolic panel (08/17/2024 11:01 AM CDT) Sodium 142 135 - 145 mmol/L Comment:Testing performed by : [address] [address] Potassium, pl 3.9 3.3 - 4.9 mmol/L TISHA Comment:Testing performed by : [address] [address] Chloride 108 97 - 110 mmol/L TISHA Comment:Testing performed by : [address] [address] CO2 25 22 - 32 mmol/L ITSHA Comment:Testing performed by : [address] [address] Anion gap 9 2 - 15 mmol/L TISHA Comment:Testing performed by : [address] [address] BUN 15 6 - 25 mg/dL TISHA Comment:Testing performed by : [address] [address] Creatinine 1.10 0.80 - 1.30 mg/dL TISHA Comment:Testing performed by : [address] [address] Glucose 137 70 - 199 mg/dL TISHA Comment: Interpretive [...] was last revised 2022. Testing performed by: [address] [address] Calcium 9.5 8.5 - 10.3 mg/dL TISHA Comment:Testing performed by : [address] [address] Bilirubin, total 1.0 0.1 - 1.2 mg/dL TISHA Comment:Testing performed by : [address] [address] Protein, pl 6.5 6.5 - 8.5 g/dL TISHA Comment:Testing performed by : [address] [address] Albumin 4.3 3.5 - 5.0 g/dL TISHA Comment:Testing performed by : [address] [address] Alk phos 74 40 - 130 Units/L TISHA Comment:Testing performed by : [address] [address] ALT 9 7 - 55 Units/L TISHA Comment:Testing performed by : [address] [address] AST 15 10 - 50 Units/L TISHA Comment:Testing performed by : [address] [address] Blood 08/17/2024 11:0 1 AM CDT 08/17/2024 11:03 AM CDT Jayne Ag [employer] LAB BLOOD ORDERABLES Final Result TISHA MUNOZ [address] [facility] Department of Laboratories [place], [place] [id number] * eGFR (08/02/2024 2:43 PM DEPUTY SHERIFF K9 HANDLER) eGFR 89 >=60 mL/min/1. 73 m2 Comment: [...] was last reviewed 2021. Testing performed by: [address] [address] Blood 08/02/2024 2:43 PM DEPUTY SHERIFF K9 HANDLER 08/02/2024 2:48 PM DEPUTY SHERIFF K9 HANDLER Jayne Ag [employer] LAB BLOOD ORDERABLES Final Result TISHA [address] [facility] Department [place] [address] * Differential, auto (08/02/2024 2:43 PM DEPUTY SHERIFF K9 HANDLER) Neutrophil abs 3.0 1.5 - 6.5 K/cumm Comment:Testing performed by : [address] [address] Imm gran abs 0.0 0.0 - 0.1 K/cumm TISHA MUNOZ Comment:Testing performed by : [address] [address] Lymphocyte abs 1.3 0.8 - 3.3 K/cumm TISHA Comment:Testing performed by : [address] [address] Monocyte abs 0.5 0.2 - 0.8 K/cumm TISHA MUNOZ Comment:Testing performed by : [address] [address] Eosinophil abs 0.1 0.0 - 0.5 K/cumm TISHA Comment:Testing performed by : [address] [address] Basophil abs 0.0 0.0 - 0.1 K/cumm TISHA Comment:Testing performed by : [address] [address] Neutrophil pct 61.2 % [facility] Comment: Interpretive Data Percent cell count reference ranges are not reported, since discordance with absolute values may lead to misinterpretation of CBC data. Current Interpretive Data was last revised on 2017. Testing performed by: [address] [address] Imm gran pct 0.2 % [facility] Comment: Interpretive Data Percent cell count reference ranges are not reported, since discordance with absolute values may lead to misinterpretation of CBC data. Current Interpretive Data was last revised on 2017. Testing performed by: [address] [address] Lymphocyte pct 26.5 % [facility] Comment: Interpretive Data Percent cell count reference ranges are not reported, since discordance with absolute values may lead to misinterpretation of CBC data. Current Interpretive Data was last revised on 2017. Testing performed by: [address] [address] Monocyte pct 10.1 % [facility] Comment: Interpretive Data Percent cell count reference ranges are not reported, since discordance with absolute values may lead to misinterpretation of CBC data. Current Interpretive Data was last revised on 2017. Testing performed by: [address] [address] Eosinophil pct 1.4 % [facility] Comment: Interpretive Data Percent cell count reference ranges are not reported, since discordance with absolute values may lead to misinterpretation of CBC data. Current Interpretive Data was last revised on 2017. Testing performed by: [address] [address] Basophil pct 0.6 % [facility] Comment: Interpretive Data Percent cell count reference ranges are not reported, since discordance with absolute values may lead to misinterpretation of CBC data. Current Interpretive Data was last revised on 2017. Testing performed by: [address] [address] Blood 08/02/2024 2:43 PM DEPUTY SHERIFF K9 HANDLER 08/02/2024 2:48 PM DEPUTY SHERIFF K9 HANDLER Jayne Ag [employer] LAB BLOOD ORDERABLES Final Result TISHA [facility] [place] [address] * (ABNORMAL) Iron profile w/ IBC (08/02/2024 2:43 PM DEPUTY SHERIFF K9 HANDLER) Pathologist [facility] Iron 182(H) 50 - 150 mcg/dL Comment:Testing performed by : [address] [address] TIBC 213(L) 250 - 400 mcg/dL TISHA MUNOZ Comment:Testing performed by : [address] [address] Transferrin saturation 85(H) 20 - 50 % TISHA MUNOZ Comment:Testing performed by : [address] [address] Blood 08/02/2024 2:43 PM DEPUTY SHERIFF K9 HANDLER 08/02/2024 4:01 PM DEPUTY SHERIFF K9 HANDLER Jayne Ag [employer] LAB BLOOD ORDERABLES Final Result TISHA [facility] [place] [place] [address] * (ABNORMAL) CBC with auto differential (08/02/2024 2:43 PM DEPUTY SHERIFF K9 HANDLER) [facility] WBC 4.8 3.8 - 9.9 K/cumm Comment:Testing performed by : [address] [address] Hgb 14.9 13.0 - 17.5 g/dL TISHA MUNOZ Comment:Testing performed by : [address] [address] Hct 40.7 38.9 - 50.3 % TISHA MUNOZ Comment:Testing performed by : [address] [address] Plt 225 150 - 400 K/cumm TISHA MUNOZ Comment:Testing performed by : [address] [address] MPV 10.0 9.1 - 12.3 fL TISHA MUNOZ Comment:Testing performed by : [address] [address] RBC 4.61 4.30 - 5.80 M/cumm TISHA MUNOZ Comment:Testing performed by : [address] [address] MCV 88.3 81.3 - 96.4 fL TISHA MUNOZ Comment:Testing performed by : [address], [address] MCH 32.3 27.1 - 33.3 pg TISHA MUNOZ Comment:Testing performed by : [address] [address] MCHC 36.6(H) 32.3 - 35.7 g/dL TISHA MUNOZ Comment:Testing performed by : [address], [address] RDW CV 12.8 11.1 - 14.9 % TISHA MUNOZ Comment:Testing performed by : [address], [address] RDW SD 41.4 35.7 - 48.1 fL TISHA MUNOZ Comment:Testing performed by : [address], [address] NRBC abs 0.00 0.00 - 0.01 K/cumm TISHA MUNOZ Comment:Testing performed by : [address] [address] Blood 08/02/2024 2:43 PM DEPUTY SHERIFF K9 HANDLER 08/02/2024 2:48 PM DEPUTY SHERIFF K9 HANDLER Jayne Ag NP LAB BLOOD ORDERABLES Final Result TISHA MUNOZ [address] [facility] Department [place] [address] * Ferritin (08/02/2024 2:43 PM DEPUTY SHERIFF K9 HANDLER) Ferritin 98 30 - 400 ng/mL Comment:Testing performed by : [address] [address] Blood 08/02/2024 2:43 PM DEPUTY SHERIFF K9 HANDLER 08/02/2024 4:01 PM DEPUTY SHERIFF K9 HANDLER Jayne Ag [employer] LAB BLOOD ORDERABLES Final Result Performing Organization Address City/State/[facility] Co de Phone Number [facility] [address] [facility] Department [place] [address] * (ABNORMAL) Comprehensive metabolic panel (08/02/2024 2:43 PM DEPUTY SHERIFF K9 HANDLER) Pathologist [facility] Sodium 139 135 - 145 mmol/L Comment:Testing performed by : [address] [address] Potassium, pl 4.1 3.3 - 4.9 mmol/L TISHA Comment:Testing performed by : [address] [address] Chloride 105 97 - 110 mmol/L TISHA Comment:Testing performed by : [address] [address] CO2 23 22 - 32 mmol/L TISHA Comment:Testing performed by : [address] [address] Anion gap 11 2 - 15 mmol/L TISHA Comment:Testing performed by : [address] [address] BUN 19 6 - 25 mg/dL TISHA Comment:Testing performed by : [address] [address] Creatinine 0.90 0.80 - 1.30 mg/dL TISHA Comment:Testing performed by : [address] [address] Glucose 108 70 - 199 mg/dL TISHA Comment: Interpretive [...] was last revised 2022. Testing performed by: [address] [address] Calcium 9.1 8.5 - 10.3 mg/dL TISHA Comment:Testing performed by : [address] [address] Bilirubin, total 0.7 0.1 - 1.2 mg/dL TISHA Comment:Testing performed by : [address] [address] Protein, pl 6.2(L) 6.5 - 8.5 g/dL TISHA Comment:Testing performed by : [address] [address] Albumin 4.1 3.5 - 5.0 g/dL TISHA Comment:Testing performed by : [address] [address] Alk phos 73 40 - 130 Units/L TISHA Comment:Testing performed by : [address] [address] ALT 10 7 - 55 Units/L TISHA Comment:Testing performed by : [address] [address] AST 16 10 - 50 Units/L TISHA Comment:Testing performed by : [address] [address] Blood 08/02/2024 2:43 PM DEPUTY SHERIFF K9 HANDLER 08/02/2024 2:48 PM DEPUTY SHERIFF K9 HANDLER us Jayne Ag NP LAB BLOOD ORDERABLES Final Result TISHA MUNOZ [address] [facility] Department [place] [address] * eGFR (07/06/2024 1:42 PM DEPUTY SHERIFF K9 HANDLER) eGFR 89 >=60 mL/min/1. 73 m2 Comment: [...] was last reviewed 2021. Testing performed by: [address] [address] Blood 07/06/2024 1:42 PM DEPUTY SHERIFF K9 HANDLER 07/06/2024 1:49 PM DEPUTY SHERIFF K9 HANDLER us Jayne Ag [employer] LAB BLOOD ORDERABLES Final Result TISHA [facility] Department of Laboratories [place], [place] [id number] * Differential, auto (07/06/2024 1:42 PM DEPUTY SHERIFF K9 HANDLER) Neutrophil abs 2.7 1.5 - 6.5 K/cumm Comment:Testing performed by : [address] [address] Imm gran abs 0.0 0.0 - 0.1 K/cumm TISHA MUNOZ Comment:Testing performed by : [address] [address] Lymphocyte abs 1.0 0.8 - 3.3 K/cumm TISHA Comment:Testing performed by : [address] [address] Monocyte abs 0.3 0.2 - 0.8 K/cumm TISHA Comment:Testing performed by : [address] [address] Eosinophil abs 0.0 0.0 - 0.5 K/cumm TISHA Comment:Testing performed by : [address] [address] Basophil abs 0.0 0.0 - 0.1 K/cumm TISHA Comment:Testing performed by : [address] [address] Neutrophil pct 66.0 % [facility] Comment: Interpretive Data Percent cell count reference ranges are not reported, since discordance with absolute values may lead to misinterpretation of CBC data. Current Interpretive Data was last revised on 2017. Testing performed by: [address] [address] Imm gran pct 0.2 % [facility] Comment: Interpretive Data Percent cell count reference ranges are not reported, since discordance with absolute values may lead to misinterpretation of CBC data. Current Interpretive Data was last revised on 2017. Testing performed by: [address] [address] Lymphocyte pct 24.0 % [facility] Comment: Interpretive Data Percent cell count reference ranges are not reported, since discordance with absolute values may lead to misinterpretation of CBC data. Current Interpretive Data was last revised on 2017. Testing performed by: [address] [address] Monocyte pct 8.3 % [facility] Comment: Interpretive Data Percent cell count reference ranges are not reported, since discordance with absolute values may lead to misinterpretation of CBC data. Current Interpretive Data was last revised on 2017. Testing performed by: [address] [address] Eosinophil pct 1.0 % TISHA Comment: Interpretive Data Percent cell count reference ranges are not reported, since discordance with absolute values may lead to misinterpretation of CBC data. Current Interpretive Data was last revised on 2017. Testing performed by: [address] [address] Basophil pct 0.5 % TISHA Comment: Interpretive Data Percent cell count reference ranges are not reported, since discordance with absolute values may lead to misinterpretation of CBC data. Current Interpretive Data was last revised on 2017. Testing performed by: [address] [address] Blood 07/06/2024 1:42 PM DEPUTY SHERIFF K9 HANDLER 07/06/2024 1:49 PM DEPUTY SHERIFF K9 HANDLER Jayne Ag [employer] LAB BLOOD ORDERABLES Final Result Performing Organization Address [facility] Co de Phone Number [place] [id number] [facility] [place] [place] [address] * (ABNORMAL) Iron profile w/ IBC (07/06/2024 1:42 PM DEPUTY SHERIFF K9 HANDLER) Iron 154(H) 50 - 150 mcg/dL Comment:Testing performed by : [address] [address] TIBC 206(L) 250 - 400 mcg/dL TISHA Comment:Testing performed by : [address] [address] Transferrin saturation 75(H) 20 - 50 % TISHA Comment:Testing performed by : [address] [address] Blood 07/06/2024 1:42 PM DEPUTY SHERIFF K9 HANDLER 07/06/2024 4:43 PM DEPUTY SHERIFF K9 HANDLER Jayne Ag [employer] LAB BLOOD ORDERABLES Final Result Performing Organization Address [facility] Co de Phone Number [facility] [address] [facility] [place] [place] [address] * (ABNORMAL) CBC with auto differential (07/06/2024 1:42 PM DEPUTY SHERIFF K9 HANDLER) WBC 4.1 3.8 - 9.9 K/cumm Comment:Testing performed by : [address] [address] Hgb 15.5 13.0 - 17.5 g/dL TISHA Comment:Testing performed by : [address] [address] Hct 42.9 38.9 - 50.3 % TISHA Comment:Testing performed by : [address] [address] Plt 252 150 - 400 K/cumm TISHA Comment:Testing performed by : [address] [address] MPV 9.7 9.1 - 12.3 fL TISHA Comment:Testing performed by : [address] [address] RBC 4.83 4.30 - 5.80 M/cumm TISHA Comment:Testing performed by : [address], [address] MCV 88.8 81.3 - 96.4 fL TISHA Comment:Testing performed by : [address] [address] MCH 32.1 27.1 - 33.3 pg TISHA Comment:Testing performed by : [address] [address] MCHC 36.1(H) 32.3 - 35.7 g/dL TISHA Comment:Testing performed by : [address], [address] RDW CV 12.5 11.1 - 14.9 % TISHA Comment:Testing performed by : [address], [address] RDW SD 40.7 35.7 - 48.1 fL TISHA Comment:Testing performed by : [address] [address] NRBC abs 0.00 0.00 - 0.01 K/cumm TISHA Comment:Testing performed by : [address], [address] Blood 07/06/2024 1:42 PM DEPUTY SHERIFF K9 HANDLER 07/06/2024 1:49 PM DEPUTY SHERIFF K9 HANDLER Jayne Imani Golec [employer] LAB BLOOD ORDERABLES Final Result TISHA [facility] [place] [address] * Ferritin (07/06/2024 1:42 PM DEPUTY SHERIFF K9 HANDLER) Pathologist [facility] Ferritin 132 30 - 400 ng/mL Comment:Testing performed by : [address] [address] Blood 07/06/2024 1:42 PM DEPUTY SHERIFF K9 HANDLER 07/06/2024 4:43 PM DEPUTY SHERIFF K9 HANDLER Jayne Diallo Travismert [employer] LAB BLOOD ORDERABLES Final Result Performing Organization Address City/[facility] Co de Phone Number TISHA [facility] [place] [address] * (ABNORMAL) Comprehensive metabolic panel (07/06/2024 1:42 PM DEPUTY SHERIFF K9 HANDLER) [facility] Sodium 145 135 - 145 mmol/L Comment:Testing performed by : [address] [address] Potassium, pl 4.2 3.3 - 4.9 mmol/L TISHA Comment:Testing performed by : [address] [address] Chloride 108 97 - 110 mmol/L TISHA Comment:Testing performed by : [address] [address] CO2 27 22 - 32 mmol/L TISHA Comment:Testing performed by : [address] [address] Anion gap 10 2 - 15 mmol/L TISHA Comment:Testing performed by : [address] [address] BUN 17 6 - 25 mg/dL TISHA Comment:Testing performed by : [address] [address] Creatinine 0.90 0.80 - 1.30 mg/dL TISHA Comment:Testing performed by : [address] [address] Glucose 115 70 - 199 mg/dL TISHA [...] was last revised 2022. Testing performed by: [address] [address] Calcium 9.1 8.5 - 10.3 mg/dL TISHA Comment:Testing performed by : [address] [address] Bilirubin, total 0.7 0.1 - 1.2 mg/dL TISHA Comment:Testing performed by : [address] [address] Protein, pl 6.4(L) 6.5 - 8.5 g/dL TISHA Comment:Testing performed by : [address] [address] Albumin 4.1 3.5 - 5.0 g/dL TISHA Comment:Testing performed by : [address] [address] Alk phos 73 40 - 130 Units/L TISHA Comment:Testing performed by : [address] [address] ALT 8 7 - 55 Units/L TISHA Comment:Testing performed by : [address] [address] AST 14 10 - 50 Units/L TISHA Comment:Testing performed by : [address] [address] Blood 07/06/2024 1:42 PM 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
--- OUTSIDE RECORDS SUMMARY | 2024-08-31 00:04 | XMS_ITS | Referral Summary ---
Author Organization [facility] Address [address] [place] [address] Phone Care Team Providers Care Leather Cutter Name Role Phone Ambrose Watkins MD Primary Care Provider + [phone] Liliya Montalvo TRAFFIC SUPERINTENDENT Unavailable [phone] Encounters Date Type Department Care Team Description 08/17/2024 Orders Only [facility] [address] [place] [address] Dia De Anda Hereditary hemochromatosis (Primary Dx) 08/17/2024 8:30 AM CDT Infusion [facility] at [address] [place] [address] Hereditary hemochromatosis (Primary Dx) 08/17/2024 8:00 AM CDT Lab [facility] at [address] [address] Hereditary hemochromatosis 08/02/2024 3:00 PM AIR TRAFFIC CONTROLLER Lab [facility] at [address] [address] Hereditary hemochromatosis 08/02/2024 Orders Only [facility] [address] [place] [address] Darling Frank 08/02/2024 Orders Only [facility] [address] [place] [address] Darling Frank Hereditary hemochromatosis (Primary Dx) 08/02/2024 3:30 PM AIR TRAFFIC CONTROLLER Infusion [facility] at [address] [place] [address] Hereditary hemochromatosis (Primary Dx) 07/19/2024 Telephone [facility] Floor [address] [place] [phone] Dia De Anda 07/19/2024 Orders Only [facility] [address] [place] [phone] Dia De Anda Hereditary hemochromatosis (Primary Dx) 07/15/2024 Telephone [facility] H[facility]ology [address] [place] [address] 6 [place] [phone] Dia De Anda 07/06/2024 2:45 PM AIR TRAFFIC CONTROLLER Infusion [facility] at [address] [place] [address] Hereditary hemochromatosis 07/06/2024 2:00 PM AIR TRAFFIC CONTROLLER Lab [facility] at [address] [address] Hereditary hemochromatosis 06/15/2024 Orders Only [facility] [address] [place] [address] 6 [place] [phone] Dia De Anda Hereditary hemochromatosis (Primary Dx) 06/13/2024 Telephone [facility] [address] [place] [address] 6 [place] [phone] Dia De Anda from Last 3 Months Allergies Active Allergy [...] on file Legal Sex Male 10:28 AM AIR TRAFFIC CONTROLLER Gender Identity Not on file Sexual Orientation Not on file Last Filed Vital Signs Vital Sign Reading Time Taken Comments Blood Pressure 172/88 08/17/2024 11:00 AM CDT Pulse 83 08/17/2024 11:00 AM CDT Temperature 36.5 C (97.7 F) 08/02/2024 2:51 PM AIR TRAFFIC CONTROLLER Respiratory Rate 18 08/17/2024 11:00 AM CDT [...] Hereditary hemochromatosis EGFR Routine 08/02/2024 2:43 PM AIR TRAFFIC CONTROLLER Hereditary hemochromatosis DIFFERENTIAL AUTO Routine 08/02/2024 2:4 3 PM AIR TRAFFIC CONTROLLER Hereditary hemochromatosis CBC WITH AUTO DIFFERENTIAL Routine 08/02/2024 2:43 PM AIR TRAFFIC CONTROLLER Hereditary hemochromatosis COMPREHENSIVE METABOLIC PANEL Routine 08/02/2024 2:43 PM AIR TRAFFIC CONTROLLER Hereditary hemochromatosis FERRITIN Routine 08/02/2024 2:43 PM AIR TRAFFIC CONTROLLER Hereditary hemochromatosis IRON PROFILE W/ IBC Routine 08/02/2024 2 :43 PM AIR TRAFFIC CONTROLLER Hereditary hemochromatosis EGFR Routine 07/06/2024 1:42 PM AIR TRAFFIC CONTROLLER Hereditary hemochromatosis DIFFERENTIAL AUTO Routine 07/06/2024 1:4 2 PM AIR TRAFFIC CONTROLLER Hereditary hemochromatosis IRON PROFILE W/ IBC Routine 07/06/2024 1 :42 PM AIR TRAFFIC CONTROLLER Hereditary hemochromatosis FERRITIN Routine 07/06/2024 1:42 PM AIR TRAFFIC CONTROLLER Hereditary hemochromatosis CBC WITH AUTO DIFFERENTIAL Routine 07/06/2024 1:42 PM AIR TRAFFIC CONTROLLER Hereditary hemochromatosis COMPREHENSIVE METABOLIC PANEL Routine 07/06/2024 1:42 PM AIR TRAFFIC CONTROLLER Hereditary hemochromatosis from Last 3 Months Results * eGFR (08/17/2024 11:01 AM CDT) eGFR 70 >=60 mL/min/1. 73 m2 Comment: [...] was last reviewed 2021. Testing performed by: [address] [address] Blood 08/17/2024 11:0 1 AM CDT 08/17/2024 11:03 AM CDT us Jayne Ag NP LAB BLOOD ORDERABLES Final Result [facility] [address] [facility] Department [place] [address] * (ABNORMAL) Differential, auto (08/17/2024 11:01 AM CDT) Neutrophil abs 5.0 1.5 - 6.5 K/cumm Comment:Testing performed by : [address] [address] Imm gran abs 0.0 0.0 - 0.1 K/cumm CERNER Comment:Testing performed by : [address] [address] Lymphocyte abs 0.7(L) 0.8 - 3.3 K/cumm C[facility]ER Comment:Testing performed by : [address] [address] Monocyte abs 0.6 0.2 - 0.8 K/cumm [facility] Comment:Testing performed by : [address], [place]., [address] Eosinophil abs 0.1 0.0 - 0.5 K/cumm [facility] Comment:Testing performed by : [address] [address] Basophil abs 0.0 0.0 - 0.1 K/cumm [facility] Comment:Testing performed by : [address] [address] Neutrophil pct 78.6 % [facility] Comment: Interpretive Data Percent cell count reference ranges are not reported, since discordance with absolute values may lead to misinterpretation of CBC data. Current Interpretive Data was last revised on 2017. Testing performed by: [address] [address] Imm gran pct 0.2 % [facility] Comment: Interpretive Data Percent cell count reference ranges are not reported, since discordance with absolute values may lead to misinterpretation of CBC data. Current Interpretive Data was last revised on 2017. Testing performed by: [address] [address] Lymphocyte pct 10.3 % [facility] Comment: Interpretive Data Percent cell count reference ranges are not reported, since discordance with absolute values may lead to misinterpretation of CBC data. Current Interpretive Data was last revised on 2017. Testing performed by: [address] [address] Monocyte pct 9.5 % [facility] Comment: Interpretive Data Percent cell count reference ranges are not reported, since discordance with absolute values may lead to misinterpretation of CBC data. Current Interpretive Data was last revised on 2017. Testing performed by: [address] [address] Eosinophil pct 1.1 % [facility] Comment: Interpretive Data Percent cell count reference ranges are not reported, since discordance with absolute values may lead to misinterpretation of CBC data. Current Interpretive Data was last revised on 2017. Testing performed by: [address] [address] Basophil pct 0.3 % [facility] Comment: Interpretive Data Percent cell count reference ranges are not reported, since discordance with absolute values may lead to misinterpretation of CBC data. Current Interpretive Data was last revised on 2017. Testing performed by: [address] [address] Blood 08/17/2024 11:0 1 AM CDT 08/17/2024 11:03 AM CDT Jayne Ag TRAFFIC SUPERINTENDENT LAB BLOOD ORDERABLES Final Result Performing Organization Address [facility] Phone Number [facility] [address] [facility] Department [place] [address] * (ABNORMAL) Iron profile w/ IBC (08/17/2024 11:01 AM CDT) [facility] Iron 113 50 - 150 mcg/dL Comment:Testing performed by : [address] [address] TIBC 218(L) 250 - 400 mcg/dL [facility] Comment:Testing performed by : [address] [address] Transferrin saturation 52(H) 20 - 50 % [facility] Comment:Testing performed by : [address] [address] Blood 08/17/2024 11:0 1 AM CDT 08/17/2024 11:39 AM CDT Jayne Ag TRAFFIC SUPERINTENDENT LAB BLOOD ORDERABLES Final Result [facility] [address] [facility] Department [place] [address] * (ABNORMAL) CBC with auto differential (08/17/2024 11:01 AM CDT) [facility] Signature WBC 6.3 3.8 - 9.9 K/cumm Comment:Testing performed by : [address] [address] Hgb 15.2 13.0 - 17.5 g/dL [facility] Comment:Testing performed by : [address] [address] Hct 42.0 38.9 - 50.3 % [facility] Comment:Testing performed by : [address] [address] Plt 204 150 - 400 K/cumm [facility] Comment:Testing performed by : [address] [address] MPV 9.9 9.1 - 12.3 fL [facility] Comment:Testing performed by : [address] [address] RBC 4.71 4.30 - 5.80 M/cumm [facility] Comment:Testing performed by : [address] [address] MCV 89.2 81.3 - 96.4 fL [facility] Comment:Testing performed by : [address] [address] MCH 32.3 27.1 - 33.3 pg [facility] Comment:Testing performed by : [address] [address] MCHC 36.2(H) 32.3 - 35.7 g/dL [facility] Comment:Testing performed by : [address] [address] RDW CV 12.6 11.1 - 14.9 % [facility]HA MUNOZ Comment:Testing performed by : [address] [address] RDW SD 41.5 35.7 - 48.1 fL [facility] Comment:Testing performed by : [address] [address] NRBC abs 0.00 0.00 - 0.01 K/cumm [facility] MUNOZ Comment:Testing performed by : [address] [address] Blood 08/17/2024 11:0 1 AM CDT 08/17/2024 11:03 AM CDT Jayne Ag TRAFFIC SUPERINTENDENT LAB BLOOD ORDERABLES Final Result Performing Organization Address [facility] Co de Phone Number TISHA [address] [place] [address] * Ferritin (08/17/2024 11:01 AM CDT) Pathologist [facility] Ferritin 83 30 - 400 ng/mL Comment:Testing performed by : [address] [address] Blood 08/17/2024 11:0 1 AM CDT 08/17/2024 11:39 AM CDT Jayne Ag TRAFFIC SUPERINTENDENT LAB BLOOD ORDERABLES Final Result Performing Organization Address [facility] de Phone Number [facility]ATO[address] [place] [address] * Comprehensive metabolic panel (08/17/2024 11:01 AM CDT) Sodium 142 135 - 145 mmol/L Comment:Testing performed by : [address] [address] Potassium, pl 3.9 3.3 - 4.9 mmol/L [facility]ISHA MUNOZ Comment:Testing performed by : [address] [address] Chloride 108 97 - 110 mmol/L [facility]HA MUNOZ Comment:Testing performed by : [address] [address] CO2 25 22 - 32 mmol/L [facility]HA MUNOZ Comment:Testing performed by : [address] [address] Anion gap 9 2 - 15 mmol/L [facility] Comment:Testing performed by : [address] [address] BUN 15 6 - 25 mg/dL [facility] Comment:Testing performed by : [address] [address] Creatinine 1.10 0.80 - 1.30 mg/dL [facility] Comment:Testing performed by : [address] [address] Glucose 137 70 - 199 mg/dL [facility] Comment: Interpretive Data Fasting glucose >/= [...] was last revised 2022. Testing performed by: [address] [address] Calcium 9.5 8.5 - 10.3 mg/dL [facility] Comment:Testing performed by : [address] [address] Bilirubin, total 1.0 0.1 - 1.2 mg/dL [facility] Comment:Testing performed by : [address] [address] Protein, pl 6.5 6.5 - 8.5 g/dL [facility] Comment:Testing performed by : [address] [address] Albumin 4.3 3.5 - 5.0 g/dL [facility] Comment:Testing performed by : [address] [address] Alk phos 74 40 - 130 Units/L [facility] Comment:Testing performed by : [address] [address] ALT 9 7 - 55 Units/L [facility] Comment:Testing performed by : [facility], [address] [place] [address]., [address] AST 15 10 - 50 Units/L [facility] Comment:Testing performed by : [facility], [address] [place] [address]., [address] Blood 08/17/2024 11:0 1 AM CDT 08/17/2024 11:03 AM CDT Jayne Ag TRAFFIC SUPERINTENDENT LAB BLOOD ORDERABLES Final Result [facility] [address] [place] [address] * eGFR (08/02/2024 2:43 PM AIR TRAFFIC CONTROLLER) eGFR 89 >=60 mL/min/1. 73 m2 Comment: [...] was last reviewed 2021. Testing performed by: [facility], [address] [place] [address]., [address] Blood 08/02/2024 2:43 PM AIR TRAFFIC CONTROLLER 08/02/2024 2:48 PM AIR TRAFFIC CONTROLLER Jayne Ag TRAFFIC SUPERINTENDENT LAB BLOOD ORDERABLES Final Result [facility] Department [place] [address] * Differential, auto (08/02/2024 2:43 PM AIR TRAFFIC CONTROLLER) Neutrophil abs 3.0 1.5 - 6.5 K/cumm Comment:Testing performed by : [address] [address] Imm gran abs 0.0 0.0 - 0.1 K/cumm [facility] Comment:Testing performed by : [address] [address] Lymphocyte abs 1.3 0.8 - 3.3 K/cumm [facility] Comment:Testing performed by : [address] [address] Monocyte abs 0.5 0.2 - 0.8 K/cumm [facility] Comment:Testing performed by : [address] [address] Eosinophil abs 0.1 0.0 - 0.5 K/cumm [facility] Comment:Testing performed by : [address] [address] Basophil abs 0.0 0.0 - 0.1 K/cumm [facility] Comment:Testing performed by : [address] [address] Neutrophil pct 61.2 % [facility] Comment: Interpretive Data Percent cell count reference ranges are not reported, since discordance with absolute values may lead to misinterpretation of CBC data. Current Interpretive Data was last revised on 2017. Testing performed by: [address] [address] Imm gran pct 0.2 % [facility] Comment: Interpretive Data Percent cell count reference ranges are not reported, since discordance with absolute values may lead to misinterpretation of CBC data. Current Interpretive Data was last revised on 2017. Testing performed by: [address] [address] Lymphocyte pct 26.5 % [facility] Comment: Interpretive Data Percent cell count reference ranges are not reported, since discordance with absolute values may lead to misinterpretation of CBC data. Current Interpretive Data was last revised on 2017. Testing performed by: [address] [address] Monocyte pct 10.1 % [facility] Comment: Interpretive Data Percent cell count reference ranges are not reported, since discordance with absolute values may lead to misinterpretation of CBC data. Current Interpretive Data was last revised on 2017. Testing performed by: [address] [address] Eosinophil pct 1.4 % [facility] Comment: Interpretive Data Percent cell count reference ranges are not reported, since discordance with absolute values may lead to misinterpretation of CBC data. Current Interpretive Data was last revised on 2017. Testing performed by: [address] [address] Basophil pct 0.6 % [facility] Comment: Interpretive Data Percent cell count reference ranges are not reported, since discordance with absolute values may lead to misinterpretation of CBC data. Current Interpretive Data was last revised on 2017. Testing performed by: [address] [address] Blood 08/02/2024 2:43 PM AIR TRAFFIC CONTROLLER 08/02/2024 2:48 PM AIR TRAFFIC CONTROLLER Jayne Ag TRAFFIC SUPERINTENDENT LAB BLOOD ORDERABLES Final Result [facility] [address] [facility] Department [place] [address] * (ABNORMAL) Iron profile w/ IBC (08/02/2024 2:43 PM AIR TRAFFIC CONTROLLER) Iron 182(H) 50 - 150 mcg/dL Comment:Testing performed by : [address] [address] TIBC 213(L) 250 - 400 mcg/dL [facility] Comment:Testing performed by : [address] [address] Transferrin saturation 85(H) 20 - 50 % [facility] Comment:Testing performed by : [address] [address] Blood 08/02/2024 2:43 PM AIR TRAFFIC CONTROLLER 08/02/2024 4:01 PM AIR TRAFFIC CONTROLLER Jayne Ag TRAFFIC SUPERINTENDENT LAB BLOOD ORDERABLES Final Result [facility] [address] [facility] Department [place] [address] * (ABNORMAL) CBC with auto differential (08/02/2024 2:43 PM AIR TRAFFIC CONTROLLER) Pathologist [facility] WBC 4.8 3.8 - 9.9 K/cumm Comment:Testing performed by : [address] [address] Hgb 14.9 13.0 - 17.5 g/dL [facility] Comment:Testing performed by : [address] [address] Hct 40.7 38.9 - 50.3 % [facility] Comment:Testing performed by : [address] [address] Plt 225 150 - 400 K/cumm [facility] Comment:Testing performed by : [address] [address] MPV 10.0 9.1 - 12.3 fL [facility] Comment:Testing performed by : [address] [address] RBC 4.61 4.30 - 5.80 M/cumm [facility] Comment:Testing performed by : [address] [address] MCV 88.3 81.3 - 96.4 fL [facility] Comment:Testing performed by : [address] [address] MCH 32.3 27.1 - 33.3 pg [facility]ISHA MUNOZ Comment:Testing performed by : [address] [address] MCHC 36.6(H) 32.3 - 35.7 g/dL [facility]HA MUNOZ Comment:Testing performed by : [address] [address] RDW CV 12.8 11.1 - 14.9 % [facility] Comment:Testing performed by : [address] [address] RDW SD 41.4 35.7 - 48.1 fL [facility] MUNOZ Comment:Testing performed by : [address] [address] NRBC abs 0.00 0.00 - 0.01 K/cumm [facility] Comment:Testing performed by : [address] [address] Blood 08/02/2024 2:43 PM AIR TRAFFIC CONTROLLER 08/02/2024 2:48 PM AIR TRAFFIC CONTROLLER Jayne Ag LAB BLOOD ORDERABLES Final Result Performing Organization Address [facility] Co de Phone Number CHATO[address] [place] [address] * Ferritin (08/02/2024 2:43 PM AIR TRAFFIC CONTROLLER) Pathologist [facility] Ferritin 98 30 - 400 ng/mL Comment:Testing performed by : [address], [address] Blood 08/02/2024 2:43 PM AIR TRAFFIC CONTROLLER 08/02/2024 4:01 PM AIR TRAFFIC CONTROLLER Jayne Ag LAB BLOOD ORDERABLES Final Result Performing Organization Address [facility] Co de Phone Number [address] [address] * (ABNORMAL) Comprehensive metabolic panel (08/02/2024 2:43 PM AIR TRAFFIC CONTROLLER) [facility] Sodium 139 135 - 145 mmol/L Comment:Testing performed by : [address] [address] Potassium, pl 4.1 3.3 - 4.9 mmol/L [facility]HA MUNOZ Comment:Testing performed by : [address], [address] Chloride 105 97 - 110 mmol/L [facility] Comment:Testing performed by : [address] [address] CO2 23 22 - 32 mmol/L [facility] Comment:Testing performed by : [address] [address] Anion gap 11 2 - 15 mmol/L [facility] Comment:Testing performed by : [address] [address] BUN 19 6 - 25 mg/dL [facility] Comment:Testing performed by : [address] [address] Creatinine 0.90 0.80 - 1.30 mg/dL [facility] Comment:Testing performed by : [address] [address] Glucose 108 70 - 199 mg/dL TISHA [...] was last revised 2022. Testing performed by: [address] [address] Calcium 9.1 8.5 - 10.3 mg/dL [facility] Comment:Testing performed by : [address] [address] Bilirubin, total 0.7 0.1 - 1.2 mg/dL [facility] Comment:Testing performed by : [address] [address] Protein, pl 6.2(L) 6.5 - 8.5 g/dL [facility] Comment:Testing performed by : [address] [address] Albumin 4.1 3.5 - 5.0 g/dL [facility] Comment:Testing performed by : [address] [address] Alk phos 73 40 - 130 Units/L [facility] Comment:Testing performed by : [address] [address] ALT 10 7 - 55 Units/L [facility] Comment:Testing performed by : [address] [address] AST 16 10 - 50 Units/L [facility] Comment:Testing performed by : [address], [address] Blood 08/02/2024 2:43 PM AIR TRAFFIC CONTROLLER 08/02/2024 2:48 PM AIR TRAFFIC CONTROLLER Jayne Ag TRAFFIC SUPERINTENDENT LAB BLOOD ORDERABLES Final Result [facility] [address] [facility] Department [place] [address] * eGFR (07/06/2024 1:42 PM AIR TRAFFIC CONTROLLER) eGFR 89 >=60 mL/min/1. 73 m2 Comment: [...] was last reviewed 2021. Testing performed by: [address], [address] Blood 07/06/2024 1:42 PM AIR TRAFFIC CONTROLLER 07/06/2024 1:49 PM AIR TRAFFIC CONTROLLER us Jayne Diallo Travismert [facility] LAB BLOOD ORDERABLES Final Result [facility] [address] [facility] Department [place] [address] * Differential, auto (07/06/2024 1:42 PM AIR TRAFFIC CONTROLLER) Neutrophil abs 2.7 1.5 - 6.5 K/cumm Comment:Testing performed by : [address] [address] Imm gran abs 0.0 0.0 - 0.1 K/cumm [facility] Comment:Testing performed by : [address] [address] Lymphocyte abs 1.0 0.8 - 3.3 K/cumm [facility] Comment:Testing performed by : [address] [address] Monocyte abs 0.3 0.2 - 0.8 K/cumm [facility] Comment:Testing performed by : [address] [address] Eosinophil abs 0.0 0.0 - 0.5 K/cumm [facility] Comment:Testing performed by : [address] [address] Basophil abs 0.0 0.0 - 0.1 K/cumm [facility] Comment:Testing performed by : [address] [address] Neutrophil pct 66.0 % [facility] Comment: Interpretive Data Percent cell count reference ranges are not reported, since discordance with absolute values may lead to misinterpretation of CBC data. Current Interpretive Data was last revised on 2017. Testing performed by: [address] [address] Imm gran pct 0.2 % [facility] Comment: Interpretive Data Percent cell count reference ranges are not reported, since discordance with absolute values may lead to misinterpretation of CBC data. Current Interpretive Data was last revised on 2017. Testing performed by: [address] [address] Lymphocyte pct 24.0 % [facility] Comment: Interpretive Data Percent cell count reference ranges are not reported, since discordance with absolute values may lead to misinterpretation of CBC data. Current Interpretive Data was last revised on 2017. Testing performed by: [address] [address] Monocyte pct 8.3 % [facility] Comment: Interpretive Data Percent cell count reference ranges are not reported, since discordance with absolute values may lead to misinterpretation of CBC data. Current Interpretive Data was last revised on 2017. Testing performed by: [address] [address] Eosinophil pct 1.0 % [facility] Comment: Interpretive Data Percent cell count reference ranges are not reported, since discordance with absolute values may lead to misinterpretation of CBC data. Current Interpretive Data was last revised on 2017. Testing performed by: [address] [address] Basophil pct 0.5 % [facility] Comment: Interpretive Data Percent cell count reference ranges are not reported, since discordance with absolute values may lead to misinterpretation of CBC data. Current Interpretive Data was last revised on 2017. Testing performed by: [address] [address] Blood 07/06/2024 1:42 PM AIR TRAFFIC CONTROLLER 07/06/2024 1:49 PM AIR TRAFFIC CONTROLLER us Jayne Ag TRAFFIC SUPERINTENDENT LAB BLOOD ORDERABLES Final Result [facility] [address] [facility] Department [place] [address] * (ABNORMAL) Iron profile w/ IBC (07/06/2024 1:42 PM AIR TRAFFIC CONTROLLER) Pathologist [facility] Iron 154(H) 50 - 150 mcg/dL Comment:Testing performed by : [address] [address] TIBC 206(L) 250 - 400 mcg/dL [facility]HA MUNOZ Comment:Testing performed by : [address] [address] Transferrin saturation 75(H) 20 - 50 % T[facility]HA MUNOZ Comment:Testing performed by : [address] [address] Blood 07/06/2024 1:42 PM AIR TRAFFIC CONTROLLER 07/06/2024 4:43 PM AIR TRAFFIC CONTROLLER Jayne Ag TRAFFIC SUPERINTENDENT LAB BLOOD ORDERABLES Final Result [facility] [address] [facility] Department of Laboratories [place], [place] [id number] * (ABNORMAL) CBC with auto differential (07/06/2024 1:42 PM AIR TRAFFIC CONTROLLER) WBC 4.1 3.8 - 9.9 K/cumm Comment:Testing performed by : [address] [address] Hgb 15.5 13.0 - 17.5 g/dL [facility]HA MUNOZ Comment:Testing performed by : [address] [address] Hct 42.9 38.9 - 50.3 % [facility] MUNOZ Comment:Testing performed by : [address] [address] Plt 252 150 - 400 K/cumm TISHA MUNOZ Comment:Testing performed by : [address] [address] MPV 9.7 9.1 - 12.3 fL [facility]HA MUNOZ Comment:Testing performed by : [address] [address] RBC 4.83 4.30 - 5.80 M/cumm TISHA MUNOZ Comment:Testing performed by : [address] [address] MCV 88.8 81.3 - 96.4 fL TISHA MUNOZ Comment:Testing performed by : [address] [address] MCH 32.1 27.1 - 33.3 pg TISHA MUNOZ Comment:Testing performed by : [address] [address] MCHC 36.1(H) 32.3 - 35.7 g/dL TISHA MUNOZ Comment:Testing performed by : [address] [address] RDW CV 12.5 11.1 - 14.9 % TISHA MUNOZ Comment:Testing performed by : [address] [address] RDW SD 40.7 35.7 - 48.1 fL TISHA MUNOZ Comment:Testing performed by : [address] [address] NRBC abs 0.00 0.00 - 0.01 K/cumm TISHA MUNOZ Comment:Testing performed by : [address] [address] Blood 07/06/2024 1:42 PM AIR TRAFFIC CONTROLLER 07/06/2024 1:49 PM AIR TRAFFIC CONTROLLER Jayne Ag TRAFFIC SUPERINTENDENT LAB BLOOD ORDERABLES Final Result Performing Organization Address City/[facility]/ZIP Co de Phone Number [address] [place] [address] * Ferritin (07/06/2024 1:42 PM AIR TRAFFIC CONTROLLER) Pathologist [facility] [place] Ferritin 132 30 - 400 ng/mL Comment:Testing performed by : [address], [address] Blood 07/06/2024 1:42 PM AIR TRAFFIC CONTROLLER 07/06/2024 4:43 PM AIR TRAFFIC CONTROLLER Jayne Ag TRAFFIC SUPERINTENDENT LAB BLOOD ORDERABLES Final Result [address] [place] [address] * (ABNORMAL) Comprehensive metabolic panel (07/06/2024 1:42 PM AIR TRAFFIC CONTROLLER) Pathologist [facility] [place] Sodium 145 135 - 145 mmol/L Comment:Testing performed by : [address] [address] Potassium, pl 4.2 3.3 - 4.9 mmol/L [facility] Comment:Testing performed by : [address] [address] Chloride 108 97 - 110 mmol/L [facility] Comment:Testing performed by : [address], [place]., [address] CO2 27 22 - 32 mmol/L [facility] Comment:Testing performed by : [address], [place]., [address] Anion gap 10 2 - 15 mmol/L [facility] Comment:Testing performed by : [address], [place]., [address] BUN 17 6 - 25 mg/dL [facility] Comment:Testing performed by : [address], [place]., [address] Creatinine 0.90 0.80 - 1.30 mg/dL [facility] Comment:Testing performed by : [address] [address] Glucose 115 70 - 199 mg/dL [facility] Comment: Interpretive Data Fasting glucose >/= [...] was last revised 2022. Testing performed by: [address] [address] Calcium 9.1 8.5 - 10.3 mg/dL [facility] Comment:Testing performed by : [address] [address] Bilirubin, total 0.7 0.1 - 1.2 mg/dL [facility] Comment:Testing performed by : [address] [address] Protein, pl 6.4(L) 6.5 - 8.5 g/dL TISHA Comment:Testing performed by : [address] [address] Albumin 4.1 3.5 - 5.0 g/dL TISHA Comment:Testing performed by : [address] [address] Alk phos 73 40 - 130 Units/L TISHA Comment:Testing performed by : [address] [address] ALT 8 7 - 55 Units/L TISHA Comment:Testing performed by : [address] [address] AST 14 10 - 50 Units/L TISHA Comment:Testing performed by : [address] [address] Blood 07/06/2024 1:42 PM AIR TRAFFIC CONTROLLER 07/06/2024 1:49 PM AIR TRAFFIC CONTROLLER Jayne Ag TRAFFIC SUPERINTENDENT LAB BLOOD ORDERABLES Final Result TISHA [address] [facility] Department [place] [address] from Last 3 [place] [address] MEDICARE [facility] Address: [address] [address] [facility] MEDICARE [facility] Address: [address] [address] [place] [address] [facility] Care Teams Leather Cutter Relationship Specialty Start Date End Date Ambrose Watkins MD PCP - General Family Medicine 05/10/18 Liliya Montalvo NP [address] [place] [address] Nurse Practitioner Medical Oncology 10/20/22
--- OUTSIDE RECORDS SUMMARY | 2024-08-31 00:04 | XMS_ITS | Clinical Summary ---
Author Organization [facility] Address [address] [address] Care Team Providers Care Pot Lining Supervisor Name Role Phone Ambrose Watkins MD Primary Care Provider [phone] Source Comments [facility],non-owned Affiliates and Associated Physician Practices is amultiple site organization consisting of ambulatory clinics and hospital sitesin [place], [place], [place] and [place]. This disclosure is being madepursuant to the Care Everywhere program and may not contain all information available regarding this patient. Last updated 18.[facility] Allergies No known active allergies Active Problems [...] complete this topic MENINGOCOCCAL (Group B) VACCINE SHARED DECISION-MAKING Aged Out No longer eligible based on patient's age to complete this topic MENINGOCOCCAL GROUPS A/C/Y/W VACCINE Aged Out No longer eligible based on patient's age to complete this topic Care Teams Pot Lining Supervisor Relationship Specialty Start Date End Date Ambrose Watkins MD [address] [place] [address] PCP - General Family Medicine 04/08/16
[2024-08-31] MEDS: LACTATED RINGERS 1,000 ML 30 ML IV CONT ×2 (10:40→15:55)
[2024-08-31] MEDS: ACETAMINOPHEN 500 MG TABLET 1000 MG PO (11:03)
[2024-08-31] MEDS: KETOROLAC 15 MG/ML VIAL (*BKC) IV PUSH (11:03)
--- NOTE | 2024-08-31 11:58 | WPDHPUPDATE1 ---
History and Physical Update Update Date/Time: 08/31/24 11:58 History and Physical has been reviewed, including an updated exam of the patient. There are NO changes in the patient's condition. Risks, benefits, and alternatives have been discussed and questions answered. Patient agrees to proceed with procedure.
--- NOTE | 2024-08-31 13:03 | P.PNAN_ITS ---
Anes - Initial Pre Proc Eval Procedure: Operation Date: 08/31/24 12:00 Proposed Procedures p Open Rotator Cuff Repair Left Shoulder with Biceps Tenodesis - Loc Nicolas MD Date/Time: 08/31/24 13:03 Surgeon: Loc Nicolas MD Pre Op Diagnosis: Complete Rot Cuff Tear Left Shoulder Patient Data Age: 73 Gender: M Height: 1.78 m Weight: 68 kg Last Vital Signs Temp 97.7 F 08/31/24 10:40 Pulse 63 08/31/24 10:40 Resp 18 08/31/24 10:40 BP 144/70 H 08/31/24 10:40 Pulse Ox 100 08/31/24 10:40 O2 Del Method Room Air 08/31/24 10:40 Allergies Allergy/AdvReac Type Severity Reaction Status Date / Time No Known Allergies Allergy Verified 08/31/24 11:56 Home Medications ?Medication ?Instructions ?Recorded ?Confirmed ?Type travoprost 0.004 % eye drops 1 drop ophthalmic (eye) QPM 06/23/19 08/18/24 History (Travatan Z) omeprazole 20 mg capsule,delayed 20 mg PO DAILY #30 caps 06/06/24 08/18/24 Rx release brimonidine 0.2 %-timolol 0.5 % 1 drp EACH EYE DAILY 08/18/24 08/18/24 History eye drops latanoprost 0.005 % eye drops 1 drp EACH EYE QPM 08/18/24 08/18/24 History multivitamin (Daily Multi-Vitamin 1 tablet PO DAILY 08/18/24 08/18/24 History tablet) oxycodone-acetaminophen 5 mg-325 1 - 2 tablet PO Q4-6H PRN pain 7 08/31/24 Rx mg tablet days #30 tabs Patient hx anesthesia problems: none Family hx anesthesia problems: none Results Review: All pre-operative results and documents have been reviewed as part of the pre- operative evaluation. [facility] Past Medical History Medical History Chronic RUQ pain Esophageal stricture Bloating BMI 21.0-21.9, adult Dysphagia History of bleeding peptic ulcer Cerebral atherosclerosis Tear of medial meniscus of right knee Surgical History Surgical History H/O knee surgery Family History Family History Mother No problems noted. Sibling No problems noted. Social History Social History Smoking packs per day: 0.5 Smoking cigarettes per day: 10.0 Years smoked: 2 Smoking pack-years: 1.00 Smoking status: Former smoker Tobacco type: cigarettes Second hand tobacco smoke exposure: No Smoking end date: 06/08/89 Alcohol intake: current Drinks per week: 1 Substance use: never Substance use type: does not use Do You Feel Safe in your Home?: Yes Lack of Transportation: No Lack of Food: Never True Current Housing: I Have Housing Concerned About Future Housing: No Difficulty Paying Gas/Electric Bills: No Difficulty Paying for Meds: No Currently Unemployed: No Education: Bachelor's Degree Difficulty w/ Childcare or Family Care: No Living arrangements: with family Occupation/Education: retired 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 Ex smoker, quit . Full discussion of GA, poss post op ISB w pt and his , they understand and wish to proceed. Informed Consent: The patient's anesthetic plan and its attendant risks and benefits were discu ssed with the patient/family/POA. Questions were solicited and answers provided to the satisfaction of the patient/family/POA.
[2024-08-31] MEDS: ceFAZolin 2 GM/D5W 50 ML 2 GM/50 ML BAG IVPB (13:08)
[2024-08-31] MEDS: BUPIVACAINE/EPINEPHRINE 0.5% 50 ML VIAL 30 ML INFILTRATE (13:08)
--- NOTE | 2024-08-31 16:35 | W.PM.PROC2 ---
Procedure Note - Detailed Date of Procedure 08/31/24 Pre-op Diagnosis Complete Rot Cuff Tear Left Shoulder Post-op Diagnosis Other (1. Large chronic rotator cuff tear including the subscapularis and supraspinatus 2. Biceps tendinosis with displacement) Procedure Performed 1. Open rotator cuff repair left shoulder including subscapularis and supraspinatus 2. Open biceps tenodesis Surgeon Loc Nicolas MD Barrel Painter Yue Brower PA-C Anesthesia General Findings Large retracted tear of the anterior superior rotator cuff including the majority of the tendinous supraspinatus as well as the supraspinatus. Displaced biceps medially. Description of Procedure Preoperative antibiotics were given. A general anesthetic was administered. The patient was carefully placed in the beach chair position. A longitudinal incision was created over the deltopectoral interval. Careful dissection was brought down. The cephalic vein was retracted medially and preserved. Bursal tissue was excised. The subscapularis was completely torn and retracted. There was small tear in the central supraspinatus with some of the intact fibers anteriorly there was a thick band of cuff tissue and rotator interval tissue that was retracted. After clearly identifying the tissue planes and fraying of the subscapularis, the tendon was sequentially repaired through bone tunnels. Three bone tunnels were placed anteriorly with multiple sutures into the subscapularis and the anterior supraspinatus. The sutured limbs were utilized to create a biceps tenodesis with multiple suture passes. The anterior supraspinatus was repaired through 1 of the tunnels and the more central supraspinatus/infraspinatus tissue defect was repaired with another bone tunnel and 3 sutures. A combination of Ethibond and suture tapes was utilized. There was a small anterolateral spur that was treated with the bur and the rasp. There were no complications. Wound was closed in layers with interrupted and running suture. Absorbable suture followed by Steri-Strips placed on the skin. Sterile bulky dressing with a sling. Patient extubated and brought to the recovery room in stable condition. Estimated Blood Loss 20 Drains No Packing No Pathology None sent Complications No immediate complications Condition Stable Disposition PACU [facility] Billing Surgery - Charge Forward: Surgery Billing
[2024-08-31] MEDS: ONDANSETRON INJ 4 MG/2 ML VIAL IV PUSH (17:05)
--- NOTE | 2024-08-31 17:29 | SUR.PHASEII ---
Melissa Gama CRNA contacted - pt still nauseated after ordered Zofran. New orders for RN to give 12.5mg Benadryl IVP. Can repeat once up to 25mg IVP.
[2024-08-31] MEDS: diphenhydrAMINE HCl INJ 50 MG/ML VIAL 12.5 MG IV PUSH (17:37)
== END 2024-08-31 18:23 | disposition home or self-care (01) ==
PROVIDERS: Visit Provider Orthopaedic Surgery
PROC: (CPT 23420; principal; 2024-08-31 12:00)
DX: M75.122 Complete rotator cuff tear or rupture of left shoulder, not specified as traumatic (principal); M70.22 Olecranon bursitis, left elbow; M17.11 Unilateral primary osteoarthritis, right knee; I67.2 Cerebral atherosclerosis; W10.9XXA Fall (on) (from) unspecified stairs and steps, initial encounter; Z79.891 Long term (current) use of opiate analgesic; Z98.890 Other specified postprocedural states; Z87.11 Personal history of peptic ulcer disease; Z87.891 Personal history of nicotine dependence; Z87.19 Personal history of other diseases of the digestive system
CPT/HCPCS: 23410; 23430; A4565; A9270; J0690; J1100; J1200; J1885; J2003; J2405; J2704; J3010; J7120

== ENCOUNTER 2024-12-22 07:21 | Outpatient (CLI) | payer MEDICARE, BC, SELFPAY ==
--- OUTSIDE RECORDS SUMMARY | 2024-12-22 07:24 | XMS_ITS | Clinical Summary ---
Author Organization [facility] Address [address] [place] [address] Care Team Providers Care Nuclear Pharmacist Name Role Phone Ambrose Watkins MD Primary Care Provider [phone] Source Comments [facility],non-owned Affiliates and Associated Physician Practices is amultiple site organization consisting of ambulatory clinics and hospital sitesin [place], [place], [place] and [place]. This disclosure is being madepursuant to the Care Everywhere program and may not contain all information available regarding this patient. Last updated 18.[facility] Allergies No known active allergies Active Problems Problem Noted Date Diagnosed Date Need for prophylactic vaccin ation and inoculation against influenza 05/05/2021 Immunizations Immunization Administration Dates Next Due INFLUENZA VACCINE, ADJUVANTE [...] at Not on file Legal Sex Male 2:27 PM CDT Gender Identity Not on file Sexual Orientation Not on file Plan of Treatment Health Maintenance Due Date Last Done Comments HEPATITIS C SCREENING 10/12/1966 PNEUMOCOCCAL VACCINE 50+ (1 of 1 - PCV) 1998 ZOSTER VACCINE (1 of 2) 1998 Respiratory Syncytial Virus (RSV) Vaccine Pt: or over 60 yrs (1 - 1-dose 75+ series) 10/17/2023 COVID-19 VACCINE ( season) 2024 04/09/2021, 09/04/2020, 08/28/2020, Additional history exists DEPRESSION SCREENING 06/08/2024 INFLUENZA VACCINE (#1) 2025 , 04/14/2019, 04/19/2018, Additional history exists DTAP/TDAP/TD VACCINES (2 - Td or Tdap) [...] on patient's age to complete [place] [address] [facility] Address: [address] [place] [address] MEDICARE Member Subscriber Plan / Payer (Ef fective 2013-Present) Name:Suhail Elise Member ID:[id number] Relation to Subscriber:Self Name:Suhail Elise Subscriber ID:[id number] Payer ID:Not on file Group ID:Not on file Type:Medicare Address: [facility] [address] [phone] Care Teams Nuclear Pharmacist Relationship Specialty Start Date End Date Ambrose Watkins MD [address] [place] [address] PCP - General Family Medicine 04/08/16
--- OUTSIDE RECORDS SUMMARY | 2024-12-22 07:24 | XMS_ITS | Continuity of Care Document ---
Author Organization [facility] Address [address] [place] [address] [place] [address] Phone Care Team Providers Care Sales Marketing Coordinator Name Role Phone Vinay Paulino DO Unavailable Unavailable Advance Directives Directive Yes / No Effective Date File Name No Information Encounters Encounter Description Practice Location Reason(s) For Visit Diagnoses Date Provider Providers Copied on Encounter [facility], [id number] [place] [address] [address], [place], [place], [id number], [place] tel:[phone] [facility] No Information [place]. [address] [facility], [place], [address], [place]. tel: [phone] Family History Family Member Type Diagnosis Age At Onset No Information Payers Payer name Insurance type Covered democrat ID Authoriza tion(s) [facility] [id number] Social History Type Description Quantity Date Captured [...]
--- OUTSIDE RECORDS SUMMARY | 2024-12-22 07:24 | XMS_ITS | Clinical Summary ---
Author Organization [facility] Address [address] [place] [address] Phone Care Team Providers Care Core Finisher Name Role Phone Ambrose Watkins MD Primary Care Provider + [phone] Liliya Montalvo CUT FILE CLERK Unavailable [phone] Allergies Active Allergy Reactions Criticality Noted [...] Encounters Date Type Department Care Team Description 11/02/2024 1:30 PM CDT Infusion [facility] at [address] [address] Hereditary hemochromatosis (Primary Dx) 11/02/2024 1:00 PM CDT Office Visit [facility] Hematology [address] [place] [phone] Jayne Ag NP Hereditary hemochromatosis (Primary Dx) 11/02/2024 12:30 PM CDT Lab [facility] at [address] [address] Hereditary hemochromatosis from Last 3 Months Immunizations Immunization Administration [...] on file 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 Gender Identity Not on file Sexual Orientation Not on file Obstetrics History Last Filed Vital Signs Vital Sign Reading Time Taken Comments Blood Pressure 127/71 11/02/2024 2:00 PM CDT Pulse 75 11/02/2024 12:47 PM CDT Temperature 36.3 C (97.4 F) 11/02/2024 12:47 PM CDT Respiratory Rate 16 11/02/2024 12:47 PM CDT Oxygen Saturation 98% 11/02/2024 12:47 PM CDT Inhaled Oxygen Concentration - - Weight 69.5 kg (153 lb 3.2 oz) 11/02/2024 12:47 PM CDT Height 177 cm (5' 9.69) 11/02/2024 12:47 PM CDT Body Mass Index 22.18 11/02/2024 12:47 PM CDT Plan of Treatment Health Maintenance Due Date Last Done Comments Depression Screening 1948 Fall Risk Assessment 1948 Hepatitis C Screening 1948 Hepatitis B Screening 1966 Abdominal Aortic Aneurysm (A AA) Screen 2013 Well Visit 65+ 2013 Zoster Vaccine (2 of 3) 06/15/2017 04/20/2017, 04/02 Pneumococcal vaccine 65+ (2 of 2 - PCV) 06/11/2019 06/11/2018 Covid-19 Vaccine ( - 2023-2 5 season) 2024 04/09/2022, 03/10/2022, 12/16/2021, Additional history exists Influenza Vaccine (Season Ended) 2025 02/29/2020, 04/14/2019, 04/19/2018, Additional history exists DTaP/Tdap/Td Vaccine (2 - Td or Tdap) 07/28/2029 07/28/2019 Procedures Procedure Name Priority Date/Time Associated Diagnosis Comments EGFR Routine 11/02/2024 12:19 PM CDT Hereditary hemochromatosis DIFFERENTIAL AUTO Routine 11/02/2024 12: 19 PM CDT Hereditary hemochromatosis [id number], TUMOR MARKER Routine 11/02/2024 12:19 PM CDT Hereditary hemochromatosis RETICULOCYTES Routine 11/02/2024 12:19 PM CDT Hereditary hemochromatosis IRON PROFILE W/ IBC Routine 11/02/2024 1 2:19 PM CDT Hereditary hemochromatosis FERRITIN Routine 11/02/2024 12:19 PM CDT Hereditary hemochromatosis COMPREHENSIVE METABOLIC PANEL Routine 11/02/2024 12:19 PM CDT Hereditary hemochromatosis CBC WITH AUTO DIFFERENTIAL Routine 11/02/2024 12:19 PM CDT Hereditary hemochromatosis from Last 3 Months Results * eGFR (11/02/2024 12:19 PM CDT) eGFR 78 >=60 mL/min/1. 73 m2 Comment: Interpretive Data [...] was last reviewed 2021. Testing performed by: [address] [address] Blood 11/02/2024 12:1 9 PM CDT 11/02/2024 12:27 PM CDT us Jayne Ag NP LAB BLOOD ORDERABLES Final Result Performing Organization Address City/State/[facility] Co de Phone Number TISHA [address] [facility] Department [place] [address] * Differential, auto (11/02/2024 12:19 PM CDT) Neutrophil abs 2.63 1.50 - 6.50 K/cumm Comment:Testing performed by : [address] [address] Imm gran abs 0.01 0.00 - 0.10 K/cumm TISHA MUNOZ Comment:Testing performed by : [address] [address] Lymphocyte abs 0.92 0.80 - 3.30 K/cumm [facility] Comment:Testing performed by : [address], [place]., [address] Monocyte abs 0.33 0.20 - 0.80 K/cumm [facility] Comment:Testing performed by : [address], [place]., [address] Eosinophil abs 0.07 0.00 - 0.50 K/cumm [facility] Comment:Testing performed by : [address], [place]., [address] Basophil abs 0.03 0.00 - 0.10 K/cumm [facility] Comment:Testing performed by : [address] [address] Neutrophil pct 65.7 % [facility] Comment: Interpretive Data Percent cell count reference ranges are not reported, since discordance with absolute values may lead to misinterpretation of CBC data. Current Interpretive Data was last revised on 2017. Testing performed by: [address] [address] Imm gran pct 0.3 % [facility] Comment: Interpretive Data Percent cell count reference ranges are not reported, since discordance with absolute values may lead to misinterpretation of CBC data. Current Interpretive Data was last revised on 2017. Testing performed by: [address] [address] Lymphocyte pct 23.1 % [facility] Comment: Interpretive Data Percent cell count reference ranges are not reported, since discordance with absolute values may lead to misinterpretation of CBC data. Current Interpretive Data was last revised on 2017. Testing performed by: [address] [address] Monocyte pct 8.3 % [facility] Comment: Interpretive Data Percent cell count reference ranges are not reported, since discordance with absolute values may lead to misinterpretation of CBC data. Current Interpretive Data was last revised on 2017. Testing performed by: [address] [address] Eosinophil pct 1.8 % [facility] Comment: Interpretive Data Percent cell count reference ranges are not reported, since discordance with absolute values may lead to misinterpretation of CBC data. Current Interpretive Data was last revised on 2017. Testing performed by: [address] [address] Basophil pct 0.8 % TISHA MUNOZ Comment: Interpretive Data Percent cell count reference ranges are not reported, since discordance with absolute values may lead to misinterpretation of CBC data. Current Interpretive Data was last revised on 2017. Testing performed by: [address] [address] Blood 11/02/2024 12:1 9 PM CDT 11/02/2024 12:27 PM CDT Jayne Ag LAB BLOOD ORDERABLES Final Result Performing Organization Address [facility] de Phone Number [address] [employer] [place] [address] * (ABNORMAL) Iron profile w/ IBC (11/02/2024 12:19 PM CDT) Pathologist [facility] Iron 223(H) 50 - 150 mcg/dL Comment:Testing performed by : [address] [address] TIBC <240(L) 250 - 400 mcg/dL TISHA MUNOZ Comment:Testing performed by : [address] [address] Transferrin saturation >93(H) 20 - 50 % TISHA Comment:Testing performed by : [address] [address] Blood 11/02/2024 12:1 9 PM CDT 11/02/2024 1:43 PM CDT Jayne Ag NP LAB BLOOD ORDERABLES Final Result Performing Organization Address [facility] de Phone Number [address] [place] [address] * CBC with auto differential (11/02/2024 12:19 PM CDT) WBC 3.99 3.80 - 9.90 K/cumm Comment:Testing performed by : [address] [address] Hgb 15.1 13.0 - 17.5 g/dL TISHA Comment:Testing performed by : [address] [address] Hct 42.4 38.9 - 50.3 % TISHA Comment:Testing performed by : [address] [address] Plt 267 150 - 400 K/cumm TISHA Comment:Testing performed by : [address] [address] MPV 9.8 9.1 - 12.3 fL TISHA Comment:Testing performed by : [address] [address] RBC 4.96 4.30 - 5.80 M/cumm TISHA Comment:Testing performed by : [address] [address] MCV 85.5 81.3 - 96.4 fL [facility] Comment:Testing performed by : [address] [address] MCH 30.4 27.1 - 33.3 pg TISHA Comment:Testing performed by : [address] [address] MCHC 35.6 32.3 - 35.7 g/dL TISHA Comment:Testing performed by : [address] [address] RDW CV 12.4 11.1 - 14.9 % TISHA Comment:Testing performed by : [address] [address] RDW SD 38.5 35.7 - 48.1 fL TISHA Comment:Testing performed by : [address] [address] NRBC abs 0.00 0.00 - 0.01 K/cumm TISHA Comment:Testing performed by : [address] [address] ANC Prelim 2.63 1.50 - 6.50 K/cumm TISHA Comment: Interpretive Data The rapid ANC is a preliminary automated count and may vary from the final ANC (Neut Abs) reported in the WBC differential that follows. Current interpretive data was last revised 2024. Testing performed by: [address] [address] Blood 11/02/2024 12:1 9 PM CDT 11/02/2024 12:27 PM CDT Jayne Ag NP LAB BLOOD ORDERABLES Final Result TISHA [address] [facility] Department [place] [address] * Qawmd-7-Vjquiridlqz, Tumor Marker (11/02/2024 12:19 PM CDT) alpha Fetoprotein 1.9 0.0 - 8.3 ng/mL Comment: Interpretive Data [...] 2018;57:[id number] Kieran Butt et al. Clin Chem 2014;[id number]. Current interpretive data was last revised 2022. Testing performed by: [address] [address] Blood 11/02/2024 12:1 9 PM CDT 11/02/2024 1:43 PM CDT Jayne Imani Golec CUT FILE CLERK LAB BLOOD ORDERABLES Final Result [address] [place] [address] * Reticulocyte Count (11/02/2024 12:19 PM CDT) [facility] Retics, absolute 34 20 - 87 K/cumm Comment:Testing performed by : [address] [address] Retics 0.7 0.4 - 2.9 % TISHA Comment:Testing performed by : [address] [address] Reticulocyte Hgb 35.5 30.5 - 38.0 pg TISHA Comment:Testing performed by : [address] [address] Blood 11/02/2024 12:1 9 PM CDT 11/02/2024 12:27 PM CDT Jayne Ag CUT FILE CLERK LAB BLOOD ORDERABLES Final Result Performing Organization Address [facility] Co de Phone Number [address] [place] [address] * Ferritin (11/02/2024 12:19 PM CDT) [facility] Ferritin 69 30 - 400 ng/mL Comment:Testing performed by : [address] [address] Blood 11/02/2024 12:1 9 PM CDT 11/02/2024 1:43 PM CDT Jayne Ag CUT FILE CLERK LAB BLOOD ORDERABLES Final Result [address] [address] * Comprehensive metabolic panel (11/02/2024 12:19 PM CDT) [facility] Sodium 142 135 - 145 mmol/L Comment:Testing performed by : [address] [address] Potassium, pl 4.0 3.3 - 4.9 mmol/L TISHA Comment:Testing performed by : [address] [address] Chloride 105 97 - 110 mmol/L TISHA Comment:Testing performed by : [address], [place]., [address] CO2 27 22 - 32 mmol/L TISHA Comment:Testing performed by : [address], [place]., [address] Anion gap 10 2 - 15 mmol/L TISHA Comment:Testing performed by : [address] [address] BUN 15 6 - 25 mg/dL TISHA Comment:Testing performed by : [address], [place]., [address] Creatinine 1.00 0.80 - 1.30 mg/dL TISHA Comment:Testing performed by : [address] [address] Glucose 109 70 - 199 mg/dL [facility] Comment: Interpretive Data Fasting glucose >/= 126 [...] was last revised 2022. Testing performed by: [address] [address] Calcium 9.5 8.5 - 10.3 mg/dL TISHA Comment:Testing performed by : [address] [address] Bilirubin, total 0.7 0.1 - 1.2 mg/dL TISHA Comment:Testing performed by : [address], [place]., [address] Protein, pl 6.6 6.5 - 8.5 g/dL TISHA MUNOZ Comment:Testing performed by : [address] [address] Albumin 4.3 3.5 - 5.0 g/dL TISHA MUNOZ Comment:Testing performed by : [address] [address] Alk phos 77 40 - 130 Units/L TISHA Comment:Testing performed by : [address] [address] ALT 9 7 - 55 Units/L TISHA Comment:Testing performed by : [address] [address] AST 15 10 - 50 Units/L TISHA Comment:Testing performed by : [address] [address] Blood 11/02/2024 12:1 9 PM CDT 11/02/2024 12:27 PM CDT Jayne Ag NP LAB BLOOD ORDERABLES Final Result TISHA [address] [facility] Department [place] [address] from Last 3 [place] [address] MEDICARE [facility] MEDICARE [facility] Care Teams Core Finisher Relationship Specialty Start Date End Date Ambrose Watkins MD PCP - General Family Medicine 05/10/18 Liliya Montalvo NP [address] [place] [address] Nurse Practitioner Medical Oncology 10/20/22
--- OUTSIDE RECORDS SUMMARY | 2024-12-22 07:24 | XMS_ITS | Referral Summary ---
Author Organization [facility] Address [address] [place] [address] Phone Care Team Providers Care Oyster Worker Name Role Phone Ambrose Watkins MD Primary Care Provider + [phone] Liliya Montalvo STUDY COORDINATOR Unavailable [phone] Encounters Date Type Department Care Team Description 11/02/2024 1:30 PM CDT Infusion [facility] at [address] [phone] Hereditary hemochromatosis (Primary Dx) 11/02/2024 12:30 PM CDT Lab [facility] at [address] [address] Hereditary hemochromatosis 11/02/2024 1:00 PM CDT Office Visit 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 Testing performed by: [address] [address] Blood 11/02/2024 12:1 9 PM CDT 11/02/2024 12:27 PM CDT Jayne Ag NP LAB BLOOD ORDERABLES Final Result [facility] [address] [facility] Department [place] [address] * Differential, auto (11/02/2024 12:19 PM CDT) Neutrophil abs 2.63 1.50 - 6.50 K/cumm Comment:Testing performed by : [address] [address] Imm gran abs 0.01 0.00 - 0.10 K/cumm TISHA Comment:Testing performed by : [address] [address] Lymphocyte abs 0.92 0.80 - 3.30 K/cumm TISHA Comment:Testing performed by : [address] [address] Monocyte abs 0.33 0.20 - 0.80 K/cumm TISHA Comment:Testing performed by : [address] [address] Eosinophil abs 0.07 0.00 - 0.50 K/cumm TISHA Comment:Testing performed by : [address] [address] Basophil abs 0.03 0.00 - 0.10 K/cumm TISHA Comment:Testing performed by : [address] [address] Neutrophil pct 65.7 % TISHA Comment: Interpretive Data Percent cell count reference ranges are not reported, since discordance with absolute values may lead to misinterpretation of CBC data. Current Interpretive Data was last revised on 2017. Testing performed by: [address] [address] Imm gran pct 0.3 % [facility] Comment: Interpretive Data Percent cell count reference ranges are not reported, since discordance with absolute values may lead to misinterpretation of CBC data. Current Interpretive Data was last revised on 2017. Testing performed by: [address] [address] Lymphocyte pct 23.1 % [facility] Comment: Interpretive Data Percent cell count reference ranges are not reported, since discordance with absolute values may lead to misinterpretation of CBC data. Current Interpretive Data was last revised on 2017. Testing performed by: [address] [address] Monocyte pct 8.3 % [facility] Comment: Interpretive Data Percent cell count reference ranges are not reported, since discordance with absolute values may lead to misinterpretation of CBC data. Current Interpretive Data was last revised on 2017. Testing performed by: [address] [address] Eosinophil pct 1.8 % [facility] Comment: Interpretive Data Percent cell count reference ranges are not reported, since discordance with absolute values may lead to misinterpretation of CBC data. Current Interpretive Data was last revised on 2017. Testing performed by: [address] [address] Basophil pct 0.8 % [facility] Comment: Interpretive Data Percent cell count reference ranges are not reported, since discordance with absolute values may lead to misinterpretation of CBC data. Current Interpretive Data was last revised on 2017. Testing performed by: [address] [address] Blood 11/02/2024 12:1 9 PM CDT 11/02/2024 12:27 PM CDT us Jayne Ag NP LAB BLOOD ORDERABLES Final Result TISHA [address] [facility] Department [place] [address] * (ABNORMAL) Iron profile w/ IBC (11/02/2024 12:19 PM CDT) Iron 223(H) 50 - 150 mcg/dL Comment:Testing performed by : [address] [address] TIBC <240(L) 250 - 400 mcg/dL TISHA MUNOZ Comment:Testing performed by : [address] [address] Transferrin saturation >93(H) 20 - 50 % TISHA MUNOZ Comment:Testing performed by : [address] [address] Blood 11/02/2024 12:1 9 PM CDT 11/02/2024 1:43 PM CDT Jayne Ag STUDY COORDINATOR LAB BLOOD ORDERABLES Final Result TISHA [address] [facility] Department [place] [address] * CBC with auto differential (11/02/2024 12:19 PM CDT) WBC 3.99 3.80 - 9.90 K/cumm Comment:Testing performed by : [address] [address] Hgb 15.1 13.0 - 17.5 g/dL TISHA MUNOZ Comment:Testing performed by : [address] [address] Hct 42.4 38.9 - 50.3 % TISHA MUNOZ Comment:Testing performed by : [address] [address] Plt 267 150 - 400 K/cumm TISHA MUNOZ Comment:Testing performed by : [address] [address] MPV 9.8 9.1 - 12.3 fL TISHA MUNOZ Comment:Testing performed by : [address] [address] RBC 4.96 4.30 - 5.80 M/cumm TISHA MUNOZ Comment:Testing performed by : [address] [address] MCV 85.5 81.3 - 96.4 fL TISHA MUNOZ Comment:Testing performed by : [address] [address] MCH 30.4 27.1 - 33.3 pg TISHA MUNOZ Comment:Testing performed by : [address] [address] MCHC 35.6 32.3 - 35.7 g/dL TISHA MUNOZ Comment:Testing performed by : [address] [address] RDW CV 12.4 11.1 - 14.9 % TISHA MUNOZ Comment:Testing performed by : [address] [address] RDW SD 38.5 35.7 - 48.1 fL TISHA MUNOZ Comment:Testing performed by : [address] [address] NRBC abs 0.00 0.00 - 0.01 K/cumm TISHA Comment:Testing performed by : [address] [address] ANC Prelim 2.63 1.50 - 6.50 K/cumm TISHA Comment: Interpretive Data The rapid ANC is a preliminary automated count and may vary from the final ANC (Neut Abs) reported in the WBC differential that follows. Current interpretive data was last revised 2024. Testing performed by: [address] [address] Blood 11/02/2024 12:1 9 PM CDT 11/02/2024 12:27 PM CDT us Jayne Ag NP LAB BLOOD ORDERABLES Final Result TISHA MUNOZ [address] [facility] Department of Laboratories [place], [place] [id number] * Erpvb-0-Pjwktrymucm, Tumor Marker (11/02/2024 12:19 PM CDT) alpha [...] >1 year 0.0 8.3 ng/ml References Jewel Piper. et al. J. Ped Surg 1978;13:155-156 Mehreen Marcano et al. Clin Chem Lab Med 2018;[id number]:[id number] Kieran Butt et al. Clin Chem 2014;[id number]. Current interpretive data was last revised 2022. Testing performed by: [address] [address] Blood 11/02/2024 12:1 9 PM CDT 11/02/2024 1:43 PM CDT Jayne Ag STUDY COORDINATOR LAB BLOOD ORDERABLES Final Result TISHA [address] [facility] Department [place] [address] * Reticulocyte Count (11/02/2024 12:19 PM CDT) Retics, absolute 34 20 - 87 K/cumm Comment:Testing performed by : [address] [address] Retics 0.7 0.4 - 2.9 % TISHA MUNOZ Comment:Testing performed by : [address] [address] Reticulocyte Hgb 35.5 30.5 - 38.0 pg TISHA MUNOZ Comment:Testing performed by : [address] [address] Blood 11/02/2024 12:1 9 PM CDT 11/02/2024 12:27 PM CDT Jayne Ag STUDY COORDINATOR LAB BLOOD ORDERABLES Final Result Performing Organization Address City/[facility]/ZIP Co de Phone Number TISHA [address] [place] [address] * Ferritin (11/02/2024 12:19 PM CDT) Ferritin 69 30 - 400 ng/mL Comment:Testing performed by : [address] [address] Blood 11/02/2024 12:1 9 PM CDT 11/02/2024 1:43 PM CDT Jayne Ag STUDY COORDINATOR LAB BLOOD ORDERABLES Final Result Performing Organization Address [facility] de Phone Number TISHA [address] [address] * Comprehensive metabolic panel (11/02/2024 12:19 PM CDT) Pathologist [facility] Sodium 142 135 - 145 mmol/L Comment:Testing performed by : [address] [address] Potassium, pl 4.0 3.3 - 4.9 mmol/L TISHA Comment:Testing performed by : [address] [address] Chloride 105 97 - 110 mmol/L TISHA Comment:Testing performed by : [address] [address] CO2 27 22 - 32 mmol/L TISHA Comment:Testing performed by : [address] [address] Anion gap 10 2 - 15 mmol/L TISHA Comment:Testing performed by : [address] [address] BUN 15 6 - 25 mg/dL TISHA Comment:Testing performed by : [address] [address] Creatinine 1.00 0.80 - 1.30 mg/dL TISHA Comment:Testing performed by : [address] [address] Glucose 109 70 - 199 mg/dL TISHA Comment: Interpretive [...] was last revised 2022. Testing performed by: [address] [address] Calcium 9.5 8.5 - 10.3 mg/dL TISHA Comment:Testing performed by : [address] [address] Bilirubin, total 0.7 0.1 - 1.2 mg/dL TISHA Comment:Testing performed by : [address] [address] Protein, pl 6.6 6.5 - 8.5 g/dL TISHA Comment:Testing performed by : [address] [address] Albumin 4.3 3.5 - 5.0 g/dL TISHA Comment:Testing performed by : [address] [address] Alk phos 77 40 - 130 Units/L TISHA Comment:Testing performed by : [address] [address] ALT 9 7 - 55 Units/L [facility] Comment:Testing performed by : [address] [address] AST 15 10 - 50 Units/L TISHA Comment:Testing performed by : [address] [address] Blood 11/02/2024 12:1 9 PM CDT 11/02/2024 12:27 PM CDT Jayne Ag STUDY COORDINATOR LAB BLOOD ORDERABLES Final Result Performing Organization Address City/State/ZIP Co [place] Phone Number [facility] [address] [facility] [place] [place] [address] from Last 3 Months Insurance MEDICARE [facility] MEDICARE [facility] Care Teams Oyster Worker Relationship Specialty Start Date End Date Ambrose Watkins MD PCP - General Family Medicine 05/10/18 Liliya Montalvo, SAMIA [address] [place] [phone] Nurse Practitioner Medical Oncology 10/20/22
[2024-12-22 07:55] LABS: Hematocrit 45.8 % (42.0-52.0); Hemoglobin 15.8 g/dL (14.0-18.0); Immature Granulocyte Percent A 0.2 % (0-0.5); Lymphocytes Absolute Auto 1.29 K/mm3 (0.9-3.2); Mean Corpuscular HGB Conc 34.5 g/dl (32-36); Mean Corpuscular Hemoglobin 30.4 pg (26-34); Mean Corpuscular Volume 88.2 fl (80-100); Nucleated Red Blood Cells Absolute Auto 0.000 K/mm3 (0.0-0.012); Nucleated Red Blood Cells Perc 0.0 % (0.0-0.2); Platelet Count Result 228 k/mm3 (150-375); Red Blood Count 5.19 M/mm3 (4.6-6.20); White Blood Count 4.5 K/mm3 (4.5-10.0)
[2024-12-22 08:18] LABS: Alanine Aminotransferase 14 U/L (6-50); Albumin Level 4.1 g/dL (3.5-5.1); Alkaline Phosphatase 52 U/L (38-126); Anion Gap 6 mmol/L (4-12); Aspartate Amino Transferase 27 U/L (17-59); Bilirubin,Total 1.0 mg/dL (0.2-1.3); Blood Urea Nitrogen 19 mg/dL (9-20); Calcium 9.2 mg/dL (8.4-10.2); Carbon Dioxide 25 mmol/L (22-30); Chloride 108 mmol/L (98-107); Cholesterol 168 mg/dL (0-200); Estimated Glomerular Filt Rate > 60; Glucose 97 mg/dL (65-110); HDL Direct 47 mg/dL; Potassium 4.2 mmol/L (3.4-5.0); Sodium 139 mmol/L (137-145); Total Protein 6.7 g/dL (6.3-8.2); Triglycerides 69 mg/dL (<150)
[2024-12-22 09:02] LABS: Prostate Specific Antigen 4.1 ng/mL (< OR = 4.0)
[2024-12-22 09:38] LABS: Vitamin B12 295.0 pg/mL (239-931)
[2024-12-22 10:32] LABS: Iron 122 ug/dL (49-181)
[2024-12-22 10:36] LABS: Ferritin 19.70 ng/mL (11.1-264)
[2024-12-22 10:41] LABS: Percent Iron Saturation 47 % (20-50)
== END 2024-12-22 07:22 | disposition home or self-care (01) ==
LOC: ANHLAB 07:23
PROVIDERS: PCP Family Medicine
DX: E78.5 Hyperlipidemia, unspecified (principal); Z87.11 Personal history of peptic ulcer disease; R97.20 Elevated prostate specific antigen [PSA]; R20.0 Anesthesia of skin; R20.2 Paresthesia of skin; E83.119 Hemochromatosis, unspecified; E55.9 Vitamin D deficiency, unspecified; Z12.5 Encounter for screening for malignant neoplasm of prostate
CPT/HCPCS: 36415; 80053; 80061; 82306; 82607; 82728; 82746; 83540; 83550; 84153; 84207; 85025; G0103

== ENCOUNTER 2025-01-02 12:30 | Outpatient (RCR) | payer MEDICARE, BC, SELFPAY ==
--- NOTE | 2024-10-13 16:25 | OPREHPOC ---
Outpatient Therapy Plan of Care This is a Multidisciplinary Plan of Care that may contain components documented by all disciplines (PT, OT, and ST.) PT Problem 1 PT Problem #1 Knowledge Deficit PT Goal 1 Goal / Goal Update [place] with HEP Target Visit 4 PT Goal 2 Goal / Goal Update Report no pain greater than 2/10 at worst Target Visit 8 PT Problem 2 PT Problem #2 Edema PT Goal 1 Goal / Goal Update 1. Achieve 170 degrees of left shoulder passive ROM 2. Achieve 80 degrees of left shoulder passive ROM Target Visit 10 PT Goal 2 Goal / Goal Update 1. Achieve 170 degrees of left shoulder active ROM 2. Achieve 80 degrees of left shoulder active ROM Target Visit 10 PT Problem 3 PT Problem #3 Impaired Strength PT Goal 1 Goal / Goal Update 1. Demonstrate left shoulder flexion strength of 4 -/5 without resistance for functional activity performance 2. Improve left shoulder external rotation strength to 4-/4 to improve shoulder stability for self care Target Visit 10
--- NOTE | 2024-10-13 16:25 | PTOPEVAL1 ---
Assessment and note entered by Quan Foster, PT Evaluation Information Assessment Status Evaluation ICD-10 Condition Codes (PT) Pain in right shoulder M25.511 Subjective Information Reports that he has history of shoulder issues and neck issues. States that he was just taken out of the sling and reports that he has not done much with the shoulder. He feel that abduction motion is the hardest. Initial injury was from fallowing down the stairs. Reports that he has been havign a lot of neck strain right now which has been more painful than the shoulder. Reported Pain Level Pain Score 2: Self Report Assessment PT Clinical Summary Patient presents with ROM and strength loss in operative shoulder typical of post operative rotator cuff. Patient will benefit from skilled therapy to address these deficits as we progress through protocol with tissue protection and progression to tolerance. No concerns at this time . Patient has been immobilized for an extended period and will emphasize ROM at this time. Plan of Care Interventions Manual Therapy,Neuro Re-education,Therapeutic Activities,Therapeutic Exercise PT Services Indicated Yes Treatment Frequency and 2x/week for 10 visits Duration These treatments will address the objective and functional deficits as defined above. The patient will be advanced safely and appropriately in order for the patient to progress towards his/her prior level of function. Additional exercises will be introduced and as well as a comprehensive home exercise program upon discharge, if needed, ?to ensure carryover of functional gains achieved in the clinic. This treatment plan has been reviewed and agreement upon by the patient.
--- NOTE | 2024-11-28 16:06 | OPREHPOC ---
Outpatient Therapy Plan of Care This is a Multidisciplinary Plan of Care that may contain components documented by all disciplines (PT, OT, and ST.) PT Problem 1 PT Problem #1 Knowledge Deficit PT Goal 1 Goal / Goal Update [place] with HEP Target Visit 4 Progress Met PT Goal 2 Goal / Goal Update Report no pain greater than 2/10 at worst Target Visit 8 PT Problem 2 PT Problem #2 Edema PT Goal 1 Goal / Goal Update 1. Achieve 170 degrees of left shoulder flexion passive ROM 2. Achieve 80 degrees of left shoulder ER passive ROM Target Visit 10 Progress Met PT Goal 2 Goal / Goal Update 1. Achieve 170 degrees of left shoulder flexion active ROM (progressing 11/28/24, 151 deg) 2. Achieve 80 degrees of left shoulder ER active ROM (progressing 11/28/24, 72deg) Target Visit 10 Progress Partially Met PT Problem 3 PT Problem #3 Impaired Strength PT Goal 1 Goal / Goal Update 1. Demonstrate left shoulder flexion strength of 4 -/5 without resistance for functional activity performance (progressing 11/28/24, 3+/5) 2. Improve left shoulder external rotation strength to 4-/5 to improve shoulder stability for self care (progressing 11/28/24, 3+/5) Target Visit 10 PT Problem 4 PT Problem #4 Pain PT Goal 1 Goal / Goal Update Report no pain greater than 2/10 at worst Target Visit 8 Progress Met
--- NOTE | 2024-11-28 16:06 | PTOPPROG ---
Assessment and note entered by Jacque Chairez, PT Evaluation Information Assessment Status Progress ICD-10 Condition Codes (PT) Pain in right shoulder M25.511 Subjective Information Pt reports he has been feeling really well in the last few weeks. Since he is doing more with his left shoulder he is noticing some popping in the R shoulder. He wants to talk to his MD about this at his next appt. He is doing an OH press when he goes to the gym and the popping in the R shoulder goes away after a few reps. Overall since first starting therapy the patient reports feeling 90% improvement. Assessment PT Clinical Summary Patient continues to present with slight ROM restrictions and strength loss in L operative shoulder typical of post operative rotator cuff rehab at this time in his protocol. Patient will benefit from continued skilled therapy to address these deficits and facilitate a return to PLOF. Plan of Care Interventions Manual Therapy,Neuro Re-education,Therapeutic Activities,Therapeutic Exercise PT Services Indicated Yes Treatment Frequency and 2x/week for 10 visits Duration These treatments will address the objective and functional deficits as defined above. The patient will be advanced safely and appropriately in order for the patient to progress towards his/her prior level of function. Additional exercises will be introduced and as well as a comprehensive home exercise program upon discharge, if needed, ?to ensure carryover of functional gains achieved in the clinic. This treatment plan has been reviewed and agreement upon by the patient.
--- NOTE | 2024-12-16 13:09 | PCPTNOTE ---
No call no show this date, reason unknown. ELVIRAS
--- NOTE | 2025-01-02 13:23 | OPREHPOC ---
Outpatient Therapy Plan of Care This is a Multidisciplinary Plan of Care that may contain components documented by all disciplines (PT, OT, and ST.) PT Problem 1 PT Problem #1 Knowledge Deficit PT Goal 1 Goal / Goal Update Post Falls with HEP Target Visit 4 Progress Met PT Goal 2 Goal / Goal Update Report no pain greater than 2/10 at worst Target Visit 8 PT Problem 2 PT Problem #2 Edema PT Goal 1 Goal / Goal Update 1. Achieve 170 degrees of left shoulder flexion passive ROM 2. Achieve 80 degrees of left shoulder ER passive ROM Target Visit 10 Progress Met PT Goal 2 Goal / Goal Update 1. Achieve 170 degrees of left shoulder flexion active ROM (progressing 01/02/25, 162 deg) 2. Achieve 80 degrees of left shoulder ER active ROM (progressing 01/02/25, 75deg) Target Visit 10 Progress Partially Met PT Problem 3 PT Problem #3 Impaired Strength PT Goal 1 Goal / Goal Update 1. Demonstrate left shoulder flexion strength of 4 -/5 without resistance for functional activity performance (MET 01/02/25) 2. Improve left shoulder external rotation strength to 4-/5 to improve shoulder stability for self care (MET 01/02/25) Target Visit 10 Progress Met PT Goal 2 Goal / Goal Update 1. Demonstrate left shoulder flexion strength of 4 /5 without resistance for functional activity performance 2. Improve left shoulder external rotation strength to 4+/5 to improve shoulder stability for self care. Target Visit 24 PT Problem 4 PT Problem #4 Pain PT Goal 1 Goal / Goal Update Report no pain greater than 2/10 at worst Target Visit 8 Progress Met
--- NOTE | 2025-01-02 13:23 | PTOPPROG ---
Assessment and note entered by Jacque Chairez, PT Evaluation Information Assessment Status Progress ICD-10 Condition Codes (PT) Pain in right shoulder M25.511 Subjective Information He is very pleased with his shoulder and is doing great. Overall since first starting therapy the patient reports feeling 90% improvement. He denies pain greater than 2/10 for more than 2 weeks. He only has the mild discomfort when attempting extreme end range abduction and internal rotation behind his back. There are things he has not attempted because he wants to be cautious to avoid reinjury. He thinks he needs more strengthening but he would be comfortable doing this on his own. Assessment PT Clinical Summary Patient continues to present with slight ROM restrictions and strength loss in L operative shoulder typical of post operative rotator cuff, improving from previous progress note. He has improving self reports on the QuickDASH from 43% to 14%. He continues to require skilled instruction for progressive strength training for optimal recovery. Patient will benefit from continued skilled therapy to address these deficits and facilitate a return to PLOF. Plan of Care Interventions Manual Therapy,Neuro Re-education,Therapeutic Activities,Therapeutic Exercise PT Services Indicated Yes Treatment Frequency and 1x/week for 6 visits Duration These treatments will address the objective and functional deficits as defined above. The patient will be advanced safely and appropriately in order for the patient to progress towards his/her prior level of function. Additional exercises will be introduced and as well as a comprehensive home exercise program upon discharge, if needed, ?to ensure carryover of functional gains achieved in the clinic. This treatment plan has been reviewed and agreement upon by the patient.
== END 2025-01-11 23:59 | disposition home or self-care (01) ==
LOC: ANHPT 12:30
PROVIDERS: Visit Provider Physician Assistant Surgical
DX: Z48.89 Encounter for other specified surgical aftercare (principal); M25.511 Pain in right shoulder
CPT/HCPCS: 97110; 97112; 97140; 97161; 97530

== ENCOUNTER 2025-02-09 08:27 | Outpatient (CLI) | payer MEDICARE, BC, SELFPAY ==
--- OUTSIDE RECORDS SUMMARY | 2000-07-23 03:15 | XMS_ITS | Continuity of Care Document ---
Author Organization [facility] Address [address] [place] [address] [place] [address] Phone Care Team Providers Care Counselling Psychologist Name Role Phone Vinay Paulino DO Unavailable Unavailable Advance Directives Directive Yes / No Effective Date File Name No Information Encounters Encounter Description Practice Location Reason(s) For Visit Diagnoses Date Provider Providers Copied on Encounter [facility], [address] [place] [address] [address], [place], [place], [address], [place] tel:[phone] [facility] No Information Jefferson Jose. [address] [facility], [place], [address], [place]. tel: [phone] Family History Family Member Type Diagnosis Age At Onset No Information Payers Payer name Insurance type Covered green party ID Authoriza tion(s) [facility] [id number] Social History Type Description Quantity Date Captured [...]
--- NOTE | ~2025-02-09 | CT_ITS ---
EXAMINATION: CT_LERTCWO_CT DATE: 02/09/2025 08:48 INDICATION: Right knee osteoarthritis for preoperative planning. TECHNIQUE: High resolution computed tomography (CT) of the right lower extremity from the hip through the ankle was performed without intravenous contrast. Additional sagittal and coronal reconstructions were performed. Automated exposure control and iterative reconstruction technique were employed. The dose- length product was 2073.65 mGy-cm. COMPARISON: None FINDINGS: Bone alignment is normal. No fracture or suspected osteonecrosis. There is chondrocalcinosis at all 3 compartments of the right knee. Tricompartmental osteoarthritis of the right knee with severe joint space narrowing the medial compartment evident on the prior weightbearing radiographs which is undere stimated on the current nonweightbearing imaging. There is cortical irregularity and small central subchondral osteophytes along the anterior weightbearing medial femoral condyle consistent with overlying high-grade chondromalacia. Moderate to large right knee joint effusion. Additional polyarticular o steoarthritis, moderate severity at the right sacroiliac joint and mild at the right hip, right ankle and several joints in the right foot. Subarticular cystlike change along the posterior aspect of the tibial plafond consistent with associated high-grade chondromalacia. No ankle joint effusion. IMPRESSION: 1. Severe medial compartment prominent tricompartmental osteoarthritis the right knee with moderate to large knee joint effusion. Reviewed, dictated and finalized at location A. IMPRESSION: 1. Severe medial compartment prominent tricompartmental osteoarthritis the righ t knee with moderate to large knee joint effusion.
--- OUTSIDE RECORDS SUMMARY | 2025-02-09 08:34 | XMS_ITS | Clinical Summary ---
Author Organization [facility] [employer] Address [address] [facility] [place] [address] Care Team Providers Care Guard Dance Hall Name Role Phone Ambrose Watkins MD Primary Care Provider Source Comments [facility] [employer],non-owned Affiliates and Associated Physician Practices is amultiple site organization consisting of ambulatory clinics and hospital sitesin [place], [place] and [place]. This disclosure is being madepursuant to the Care Everywhere program and may not contain all information available regarding this patient. Last updated 18.[employer] Allergies No known active allergies Active Problems [...] yrs (1 - 1-dose 75+ series) 10/17/2023 DEPRESSION SCREENING 06/08/2024 COVID-19 VACCINE ( season) 2025 04/09/2021, 09/04/2020, 08/28/2020, Additional history exists INFLUENZA VACCINE (#1) 2025 , 04/14/2019, 04/19/2018, [...] patient's age [place] [address] [facility] MEDIC[facility] Member Subscriber Plan / Payer (Ef fective 2013-Present) Name:Suhail Elise Member ID:[id number] Relation to Subscriber:Self Name:Suhail Elise Subscriber ID:[id number] Payer ID:Not on file Group ID:Not on file Type:Medicare Address: [facility] [address] [id number] Care Teams Guard Dance Hall Relationship Specialty Start Date End Date Ambrose Watkins MD [address] [place] [address] PCP - General Family Medicine 04/08/16
--- OUTSIDE RECORDS SUMMARY | 2025-02-09 08:34 | XMS_ITS | Clinical Summary ---
Author Organization [facility] Address [address] [place] [address] Phone Care Team Providers Care Bumboater Name Role Phone Ambrose Watkins MD Primary Care Provider + [phone] Liliya Montalvo [employer] [employer] [employer] Unavailable [phone] Allergies Active Allergy Reactions Criticality Noted [...] Encounters Date Type Department Care Team Description 12/22/2024 Telephone [facility] Medicine Hematology [facility] Floor [address] [place] [address] Dia De Anda from Last [...] on file 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 Address: [address] [place] [address] [place] [address] MEDICARE [facility] Address: [address] [place] [address] Care Teams Bumboater Relationship Specialty Start Date End Date Ambrose Watkins MD PCP - General Family Medicine 05/10/18 Liliya Montalvo NP [address] [place] [address] Nurse Practitioner Medical Oncology 10/20/22
== END 2025-02-09 08:28 | disposition home or self-care (01) ==
LOC: ANHIMG 08:29
PROVIDERS: PCP Family Medicine; Visit Provider Orthopaedic Surgery
DX: Z01.818 Encounter for other preprocedural examination (principal); M17.11 Unilateral primary osteoarthritis, right knee; M25.461 Effusion, right knee
CPT/HCPCS: 73700

== ENCOUNTER 2025-02-13 11:15 | Outpatient (RCR) | payer MEDICARE, BC, SELFPAY ==
--- NOTE | 2025-02-13 11:39 | PTOPDC ---
Assessment and note entered by Jacque Chairez, PT Evaluation Information Assessment Status Discharge ICD-10 Condition Codes (PT) Pain in right shoulder M25.511 Subjective Information He is very pleased with his shoulder and is doing great. Overall since first starting therapy the patient reports feeling 100% improvement. He had an instant where he tweaked his shoulder a few weeks ago. After 2 days of inactivity it got better. He is comfortable with an HEP and gym routine. He only has the mild discomfort when attempting extreme end range internal rotation sleeper stretch. He does all ADLs independently and is being patient with progressing his weight lifting at the gym. Reported Pain Level Pain Score 0: Self Report Assessment PT Clinical Summary Patient's condition has improved overall as evidenced by advancements in symptoms, mobility, strength, and overall functional use of the extremity. Pt has met all therapy goals and is pleased with progress made in therapy. Patient to DC from PT this date and continue with updated HEP and gym routine as instructed. Pt to contact PT or PCP if questions or concerns arise. Plan of Care PT Services Indicated Yes
== END 2025-02-13 13:49 | disposition home or self-care (01) ==
LOC: ANHPT 11:15
PROVIDERS: PCP Family Medicine; Visit Provider Physician Assistant Surgical
DX: Z48.89 Encounter for other specified surgical aftercare (principal); M25.511 Pain in right shoulder
CPT/HCPCS: 97110; 97140; 97530

== ENCOUNTER 2025-02-21 11:21 | Outpatient (CLI) | payer MEDICARE, BC, SELFPAY ==
--- OUTSIDE RECORDS SUMMARY | 2000-07-23 03:15 | XMS_ITS | Continuity of Care Document ---
Author Organization [facility] Address [address] [place] [address] [place] [address] Phone Care Team Providers Care Division Roadmaster Name Role Phone Vinay Paulino DO Unavailable Unavailable Advance Directives Directive Yes / No Effective Date File Name No Information Encounters Encounter Description Practice Location Reason(s) For Visit Diagnoses Date Provider Providers Copied on Encounter [facility], [address] [place] [address] [address], [place], [place], [address], [place] tel:[phone] [facility] No Information Jefferson Jose. [address] [facility], [place], [address], [place]. tel: [phone] Family History Family Member Type Diagnosis Age At Onset No Information Payers Payer name Insurance type Covered libertarian ID Authoriza tion(s) [facility] [id number] Social History Type Description Quantity Date Captured [...]
[2025-02-21 11:41] LABS: Hematocrit 44.3 % (42.0-52.0); Hemoglobin 15.5 g/dL (14.0-18.0)
[2025-02-21 12:03] LABS: Albumin Level 4.1 g/dL (3.5-5.1); Estimated Glomerular Filt Rate > 60; Glucose 103 mg/dL (65-110)
--- OUTSIDE RECORDS SUMMARY | 2025-02-21 13:25 | XMS_ITS | Clinical Summary ---
Author Organization [facility] [[email or web address] Address [address] [place] [address] Phone Care Team Providers Care Iron Caster Name Role Phone Ambrose Watkins MD Primary Care Provider + [phone] Liliya Montalvo LEATHER CURRIER Unavailable [phone] Allergies Active Allergy Reactions Criticality Noted [...] Type Department Care Team Description 12/22/2024 Telephone 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 Gender Identity Not on file Sexual Orientation [...] - PCV) 06/11/2019 06/11/2018 Covid-19 Vaccine (6 2024-2 6 season) 2025 04/09/2022, 03/10/2022, 12/16/2021, Additional history exists Influenza Vaccine (#1) 2025 , 04/14/2019, 04/19/2018, Additional history exists DTaP/Tdap/Td Vaccine (2 - Td or Tdap) 07/28/2029 07/28/2019 Insurance MEDICARE [facility] [place] [address] MEDICARE [facility] Care Teams Iron Caster Relationship Specialty Start Date End Date Ambrose Watkins MD PCP - General Family Medicine 05/10/18 Liliya Montalvo NP [address] [place] [address] Nurse Practitioner Medical Oncology 10/20/22
--- OUTSIDE RECORDS SUMMARY | 2025-02-21 13:25 | XMS_ITS | Clinical Summary ---
Author Organization [facility] [employer] Address [address] [facility] [place] [address] Care Team Providers Care Corrective Therapy Aide Teacher Name Role Phone Ambrose Watkins MD Primary Care Provider [phone] Source Comments [facility] [employer],non-owned Affiliates and Associated Physician Practices is amultiple site organization consisting of ambulatory clinics and hospital sitesin [place], [place], [place] and [place]. This disclosure is being madepursuant to the Care Everywhere program and may not contain all information available regarding this patient. Last updated 18.[employer] Allergies No known active allergies Active Problems [...] patient's age to complete [place] [address] [facility] Address: [address] [place] [address] MEDICARE Member Subscriber Plan / Payer (Ef fective 2013-Present) Name:Suhail Elise Member ID:[id number] Relation to Subscriber:Self Name:Suhail Elise Subscriber ID:[id number] Payer ID:Not on file Group ID:Not on file Type:Medicare Address: [facility] [address] [phone] Care Teams Corrective Therapy Aide Teacher Relationship Specialty Start Date End Date Ambrose Watkins MD [address] [place] [address] PCP - General Family Medicine 04/08/16
== END 2025-02-21 11:22 | disposition home or self-care (01) ==
PROVIDERS: PCP Family Medicine; Visit Provider Orthopaedic Surgery
DX: E78.5 Hyperlipidemia, unspecified (principal); D72.9 Disorder of white blood cells, unspecified; M17.11 Unilateral primary osteoarthritis, right knee; Z13.1 Encounter for screening for diabetes mellitus; Z79.899 Other long term (current) drug therapy
CPT/HCPCS: 80307; 82040; 82565; 82947; 85014; 85018

== ENCOUNTER 2025-03-01 15:00 | Outpatient (CLI) | payer MEDICARE, BC, SELFPAY ==
--- OUTSIDE RECORDS SUMMARY | 2025-03-01 15:07 | XMS_ITS | Clinical Summary ---
Author Organization [facility] [employer] Address [address] [facility] [place] [address] Care Team Providers Care District Medical Examiner Name Role Phone Ambrose Watkins MD Primary Care Provider [phone] Source Comments [facility] [employer],non-owned Affiliates and Associated Physician Practices is amultiple site organization consisting of ambulatory clinics and hospital sitesin [place], [place], [place] and [place]. This disclosure is being madepursuant to the Care Everywhere program and may not contain all information available regarding this patient. Last updated 18.[facility] [employer] Allergies No known active allergies Active Problems [...] patient's age to complete this [place] [address] [facility] MEDIC[facility] Member Subscriber Plan / Payer (Ef fective 2013-Present) Name:Suhail Elise Member ID:[id number] Relation to Subscriber:Self Name:Suhail Elise Subscriber ID:[id number] Payer ID:Not on file Group ID:Not on file Type:Medicare Address: [facility] [address] [phone] Care Teams District Medical Examiner Relationship Specialty Start Date End Date Ambrose Watkins MD [address] [place] [address] PCP - General Family Medicine 04/08/16
--- OUTSIDE RECORDS SUMMARY | 2025-03-01 15:07 | XMS_ITS | Clinical Summary ---
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
--- NOTE | 2025-03-01 15:11 | ECG_ITS ---
Test Date: 2025-03-01 15:25:08 Measurements Intervals [place] Rate: 68 P: 74 IA: 165 QRS: -9 QRSD: 93 T: 6 QT: 357 QTc: 381 Interpretive Statements SINUS RHYTHM No previous ECG available for comparison Electronically Signed On 03-02-2025 06:40:39 CDT by Matt Paul M.D.
== END 2025-03-01 15:01 | disposition home or self-care (01) ==
LOC: ANHIMG 15:04 → ANHCARD 15:11
PROVIDERS: PCP Family Medicine; Visit Provider Orthopaedic Surgery
DX: Z01.810 Encounter for preprocedural cardiovascular examination (principal); M17.11 Unilateral primary osteoarthritis, right knee
CPT/HCPCS: 93005

== ENCOUNTER 2025-04-26 13:51 | Outpatient (CLI) | payer MEDICARE, BC, SELFPAY ==
--- OUTSIDE RECORDS SUMMARY | 2000-07-23 02:15 | XMS_ITS | Continuity of Care Document ---
Author Organization [facility] Address [address] [place] [address] [place] [address] Phone Care Team Providers Care Edging Machine Operator Name Role Phone Vinay Paulino DO Unavailable Unavailable Advance Directives Directive Yes / No Effective Date File Name No Information Encounters Encounter Description Practice Location Reason(s) For Visit Diagnoses Date Provider Providers Copied on Encounter [facility], [address] [place] [address] [address], [place], [place], [id number], [place] tel:[phone] [facility] No Information Jefferson Jose. [address] [facility], [place], [address], [place]. tel: [phone] Family History Family Member Type Diagnosis Age At Onset No Information Payers Payer name Insurance type Covered constitution party ID Authoriza tion(s) [facility] [id number] Social History Type Description Quantity Date Captured Comments Sex Male Smoking Status No Information Chief Complaint And Reason For Visit No Information Reason For Referral Reason For Referral No Information History Of Present Illness Encounter Date Complaint History Of Prese nt Illness No Information Functional Status Date Functional Assessmen t No Information Instructions Date Instruction Additional Infor mation No Information Assessments Type Assessment Date No Information Patient Care Teams Name Effective Dates (start - stop) Status Members No Information
--- OUTSIDE RECORDS SUMMARY | 2000-07-23 02:15 | XMS_ITS | Continuity of Care Document ---
Author Organization [facility] Address [address] [place] [address] [place] [address] Phone Care Team Providers Care Photographer Apprentice Name Role Phone Vinay Paulino DO Unavailable Unavailable Advance Directives Directive Yes / No Effective Date File Name No Information Encounters Encounter Description Practice Location Reason(s) For Visit Diagnoses Date Provider Providers Copied on Encounter [facility], [address] [place] [address] [address], [place], [place], [address], [place] tel:[phone] [facility] No Information Jefferson Jose. [address] [facility], [place], [address], [place]. tel: [phone] Family History Family Member Type Diagnosis Age At Onset No Information Payers Payer name Insurance type Covered green party ID Authoriza tion(s) [facility] [id number] Social History Type Description Quantity Date Captured [...]
--- OUTSIDE RECORDS SUMMARY | 2000-07-23 02:15 | XMS_ITS | Continuity of Care Document ---
Author Organization [facility] Address [address] [place] [address] [place] [address] Phone Care Team Providers Care Bi Developer Name Role Phone Vinay Paulino DO Unavailable Unavailable Advance Directives Directive Yes / No Effective Date File Name No Information Encounters Encounter Description Practice Location Reason(s) For Visit Diagnoses Date Provider Providers Copied on Encounter [facility], [address] [place] [address] [address], [place], [place], [id number], [place] tel:[phone] [facility] No Information Jefferson Jose. [address] [facility], [place], [address], [place]. tel: [phone] Family History Family Member Type Diagnosis Age At Onset No Information Payers Payer name Insurance type Covered republican ID Authoriza tion(s) [facility] [id number] Social History Type Description Quantity Date Captured [...]
--- OUTSIDE RECORDS SUMMARY | 2000-07-23 02:15 | XMS_ITS | Continuity of Care Document ---
Author Organization [facility] Address [address] [place] [address] [place] [address] Phone Care Team Providers Care Carbon Printer Name Role Phone Vinay Paulino DO Unavailable Unavailable Advance Directives Directive Yes / No Effective Date File Name No Information Encounters Encounter Description Practice Location Reason(s) For Visit Diagnoses Date Provider Providers Copied on Encounter [facility], [address] [place] [address] [address], [place], [place], [id number], [place] tel:[phone] [facility] No Information Jefferson Jose. [address] [facility], [place], [address], [place]. tel: [phone] Family History Family Member Type Diagnosis Age At Onset No Information Payers Payer name Insurance type Covered democrat ID Authoriza tion(s) [facility] [id number] Social History Type Description Quantity Date Captured [...]
--- OUTSIDE RECORDS SUMMARY | 2000-07-23 02:15 | XMS_ITS | Continuity of Care Document ---
Author Organization [facility] Address [address] [place] [address] [place] [address] Phone Care Team Providers Care Occupational Health Coordinator Name Role Phone Vinay Paulino DO Unavailable Unavailable Advance Directives Directive Yes / No Effective Date File Name No Information Encounters Encounter Description Practice Location Reason(s) For Visit Diagnoses Date Provider Providers Copied on Encounter [facility], [address] [place] [address] [address], [place], [place], [address], [place] tel:[phone] [facility] No Information Jefferson Jose. [address] [facility], [place], [address], [place]. tel: [phone] Family History Family Member Type Diagnosis Age At Onset No Information Payers Payer name Insurance type Covered libertarian ID Authoriza tion(s) [facility] [id number] Social History Type Description Quantity Date Captured [...]
--- OUTSIDE RECORDS SUMMARY | 2000-07-23 02:15 | XMS_ITS | Continuity of Care Document ---
Author Organization [facility] Address [address] [place] [address] [place] [address] Phone Care Team Providers Care Director Safety Name Role Phone Vinay Paulino DO Unavailable Unavailable Advance Directives Directive Yes / No Effective Date File Name No Information Encounters Encounter Description Practice Location Reason(s) For Visit Diagnoses Date Provider Providers Copied on Encounter [facility], [address] [place] [address] [address], [place], [place], [address], [place] tel:[phone] [facility] No Information Jefferson Jose. [address] [facility], [place], [address], [place]. tel: [phone] Family History Family Member Type Diagnosis Age At Onset No Information Payers Payer name Insurance type Covered alliance party ID Authoriza tion(s) [facility] [id number] Social History Type Description Quantity Date Captured [...]
--- OUTSIDE RECORDS SUMMARY | 2000-07-23 02:15 | XMS_ITS | Continuity of Care Document ---
Author Organization [facility] Address [address] [place] [address] [place] [address] Phone Care Team Providers Care Real Estate Financial Analyst Name Role Phone Vinay Paulino DO Unavailable Unavailable Advance Directives Directive Yes / No Effective Date File Name No Information Encounters Encounter Description Practice Location Reason(s) For Visit Diagnoses Date Provider Providers Copied on Encounter [facility], [address] [place] [address] [address], [place], [place], [address], [place] tel:[phone] [facility] No Information Jefferson Jose. [address] [facility], [place], [address], [place]. tel: [phone] Family History Family Member Type Diagnosis Age At Onset No Information Payers Payer name Insurance type Covered alliance party ID Authoriza tion(s) [facility] [place] [id number] Social History Type Description Quantity Date Captured [...]
--- OUTSIDE RECORDS SUMMARY | 2000-07-23 02:15 | XMS_ITS | Continuity of Care Document ---
Author Organization [facility] Address [address] [place] [address] [place] [address] Phone Care Team Providers Care Airport Tower Controller Name Role Phone Vinay Paulino DO Unavailable Unavailable Advance Directives Directive Yes / No Effective Date File Name No Information Encounters Encounter Description Practice Location Reason(s) For Visit Diagnoses Date Provider Providers Copied on Encounter [facility], [address] [place] [address] [address], [place], [place], [id number], [place] tel:[phone] [facility] No Information Jefferson Jose. [address] [facility], [place], [address], [place]. tel: [phone] Family History Family Member Type Diagnosis Age At Onset No Information Payers Payer name Insurance type Covered democrat ID Authoriza tion(s) [facility] [id number] Social History Type Description Quantity Date Captured [...]
--- OUTSIDE RECORDS SUMMARY | 2000-07-23 02:15 | XMS_ITS | Continuity of Care Document ---
Author Organization [facility] Address [address] [place] [address] [place] [address] Phone Care Team Providers Care Needle Felt Making Machine Operator Name Role Phone Vinay Paulino DO Unavailable Unavailable Advance Directives Directive Yes / No Effective Date File Name No Information Encounters Encounter Description Practice Location Reason(s) For Visit Diagnoses Date Provider Providers Copied on Encounter [facility], [address] [place] [address] [address], [place], [place], [address], [place] tel:[phone] [facility] No Information Jefferson Jose. [address] [facility], [place], [address], [place]. tel: [phone] Family History Family Member Type Diagnosis Age At Onset No Information Payers Payer name Insurance type Covered constitution party ID Authoriza tion(s) [facility] [id number] Social History Type Description Quantity Date Captured [...]
--- OUTSIDE RECORDS SUMMARY | 2000-07-23 02:15 | XMS_ITS | Continuity of Care Document ---
Author Organization [facility] Address [address] [place] [address] [place] [address] Phone Care Team Providers Care B And B Gang Worker Name Role Phone Vinay Paulino DO Unavailable Unavailable Advance Directives Directive Yes / No Effective Date File Name No Information Encounters Encounter Description Practice Location Reason(s) For Visit Diagnoses Date Provider Providers Copied on Encounter [facility], [address] [place] [address] [address], [place], [place], [address], [place] tel:[phone] [facility] No Information Jefferson Jose. [address] [facility], [place], [address], [place]. tel: [phone] Family History Family Member Type Diagnosis Age At Onset No Information Payers Payer name Insurance type Covered green party ID Authoriza tion(s) [facility] [id number] Social History Type Description Quantity Date Captured [...]
--- OUTSIDE RECORDS SUMMARY | 2000-07-23 02:15 | XMS_ITS | Continuity of Care Document ---
Author Organization [facility] Address [address] [place] [address] [place] [address] Phone Care Team Providers Care Registered Health Nurse Name Role Phone Vinay Paulino DO Unavailable Unavailable Advance Directives Directive Yes / No Effective Date File Name No Information Encounters Encounter Description Practice Location Reason(s) For Visit Diagnoses Date Provider Providers Copied on Encounter [facility], [address] [place] [address] [address], [place], [place], [address], [place] tel:[phone] [facility] No Information Jefferson Jose. [address] [facility], [place], [address], [place]. tel: [phone] Family History Family Member Type Diagnosis Age At Onset No Information Payers Payer name Insurance type Covered democrat ID Authoriza tion(s) [facility] [id number] Social History Type Description Quantity Date Captured [...]
[2025-04-26 15:14] LABS: Hematocrit 45.1 % (42.0-52.0); Hemoglobin 15.9 g/dL (14.0-18.0); Immature Granulocyte Percent A 0.4 % (0-0.5); Lymphocytes Absolute Auto 1.06 K/mm3 (0.9-3.2); Mean Corpuscular HGB Conc 35.3 g/dl (32-36); Mean Corpuscular Hemoglobin 32.3 pg (26-34); Mean Corpuscular Volume 91.5 fl (80-100); Nucleated Red Blood Cells Absolute Auto 0.000 K/mm3 (0.0-0.012); Nucleated Red Blood Cells Perc 0.0 % (0.0-0.2); Platelet Count Result 258 k/mm3 (150-375); Red Blood Count 4.93 M/mm3 (4.6-6.20); White Blood Count 4.8 K/mm3 (4.5-10.0)
[2025-04-26 15:24] LABS: Albumin Level 4.6 g/dL (3.5-5.1); Estimated Glomerular Filt Rate > 60; Glucose 85 mg/dL (65-110)
[2025-04-26 15:26] LABS: INR 1.1; Prothrombin Time 14.8 Seconds (11.1-14.7)
[2025-04-26 15:27] LABS: Partial Thromboplastin Time 33.3 Seconds (22.3-36.8)
[2025-04-26 15:50] LABS: Hemoglobin A1C 4.8 % (<5.7)
[2025-04-26 16:24] LABS: MRSA (PCR) NOT DETECTED (NOT DETECTE)
== END 2025-04-26 13:52 | disposition home or self-care (01) ==
LOC: ANHSURGERY 13:56
PROVIDERS: Anesthesiology; PCP Family Medicine; Visit Provider Orthopaedic Surgery
DX: Z01.812 Encounter for preprocedural laboratory examination (principal); M17.11 Unilateral primary osteoarthritis, right knee; E83.119 Hemochromatosis, unspecified
CPT/HCPCS: 36415; 80307; 82040; 82565; 82947; 83036; 85025; 85610; 85730; 87641

== ENCOUNTER 2025-05-23 00:15 | Day surgery (SDC) | payer MEDICARE, BC, SELFPAY ==
[2025-04-26 14:13] VITALS: BP 143/73; PULSE 60; RESP 16; TEMP 37.1; O2SAT 99; BMI 21.3
--- NOTE | 2025-04-26 14:30 | PC.NURSE ---
[facility] has started construction of its new state of the art ER which will open Spring 2026. With this, we anticipate parking may be a challenge for some our surgical patients and families. Parking spaces are limited but are available for all Surgical, obstetrics, and ER patients sharing this lot. If you arrive and find you are having a hard time finding a parking space, please note that we understand the challenges, please drive around the hospital and park near Hospital Entrance 1. When you enter this entrance, you can ask a volunteer to direct or take you back to the surgical waiting area to check in. We appreciate everyone?s understanding of these expected challenges while we build for your future. Report to the Outpatient Waiting Room, entrance under the green pavilion located off [address], at time _0600am on date __05/23/25 . Planned Procedure Time: _0730am .? Time changes happen often and if your time is changed the preop area will call you the afternoon before. - You and your visitor will be asked to self-screen and do not enter if you have any COVID symptoms. Please call surgeon if you need to reschedule. - A mask is optional within the hospital at this time. Patients may have clear liquids (water, carbonated beverages, clear teas, apple juice) until 3 hours prior to surgery with a maximum of 20 ounces. - No food from midnight until time of surgery and no smoking, or chewing tobacco (or any form of nicotine). No chewing gum, candy or mints.(0430am) Take only the following medications with a SIP of water on the morning of surgery: Eye drops as prescribed ___Tylenol if needed DO NOT STOP ANY OF YOUR OTHER PRESCRIPTION MEDICATIONS PRIOR TO SURGERY EXCEPT THE FOLLOWING Hold all vitamins and supplements for 3 days per anesthesiologist. Medications to discontinue per physician ____NSAIDS, ADVIL, MOTRIN or ASPIRIN for [address] Nicolas Date to take last dose___05/15/25 Please no make-up, nail sinhala, hairspray, perfume, deodorant, or body powder the day of surgery.? No jewelry (including any body piercings) or valuables the day of surgery, leave them at home.? Please take a shower or bath the night before, or the morning of, surgery with an antibacterial soap. GOLD DIAL.? Wear comfortable, loose fitting clothing.? Bring overnight bag with stuff discussed. - Jewelry must be removed prior to entering the operating room.? Rings and piercings that are not removed may be cut off. - The hospital will not accept responsibility for valuables.? - Please leave all valuables, including medications, at home the day of surgery. If you are going home after surgery, a licensed city driver must drive you home.? - NO public transportation without another adult if you receive anesthesia. - We recommend that an adult stay with you for 24 hours following discharge. - We also recommend that you do not drive, make important decision, drink alcoholic beverages, or take any drugs that were not prescribed by your health care provider for at least 24 hours after your discharge time. Follow any additional instructions given to you from your surgeon. Telephone instructions given to ____Patient and asked if any additional questions and then verbalized understanding. Patient advised to call surgeon office or pre surgery nurse liaison [phone] if any additional questions.
[2025-05-23] VITALS (16 sets, daily range): BP systolic 109–138; BP diastolic 50–82; PULSE 63–86; RESP 12–21; TEMP 35.9–36.6; O2SAT 95–100; BMI 21.4
--- NOTE | ~2025-05-23 | XR_ITS ---
EXAMINATION: [id number], 05/23/2025 9:50 [facility] APPRENTICE HISTORY: POST-OP RIGHT CUSTOM TKA COMPARISON: No comparisons available. Findings: No acute fracture or malalignment. Arthroplasty unremarkable Soft tissues unremarkable. Impression: No acute fracture or malalignment. Reviewed, dictated and finalized at location P. CASTER APPRENTICE Impression: No acute fracture or malalignment.
--- OUTSIDE RECORDS SUMMARY | 2025-05-23 00:20 | XMS_ITS | Clinical Summary ---
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
[2025-05-23] MEDS: LACTATED RINGERS 1,000 ML 30 ML IV CONT (06:25)
[2025-05-23] MEDS: ACETAMINOPHEN 500 MG TABLET 1000 MG PO (06:39)
[2025-05-23] MEDS: TRANEXAMIC ACID 1,000MG/ISO100 1,000 MG/100 ML BAG 200 MG IVPB (06:40)
--- NOTE | 2025-05-23 06:54 | WPDANESEPPF ---
Anes - Initial Pre Proc Eval Procedure: Operation Date: 05/23/25 07:30 Proposed Procedures p Right Custom Total Knee Arthroplasty - Loc Nicolas MD Date/Time: 05/23/25 06:54 Surgeon: Loc Nicolas MD Pre Op Diagnosis: primary OA right knee Patient Data Age: 74 Gender: M Height: 1.78 m Weight: 67.4 kg Last Vital Signs Temp 37.1 C 04/26/25 14:13 Pulse 60 04/26/25 14:13 Resp 16 04/26/25 14:13 BP 143/73 H 04/26/25 14:13 Pulse Ox 99 04/26/25 14:13 O2 Del Method Room Air 04/26/25 14:13 Allergies Allergy/AdvReac Type Severity Reaction Status Date / Time No Known Allergies Allergy Verified 05/23/25 06:56 Home Medications ?Medication ?Instructions ?Recorded ?Confirmed ?Type omeprazole 20 mg capsule,delayed 20 mg PO DAILY #30 caps 06/06/24 05/23/25 Rx release brimonidine 0.2 %-timolol 0.5 % 1 drp EACH EYE DAILY 08/18/24 05/23/25 History eye drops latanoprost 0.005 % eye drops 1 drp EACH EYE QPM 08/18/24 05/23/25 History multivitamin (Daily Multi-Vitamin 1 tablet PO DAILY 08/18/24 05/23/25 History tablet) ibuprofen 200 mg tablet (Advil) 400 mg PO ONCE PRN pain 04/26/25 05/23/25 History Laboratory Tests 05/23/25 06:29 Blood Type Pending Antibody Screen Pending Patient hx anesthesia problems: none Family hx anesthesia problems: none Results Review: All pre-operative results and documents have been reviewed as part of the pre-operative evaluation. [facility] Past Medical History Medical History Chronic RUQ pain Esophageal stricture Bloating BMI 21.0-21.9, adult Dysphagia History of bleeding peptic ulcer Cerebral atherosclerosis Tear of medial meniscus of right knee Surgical History Surgical History H/O knee surgery Family History Family History Mother No problems noted. Sibling No problems noted. Social History Social History Smoking packs per day: 1 Smoking cigarettes per day: 20.0 Years smoked: 1 Smoking pack-years: 1.00 Smoking status: Former smoker Tobacco type: cigarettes Second hand tobacco smoke exposure: No Smoking end date: 06/08/72 Alcohol intake: current Drinks per week: 3 Substance use: never Substance use type: does not use Lack of Transportation: No Lack of Food: Never True Current Housing: I Have Housing Concerned About Future Housing: No Difficulty Paying Gas/Electric Bills: No Difficulty Paying for Meds: No Currently Unemployed: No Education: Bachelor's Degree Difficulty w/ Childcare or Family Care: No Living arrangements: with family Additional living arrangements comments: Anne Ramirez Occupation/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 Informed Consent: The patient's anesthetic plan and its attendant risks and benefits were discussed with the patient/family/POA. Questions were solicited and answers provided to the satisfaction of the patient/family/POA.
--- NOTE | 2025-05-23 07:20 | WPDHPUPDATE1 ---
History and Physical Update Update Date/Time: 05/23/25 07:20 History and Physical has been reviewed, including an updated exam of the patient. There are NO changes in the patient's condition. Risks, benefits, and alternatives have been discussed and questions answered. Patient agrees to proceed with procedure.
[2025-05-23] MEDS: ceFAZolin 2 GM in SODIUM CHLORIDE 0.9% IV 50 ML 100 ML IVPB ×3 (07:24→23:22)
[2025-05-23] MEDS: SODIUM CHLORIDE 0.9% IV 37.7 ML, MORPHINE SULFATE INJ (*CRX) 2 MG, ROPivacaine HCL 1% 2... INFILTRATE (07:38)
[2025-05-23] MEDS: TRANEXAMIC ACID 1,000 MG/10 ML AMPUL 1000 MG IV PUSH (09:14)
--- NOTE | 2025-05-23 09:57 | P.OP_ITS ---
Procedure Note - Detailed Date of Procedure 05/23/25 Pre-op Diagnosis Right knee degenerative arthritis. Post-op Diagnosis Same Procedure Performed Custom total knee arthroplasty, right. Surgeon Loc Nicolas MD Sourcer Yue Brower PA-C Anesthesia General Findings Severe disease. Satisfactory bone quality. Partial PCL release. Description of Procedure Preoperative antibiotics were given. The limb was prepped and draped in the usual sterile fashion with a well-padded tourniquet high on the thigh. The limb was exsanguinated and the tourniquet inflated to 300 mmHg during exposure and cementation. A longitudinal incision was created just medial to the patella. A trivector approach to the knee was performed. Arthrotomy was taken down through the joint capsule. No significant releases were initially taken. The femur was exposed and the F1 jig was applied. The coring tool was used to remove the cartilage for the F2 jig to sit flush with the bone. The jig was pinned and the distal cut carefully taken. Caliper measurements confirmed appropriate bony resections according to the preoperative templated plan. The F4 cutting jig for the femur was applied, at the standard rotation. The AP and anterior chamfer cuts were taken. The F5 jig was applied and the posterior chamfer cuts were taken. The tibia was prepared using the T1 jig, after removing cartilage for the jig contact points. Proper alignment was checked with the alignment bjonr. The tibia was cut using the T1u guide. Gap balancing was performed. Gap measurements were taken and the knee was trialed. Excellent alignment and soft tissue balancing was confirmed. The posterior cruciate ligament was recessed along the proximal tibia. The patella tracked well. A lateral facetectomy was performed. Meniscal remnants were removed. The trial components were assembled. Excellent range of motion and proper soft tissue balancing were confirmed throughout the full range of motion. Partial PCL release off the tibia was performed. Patellar tracking was excellent. The knee was copiously irrigated periodically throughout the procedure. The real implants were cemented into position. Excess cement was carefully removed. The wound was closed in layers with interrupted #1 Vicryl suture, 2-0 strata fix suture, 0 strata fix suture, 2-0 strata fix suture. Steri-Strips placed on the skin with the knee flexed. Sterile bulky dressing applied. The patient was brought to the recovery room in stable condition. There were no complications. Physician educational/development assistant, Yue Brower PA-C, required for surgery; including patient positioning, draping, tissue retraction, maintaining instrument position, cement removal, wound closure, and dressing placement. Implants Conformis Custom total knee arthroplasty. Cemented. Cruciate retaining. 7B insert. Estimated Blood Loss 100 Drains No Complications No immediate complications Condition Stable Disposition PACU [facility] Billing Surgery - Charge Forward: Surgery Billing
[2025-05-23] MEDS: fentaNYL CITRATE INJ (*CRX) 100 MCG/2 ML VIAL 25 MCG IV PUSH (10:10)
--- NOTE | 2025-05-23 12:38 | ADMGEN ---
This patient, Suhail Elise, was admitted to [facility] Surg Room 306-02. Patient/family oriented to hospital policies and general routines including ID bracelet, bed and alarms, visiting hours, pain management, procedures, bathroom and other care routines, personal items, smoking policy, room service/diet, and visiting hours. Information on how to activate the Rapid Response Team has been discussed. Patient/Family are encouraged to report perceived risks to care and to ask questions if they do not understand what they are told or what they should do.
[2025-05-23] MEDS: oxyCODONE/ACETAMINOPHEN (*CRX) 10-325 MG TABLET 1 TAB PO (13:32)
[2025-05-23] MEDS: ONDANSETRON INJ 4 MG/2 ML VIAL IV PUSH (15:21)
[2025-05-23] MEDS: PANTOPRAZOLE 40 MG TABLET PO (17:42)
[2025-05-23] MEDS: FAMOTIDINE 20 MG TABLET PO (17:42)
[2025-05-23] MEDS: ASPIRIN 81 MG ENTERIC TABLET PO ×2 (17:43→23:23)
[2025-05-23] MEDS: MELOXICAM 7.5 MG TABLET PO (17:43)
[2025-05-23] MEDS: ACETAMINOPHEN 325 MG TABLET 650 MG PO ×2 (17:43→23:23)
[2025-05-23] MEDS: SENNA/DOCUSATE SODIUM TABLET 2 TAB PO (17:43)
[2025-05-23] MEDS: LATANOPROST 0.005% OP SOLN 2.5 ML BTL 1 DROP EACH EYE (18:04)
[2025-05-24 02:05] VITALS: BP 137/40; PULSE 64; RESP 18; TEMP 36.4; O2SAT 97
[2025-05-24 04:30] VITALS: BP 113/59; PULSE 66; RESP 20; TEMP 36.3; O2SAT 98
[2025-05-24 06:03] LABS: Hematocrit 37.6 % (42.0-52.0); Hemoglobin 13.5 g/dL (14.0-18.0); Immature Granulocyte Percent A 0.5 % (0-0.5); Lymphocytes Absolute Auto 0.96 K/mm3 (0.9-3.2); Mean Corpuscular HGB Conc 35.9 g/dl (32-36); Mean Corpuscular Hemoglobin 33.3 pg (26-34); Mean Corpuscular Volume 92.6 fl (80-100); Nucleated Red Blood Cells Absolute Auto 0.000 K/mm3 (0.0-0.012); Nucleated Red Blood Cells Perc 0.0 % (0.0-0.2); Platelet Count Result 193 k/mm3 (150-375); Red Blood Count 4.06 M/mm3 (4.6-6.20); White Blood Count 11.0 K/mm3 (4.5-10.0)
[2025-05-24] MEDS: ceFAZolin 2 GM in SODIUM CHLORIDE 0.9% IV 50 ML 100 ML IVPB (06:12)
[2025-05-24 06:23] LABS: Anion Gap 5 mmol/L (4-12); Blood Urea Nitrogen 20 mg/dL (9-20); Calcium 8.4 mg/dL (8.4-10.2); Carbon Dioxide 25 mmol/L (22-30); Chloride 106 mmol/L (98-107); Estimated CRCL calculation 58 ml/min; Estimated Glomerular Filt Rate > 60; Glucose 115 mg/dL (65-110); Potassium 4.0 mmol/L (3.4-5.0); Sodium 136 mmol/L (137-145)
--- NOTE | 2025-05-24 07:49 | P.PNOP_ITS ---
Progress Note: A&P Assessment and Plan (1) Status post total right knee replacement: Code(s): Z96.651 - Presence of right artificial knee joint Status: Acute Assessment and Plan: Postop day 1: Right total knee arthroplasty. Patient tolerated procedure well. No complications. Pain manageable with pain medication. No numbness or tingling. We had a lengthy discussion regarding postoperative wound care, limitations, expectations, and exercises. Patient shows good understanding. He has had initial physical therapy and is tolerating it well. DVT prophylaxis: 81 mg baby aspirin b.i.d. for 14 days. Pain medication: Percocet. Meloxicam. Prednisone. Patient has followup appointment with Dr. Nicolas in 3 weeks. Subjective Subjective Date/Time Seen: 05/24/25 07:49 Interval history: Patient resting comfortably. No distal numbness or tingling. No other complaints. Review of Systems Review of Systems: All systems reviewed & are unremarkable except as noted in HPI and below Exam Narrative: 74-year-old male. Resting comfortably in bed. Alert and oriented x3. No a cute distress. Wearing compression socks bilaterally. Dressing dry and intact without drainage. Mild swelling. No ecchymosis. No erythema. No hematoma. Range of motion limited due to pain. Calf nontender. Neurologic status intact. No varicosities. Distal pulses palpable. Quad fires. Objective Data Vital Signs Vital Signs: Vital Signs - 24 hr 05/23/25 09:44 05/23/25 09:55 05/23/25 10:10 Temperature 97.6 F Pulse Rate 63 70 68 Respiratory Rate 14 14 14 Blood Pressure 138/78 137/77 129/77 Pulse Oximetry 99 99 99 Oxygen Delivery Simple Face Mask Simple Face Mask Simple Face Mask Oxygen Flow Rate 6 6 6 05/23/25 10:18 05/23/25 10:25 05/23/25 10:40 Temperature Pulse Rate 67 64 Respiratory Rate 14 14 Blood Pressure 129/73 129/67 Pulse Oximetry 95 95 Oxygen Delivery Room Air Room Air Room Air Oxygen Flow Rate 05/23/25 10:55 05/23/25 11:10 05/23/25 11:30 Temperature 97.1 F L 96.7 F L Pulse Rate 67 66 64 Respiratory Rate 12 12 16 Blood Pressure 122/73 120/69 129/71 Pulse Oximetry 96 95 97 Oxygen Delivery Room Air Room Air Oxygen Flow Rate 12/16/25 11:45 05/23/25 12:15 05/23/25 13:19 Temperature 97.0 F L 97.4 F L 96.9 F L Pulse Rate 63 64 63 Respiratory Rate 18 18 18 Blood Pressure 126/64 122/75 126/70 Pulse Oximetry 96 95 100 Oxygen Delivery Oxygen Flow Rate 05/23/25 13:32 05/23/25 14:00 05/23/25 14:27 Temperature 97.1 F L Pulse Rate 86 Respiratory Rate 21 H Blood Pressure 132/82 Pulse Oximetry 98 Oxygen Delivery Room Air Room Air Oxygen Flow Rate 05/23/25 16:11 05/23/25 19:46 05/23/25 20:50 Temperature 96.7 F L 98 F Pulse Rate 63 63 75 Respiratory Rate 20 20 20 Blood Pressure 116/65 109/50 L Pulse Oximetry 99 99 98 Oxygen Delivery Room Air Oxygen Flow Rate 05/23/25 20:59 05/24/25 02:05 05/24/25 04:30 Temperature 97.6 F 97.3 F L Pulse Rate 64 66 Respiratory Rate 18 20 Blood Pressure 137/40 L 113/59 L Pulse Oximetry 99 97 98 Oxygen Delivery Room Air Oxygen Flow Rate Intake/Output Intake/Output: Intake & Output 05/21/25 05/22/25 05/23/25 05/24/25 23:59 23:59 23:59 23:59 Intake Total 1030 318 Balance 1030 318 Meds/Results Medications: Active Medications Generic Name Dose Route Start Last Admin Trade Name Freq PRN Reason Stop Dose Admin Acetaminophen 650 mg 05/23/25 12:00 05/23/25 23:23 Acetaminophen 325 Mg Tablet PO 650 mg Q6HR [facility] Administration Aspirin 81 mg 05/23/25 13:00 05/23/25 23:23 Aspirin 81 Mg Enteric Tablet PO 81 mg Q12HR [facility] Administration Cyclobenzaprine HCl 5 mg 05/23/25 11:21 Cyclobenzaprine Hcl 5 Mg Tablet PO Q8H PRN Spasms Diphenhydramine HCl 25 mg 05/23/25 11:21 Diphenhydramine Hcl Inj 50 Mg/Ml Vial IV PUSH Q6H PRN Itching Famotidine 20 mg 05/23/25 21:00 05/23/25 17:42 Famotidine 20 Mg Tablet PO 20 mg Q12HR [facility] Administration Hydromorphone HCl 1 mg 05/23/25 11:21 Hydromorphone Hcl Inj (*Crx) 1 Mg/Ml Syr IV PUSH Q2H PRN Breakthrough Pain Rated 7-10 or NPO Hydromorphone HCl 0.5 mg 05/23/25 11:21 Hydromorphone Hcl Inj (*Crx) 1 Mg/Ml Syr IV PUSH Q2H PRN Breakthrough Pain Rated 4-6 or NPO Ibuprofen 800 mg in 200 mls @ 400 mls/hr 05/23/25 11:21 Caldolor 800 Mg/200 Ml IVPB Q6H PRN Breakthrough Pain Rated 1-3 or NPO Latanoprost 1 drop 05/23/25 18:00 05/23/25 18:04 Latanoprost 0.005% Op Soln 2.5 Ml Btl EACH EYE 1 drop QPM [facility] Administration Meloxicam 7.5 mg 05/23/25 17:00 05/23/25 17:43 Meloxicam 7.5 Mg Tablet PO 7.5 mg BID [facility] Administration Miscellaneous Information 1 each 05/23/25 00:01 Pepcid And Protonix (Sub For Omeprazole)_ Duplicate Therapy Dc One? XX 06/22 00:00 [facility] Miscellaneous Information 1 each 05/23/25 00:01 Combigan Eye Drops- Typically Dosed Twice Daily. Home Med Link Reads Twice Daily. Please C XX 06/22/25 00:00 CLARIFY [facility] Naloxone HCl 0.1 mg 05/23/25 11:21 Naloxone Hcl 0.4 Mg/Ml Vial IV PUSH Q2M PRN Opiate Reversal Non-Formulary Medication 1 drop 05/23/25 11:21 Brimonidine-Timolol EACH EYE 06/22/25 11:20 DAILY [facility] Ondansetron HCl 4 mg 05/23/25 11:21 05/23/25 15:21 Ondansetron Inj 4 Mg/2 Ml Vial IV PUSH 4 mg Q4H PRN Administration Nausea And Vomiting Oxycodone/Acetaminophen 1 tablet 05/23/25 11:21 Oxycodone/Acetaminophen (*Crx) 5-325 Mg Tablet PO Q4H PRN Pain Rated 4-6 Oxycodone/Acetaminophen 1 tab 05/23/25 11:21 05/23/25 13:32 Oxycodone/Acetaminophen (*Crx) 10-325 Mg Tablet PO 1 tab Q6H PRN Administration Pain Rated 7-10 Pantoprazole Sodium 40 mg 05/23/25 13:00 05/23/25 17:42 Pantoprazole 40 Mg Tablet PO 40 mg QAM [facility] Administration Polyethylene Glycol 17 gm 05/23/25 13:00 05/23/25 17:44 Polyethylene Glycol 3350 17 Gm Powd.Pack PO Not Given QAM [facility] Prednisone 5 mg 05/23/25 17:00 05/23/25 17:43 Prednisone 5 Mg Tablet PO 5 mg DAILY@1700 [facility] Administration Senna/Docusate Sodium 2 tab 05/23/25 17:00 05/23/25 17:43 Senna/Docusate Sodium Tablet PO 2 tab BID [facility] Administration Tramadol HCl 50 mg 05/23/25 11:21 Tramadol Hcl (*Crx) 50 Mg Tablet PO Q4H PRN Pain Rated 1-3 Radiology Results: ITS Impressions Knee X-Ray 05/23/25 10:10 Impression: No acute fracture or malalignment. Labs Labs: Laboratory Results - last 24 hr 05/24/25 05:30 WBC 11.0 H RBC 4.06 L Hgb 13.5 L Hct 37.6 L MCV 92.6 MCH 33.3 MCHC 35.9 RDW 13.0 Plt Count 193 MPV 10.4 Immature Gran % (Auto) 0.5 Neut % (Auto) 82.0 H Lymph % (Auto) 8.7 L [place] % (Auto) 7.7 Eos % (Auto) 0.7 Baso % (Auto) 0.4 Lymph # (Auto) 0.96 [place] # (Auto) 0.9 H Eos # (Auto) 0.1 Baso # (Auto) 0.0 Abs Immat Gran (auto) 0.05 H Absolute Neuts (auto) 9.0 H Absolute Nucleated RBC 0.000 Nucleated RBC % 0.0 Sodium 136 L Potassium 4.0 Chloride 106 Carbon Dioxide 25 Anion Gap 5 BUN 20 Creatinine 0.91 Estim Creat Clear Calc 58 Estimated GFR > 60 Glucose 115 H Calcium 8.4
[2025-05-24] MEDS: FAMOTIDINE 20 MG TABLET PO (08:36)
[2025-05-24] MEDS: PANTOPRAZOLE 40 MG TABLET PO (08:36)
[2025-05-24] MEDS: SENNA/DOCUSATE SODIUM TABLET 2 TAB PO (08:36)
[2025-05-24] MEDS: ASPIRIN 81 MG ENTERIC TABLET PO (08:36)
[2025-05-24] MEDS: ACETAMINOPHEN 325 MG TABLET 650 MG PO (08:36)
[2025-05-24] MEDS: MELOXICAM 7.5 MG TABLET PO (08:36)
== END 2025-05-24 11:10 | disposition home or self-care (01) ==
LOC: ANHSURGERY 07:22 → ANH3MEDSUR 11:32
PROVIDERS: Physician Assistant Surgical; PCP Family Medicine; Visit Provider Orthopaedic Surgery
PROC: (CPT 27447; principal; 2025-05-23 07:30)
DX: M17.11 Unilateral primary osteoarthritis, right knee (principal); G89.29 Other chronic pain; R10.11 Right upper quadrant pain; I67.2 Cerebral atherosclerosis; Z79.1 Long term (current) use of non-steroidal anti-inflammatories (NSAID); Z87.891 Personal history of nicotine dependence; Z87.11 Personal history of peptic ulcer disease; Z87.19 Personal history of other diseases of the digestive system
CPT/HCPCS: 27447; 36415; 73560; 80048; 85025; 86850; 86900; 86901; 97110; 97161; 97166; 97530; 97535; J0690; A9270; C1713; C1776; J0166; J1171; J1885; J2003; J2270; J2405; J2704; J2795; J3010; J3290; J7120; J7512